=== PATIENT | male | born 1950 | race Two or more races ===

== ENCOUNTER 2019-11-22 08:35 | Outpatient (REF) | payer MEDICARE, OTHER, SELFPAY ==
[2019-11-22 10:15] LABS: Estmated Average Glucose 128; Hemoglobin A1C 6.1 % (4.0-6.0)
[2019-11-22 13:57] LABS: Cholesterol 186 mg/dL (0-200); Glucose 91 mg/dL (65-115); HDL Cholesterol 62 mg/dL (60-100); LDL Cholesterol Calculated 108 mg/dL (50-129); LDL HDL Ratio 1.74 RATIO (0.00-3.22); Triglycerides 78 mg/dL (0-150)
== END 2019-11-22 08:36 | disposition home or self-care (01) ==
LOC: LAB 08:35
PROVIDERS: Family Provider Family Medicine; PCP Family Medicine; Visit Provider Dermatology
DX: Z01.89 Encounter for other specified special examinations (principal)
CPT/HCPCS: 80061; 82947; 83036

== ENCOUNTER → 2020-03-13 10:08 | Outpatient (BNVA) | payer MEDICARE, OTHER, SELFPAY | PROVIDERS: Family Provider Family Medicine; PCP Family Medicine; Referring Provider Family Medicine; Visit Provider Orthopaedic Surgery | DX: M17.11 Unilateral primary osteoarthritis, right knee (principal) | CPT/HCPCS: 73560; 73565 ==

== ENCOUNTER 2020-03-23 09:40 | Outpatient (CLI) | payer MEDICARE, OTHER, SELFPAY ==
--- NOTE | 2020-03-23 09:58 | MR_ITS ---
WS: [id number] MRI LEFT SHOULDER NONCONTRAST TECHNIQUE: Sagittal T2, coronal T1, T2 and proton density imaging. Axial gradient PDE imaging. CLINICAL INFORMATION: Z98.890 Other specified postprocedural states... COMPARISON: MRI November 05, 2018 FINDINGS: Prior postoperative changes rotator cuff anchors. Postoperative changes are new since the prior exami nations. Repair of the anterior supraspinatus previously described full-thickness tear. Moderate dege nerative arthritis at the AC joint. Mild narrowing of the subacromial space. Chronic thinning of the distal supraspinatus and infraspinatus tendons which appear intact. Biceps te ndon is atrophic within the bicipital groove. This appears progressed from previous with suspected in tra-articular tear of the biceps tendon. Soft tissue thickening at the biceps labral anchor likely du e to retraction. Intrasubstance tear of the proximal subscapularis tendon is unchanged. Degenerative fraying of the gl enoid labrum. MR/MR shoulder LT wo con* [id number] IMPRESSION: 1. Postoperative changes are new since the prior examination with rotator cuff repair. 2. Chronic thinning of the distal supraspinatus which appears intact. 3. Chronic appearing thinning of the distal infraspinatus which appears intact . 4. Normal teres minor. 5. Intrasubstance tear involving the subscapularis similar to previous. 6. Atrophic biceps tendon within the bicipital groove. Intra-articular tear in volving the biceps tendon with thickening and retraction of the biceps labral a nchor. This appears new from previous. Some of this may be postoperative. 7. Moderate degenerative arthritis at the AC joint with mild edema.
== END 2020-03-23 09:41 | disposition home or self-care (01) ==
LOC: RADWPI 09:53
PROVIDERS: Family Provider Family Medicine; PCP Family Medicine; Visit Provider Orthopaedic Surgery
DX: Z98.890 Other specified postprocedural states (principal); S46.812A Strain of other muscles, fascia and tendons at shoulder and upper arm level, left arm, initial encounter; X58.XXXA Exposure to other specified factors, initial encounter; M19.012 Primary osteoarthritis, left shoulder
CPT/HCPCS: 73221

== ENCOUNTER 2020-07-31 07:21 | Outpatient (CLI) | payer MEDICARE, OTHER, SELFPAY ==
--- NOTE | 2020-07-14 08:33 | PC.NURSE ---
on 07/14 pt came in for stress test. pt stated he had a half a cup of coffee this am and ate breakfast. i gave pt instruction sheet with instruction for the day before and the morning of newly scheduled stress test. pt stated he never received instruction sheet.
--- NOTE | 2020-07-31 07:29 | NMCV_ITS ---
NM kanu perf SPECT r/s* [id number] AshleyRizwan bai Age: 69 Gender: M : 1950 Exam Date: 07/31/2020 08:48 Ordering Phys: Landon Gilliland MD Technologist: ABDOULAYE Caputo Exam Location: [facility] Indications: SHORTNESS OF BREATH STRESS TEST [facility] IMAGE PROTOCOL Rest/Stress 1 Exercise Day Radiopharmaceutical Dose (mCi) Administration Site Administered by Rest: Tc-99m 10.7 IV ABDOULAYE Ibarra Sestamibi Stress:Tc-99m 32.6 IV ABDOULAYE Ibarra Sestamibi Rest: 31-Jul-2020 60 Discovery 630 Stress: 31-Jul-2020 15 Discovery 630 Radiopharmaceutical was injected at 90 % maximum heart rate. Images obtained in supine and prone position. SPECT RESULTS Technical Quality: Good Raw Data Analysis: Normal Image Corrections: Patient motion artifact - motion correction applied to stress images. Subdiaphragmatic attenuation artifact. Summed Stress Score: 5 Summed Rest Score: 4 Summed Difference Score: 2 PERFUSION FINDINGS Small size perfusion abnormality of mild severity of mid inferoseptal, apical septal and apical inferior wall on rest images with mild reversibility in mid inferior wall on supine stress images. There is improved tracer uptake on prone stress images. This is suggestive of attenuation artifact. FUNCTIONAL RESULTS (calculated via Gated SPECT) Stress Image LV EF (%): 58 Stress EDV (mL):129 TID: 0.81 Stress ESV (mL):54 FUNCTIONAL FINDINGS: The left ventricle is normal in size. Transient Ischemia Dilatation of 0.81. There is normal left ventricular systolic function. The left ventricular ejection fraction is normal with a value of 58%. There is normal left ventricular wall thickening. Normal end-diastolic and end-systolic volumes. IMPRESSIONS 1. Myocardial perfusion imaging is normal. Attenuation artifact noted in inferior and inferoseptal yi. 2. The left ventricular ejection fraction is normal with a value of 58%. 3. Overall left ventricular systolic function is normal without regional wall motion abnormalities. 4. No coronary ischemia based on the study. 5. No prior similar studies to compare. Cristiane Blanchard MD (Electronically Signed) Final Date: 03 August 2020 18:50 S
--- NOTE | 2020-07-31 07:29 | ECG_ITS ---
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 Interpretive Statements NAME OF STUDY: EXERCISE SESTAMIBI STRESS TEST INDICATION: Shortness of Breath Baseline blood pressure of 123/90 mm Hg, heart rate 84 beats per minute and oxygen saturation 97%. EKG showed normal sinus rhythm, normal axis with possible old anteroseptal infarct. The patient exercised for 10 minutes 17 seconds on a standard Rohan protocol. Patient attained a maximum heart rate of 144 beats per minute(94% of the maximum predicted heart rate) with a blood pressure at the peak exercise of 194/105 mm Hg and oxygen saturation 89%. The EKG at the peak exercise revealed sinus tachycardia with no significant ST-T wave changes. Frequent isolated PVCs noted at peak exercise. Patient did not have any chest pain or any significant arrhythmis with the exercise. During the recovery phase, there were no new changes. Blood pressure at the end of the recovery phase was 165/106 mm Hg with a heart rate of 77 beats per minute and oxygen saturation 97%. CONCLUSION: 1. Normal EKG response to treadmill exercise. 2. No exercise-induced chest pain or cardiac arrhythmia 3. Excellent exercise tolerance, attained a maximum of 13.5 METs. Maximum VO2 of 47.3 mL/kg/min. 4. Baseline normal blood pressure with normal response to exercise. 5. Perfusion scan will be documented separately. Electronically Signed On 08-03-2020 18:41:54 CDT by Cristiane Blanchard M.D. [id number]
[2020-07-31 09:23] VITALS: BMI 27.6
[2020-07-31 10:02] VITALS: BP 165/106; PULSE 75
== END 2020-07-31 07:22 | disposition home or self-care (01) ==
LOC: CDL 07:21
PROVIDERS: PCP Family Medicine; Visit Provider Family Medicine
DX: R06.02 Shortness of breath (principal)
CPT/HCPCS: 78452; 93017; A9500

== ENCOUNTER 2020-10-28 13:29 | Outpatient (CLI) | payer MEDICARE, OTHER, SELFPAY ==
--- NOTE | 2020-10-28 13:34 | MR_ITS ---
WS: [id number] MRI LUMBAR SPINE NONCONTRAST TECHNIQUE: Sagittal T1, T2 and STIR imaging. Axial T1 and T2 imaging. CLINICAL INFORMATION: RIGHT SIDE SCIATICA COMPARISON: FINDINGS: Counting performed from the craniocervical junction. 6 lumbar type vertebral bodies labeled L1 through L6. Lumbar scoliosis. No acute compression. No high-grade central canal stenosis. Degenerative disc disea se progressed since 2012. L1-L2: Mild annular bulging. Mild facet arthropathy. Spinal canal and foramen are patent. L2-L3: Mild disc bulging with osteophytic ridging. Impingement on the right subarticular recess. Mild right and no significant left foraminal narrowing. Mild facet arthropathy. L3-L4: Mild disc bulging with mild central canal stenosis. Narrowing of the right subarticular recess . Moderate facet arthropathy. Moderate right foraminal narrowing. L4-L5: Mild disc bulging with endplate ridging. Mild central canal stenosis. Impingement on the left subarticular recess. Mild right foraminal narrowing. Left foramen is patent. Moderate facet arthropat hy. L5-L6: Disc osteophyte complex with endplate ridging. Narrowing of the right subarticular recess. Mod erate left and mild right foraminal narrowing. Moderate facet arthropathy. L6-S1: Slight anterolisthesis. Disc osteophyte complex endplate ridging. Moderate facet arthropathy. Mild right and no significant left foraminal narrowing. Slight effacement of ventral thecal sac. Peripelvic left renal cysts MR/MR lumbar spine wo con* [id number] IMPRESSION: 1. Lumbar scoliosis. No acute compression. 2. Degenerative disc disease is progressed since 2012 with disc space narrowing throughout the lumbar spine. 3. Counting is performed from the craniocervical junction with 6 lumbar type v ertebral bodies labeled L1 through 6. 4. Mild central canal stenosis L3-L4 and L4-L5 due to small disc osteophyte pr otrusions. Impingement on the right subarticular recess L3-L4 and left subartic ular recess L4-5. 5. Disc osteophyte complex with impingement on the right L5-L6 subarticular re cess. 6. Mild to moderate foraminal narrowing worse at right L3-4, right L4-5, and l eft L5-L6.
== END 2020-10-28 13:30 | disposition home or self-care (01) ==
LOC: RADSHAW 13:33
PROVIDERS: PCP Family Medicine; Visit Provider Family Medicine
DX: M54.31 Sciatica, right side (principal); M25.78 Osteophyte, vertebrae; M48.061 Spinal stenosis, lumbar region without neurogenic claudication; M51.36 Other intervertebral disc degeneration, lumbar region; M41.86 Other forms of scoliosis, lumbar region
CPT/HCPCS: 72148

== ENCOUNTER → 2020-10-29 14:43 | Outpatient (BNVA) | payer MEDICARE, OTHER, SELFPAY | PROVIDERS: PCP Family Medicine; Referring Provider Family Medicine; Visit Provider Orthopaedic Surgery | DX: M77.8 Other enthesopathies, not elsewhere classified (principal); M46.06 Spinal enthesopathy, lumbar region; M54.5 Low back pain; M25.551 Pain in right hip; M47.896 Other spondylosis, lumbar region | CPT/HCPCS: 72114; 73502 ==

== ENCOUNTER → 2020-11-05 08:41 | Outpatient (BNVA) | payer MEDICARE, OTHER, SELFPAY | PROVIDERS: PCP Family Medicine; Referring Provider Orthopaedic Surgery; Visit Provider Anesthesiology Pain Medicine | DX: M54.9 Dorsalgia, unspecified (principal); M47.816 Spondylosis without myelopathy or radiculopathy, lumbar region; M51.36 Other intervertebral disc degeneration, lumbar region; M19.90 Unspecified osteoarthritis, unspecified site; M25.551 Pain in right hip | CPT/HCPCS: 99205 ==

== ENCOUNTER → 2020-11-09 08:33 | Outpatient (BNVA) | payer MEDICARE, OTHER, SELFPAY | PROVIDERS: PCP Family Medicine; Visit Provider Anesthesiology Pain Medicine | DX: M25.551 Pain in right hip (principal); M54.9 Dorsalgia, unspecified | CPT/HCPCS: 20610; 77002; J1030; J3490 ==

== ENCOUNTER → 2020-11-17 08:49 | Outpatient (BNVA) | payer MEDICARE, OTHER, SELFPAY | PROVIDERS: PCP Family Medicine; Visit Provider Anesthesiology Pain Medicine | DX: M25.551 Pain in right hip (principal); M79.604 Pain in right leg; M47.816 Spondylosis without myelopathy or radiculopathy, lumbar region; M51.36 Other intervertebral disc degeneration, lumbar region; M54.9 Dorsalgia, unspecified; M19.90 Unspecified osteoarthritis, unspecified site | CPT/HCPCS: 99215 ==

== ENCOUNTER → 2020-11-20 08:16 | Outpatient (BNVA) | payer MEDICARE, OTHER, SELFPAY | PROVIDERS: PCP Family Medicine; Visit Provider Anesthesiology Pain Medicine | DX: M54.16 Radiculopathy, lumbar region (principal); M54.9 Dorsalgia, unspecified | CPT/HCPCS: 64483; 64484; J1100; J3490 ==

== ENCOUNTER → 2020-12-07 14:38 | Outpatient (BNVA) | payer MEDICARE, OTHER, SELFPAY | PROVIDERS: PCP Family Medicine; Visit Provider Anesthesiology Pain Medicine | DX: M54.9 Dorsalgia, unspecified (principal); M19.90 Unspecified osteoarthritis, unspecified site; M47.816 Spondylosis without myelopathy or radiculopathy, lumbar region; M51.36 Other intervertebral disc degeneration, lumbar region | CPT/HCPCS: 99214 ==

== ENCOUNTER → 2020-12-21 12:56 | Outpatient (BNVA) | payer MEDICARE, OTHER, SELFPAY | PROVIDERS: PCP Family Medicine; Visit Provider Anesthesiology Pain Medicine | DX: M47.816 Spondylosis without myelopathy or radiculopathy, lumbar region (principal); M54.9 Dorsalgia, unspecified | CPT/HCPCS: 64493; 64494; 64495; J3490 ==

== ENCOUNTER → 2020-12-28 10:11 | Outpatient (BNVA) | payer MEDICARE, OTHER, SELFPAY | PROVIDERS: PCP Family Medicine; Visit Provider Anesthesiology Pain Medicine | DX: M54.9 Dorsalgia, unspecified (principal); M19.90 Unspecified osteoarthritis, unspecified site; M47.816 Spondylosis without myelopathy or radiculopathy, lumbar region; M51.36 Other intervertebral disc degeneration, lumbar region | CPT/HCPCS: 99214 ==

== ENCOUNTER → 2021-04-21 14:05 | Outpatient (BNVA) | payer MEDICARE, OTHER, SELFPAY | PROVIDERS: PCP Family Medicine; Visit Provider Anesthesiology Pain Medicine | DX: M47.816 Spondylosis without myelopathy or radiculopathy, lumbar region (principal); M54.9 Dorsalgia, unspecified; Z87.891 Personal history of nicotine dependence | CPT/HCPCS: 64635; 64636; J1030 ==

== ENCOUNTER → 2021-05-03 09:51 | Outpatient (BNVA) | payer MEDICARE, OTHER, SELFPAY | PROVIDERS: PCP Family Medicine; Visit Provider Anesthesiology Pain Medicine | DX: M51.36 Other intervertebral disc degeneration, lumbar region (principal); M47.816 Spondylosis without myelopathy or radiculopathy, lumbar region; M25.551 Pain in right hip; M19.90 Unspecified osteoarthritis, unspecified site; Z87.891 Personal history of nicotine dependence | CPT/HCPCS: 99214 ==

== ENCOUNTER → 2021-05-07 13:13 | Outpatient (BNVA) | payer MEDICARE, OTHER, SELFPAY | PROVIDERS: PCP Family Medicine; Visit Provider Anesthesiology Pain Medicine | DX: M25.551 Pain in right hip (principal); M54.9 Dorsalgia, unspecified; Z87.891 Personal history of nicotine dependence | CPT/HCPCS: 20610; 77002; J1030; J3490 ==

== ENCOUNTER → 2021-05-17 13:30 | Outpatient (BNVA) | payer MEDICARE, OTHER, SELFPAY | PROVIDERS: PCP Family Medicine; Visit Provider Anesthesiology Pain Medicine | DX: M47.816 Spondylosis without myelopathy or radiculopathy, lumbar region (principal); Z87.891 Personal history of nicotine dependence | CPT/HCPCS: 64635; 64636; J1030 ==

== ENCOUNTER 2021-05-26 08:52 | Outpatient (CLI) | payer MEDICARE, OTHER, SELFPAY ==
--- NOTE | 2021-05-26 09:30 | XR_ITS ---
WS: [id number] Chest 2 views, 05/26/2021 Clinical Data: sob Comparison: Portable chest, 07/16/2017. Findings: No nodules, masses or effusions are seen. The heart is normal. The pulmonary vascularity is not increased. No pneumonia or pneumothorax is seen. The aortic arch and descending aorta show calci fication and tortuosity. The diaphragms are flattened. XR/XR chest 2V* [id number] Impression: Atherosclerosis and hyperinflation.
== END 2021-05-26 08:53 | disposition home or self-care (01) ==
LOC: RAD 08:56
PROVIDERS: PCP Family Medicine; Visit Provider Internal Medicine Critical Care Medicine
DX: R06.02 Shortness of breath (principal); I70.90 Unspecified atherosclerosis
CPT/HCPCS: 71046

== ENCOUNTER → 2021-07-15 08:46 | Outpatient (BNVA) | payer MEDICARE, OTHER, SELFPAY | PROVIDERS: PCP Family Medicine; Visit Provider Internal Medicine Critical Care Medicine | DX: Z20.822 Contact with and (suspected) exposure to COVID-19 (principal) | CPT/HCPCS: 87635 ==

== ENCOUNTER 2021-07-21 09:03 | Outpatient (CLI) | payer MEDICARE, OTHER, SELFPAY ==
--- NOTE | 2021-07-21 13:18 | PFTS_ITS ---
Date of Study:07/21/21 Date of Dictation: MECHANICS: Forced vital capacity (FVC) is normal. Forced expiratory volume in one second (FEV1) is reduced. FEV1/FVC is reduced. FLOW VOLUME LOOP: Reduced flow at all lung volumes with significant scooping. LUNG VOLUMES: Total lung capacity (TLC) is increased. Residual volume (RV) is increased. DIFFUSING CAPACITY FOR CARBON MONOXIDE: Normal. INTERPRETATION: The pulmonary function tests are consistent with moderate airflow obstruction. There is a significant postbronchodilator response. Lung volumes are consistent with hyperinflation and air trapping. Gas exchange (DLCO) is normal. MTDD
== END 2021-07-21 09:04 | disposition home or self-care (01) ==
LOC: RT 09:05
PROVIDERS: PCP Family Medicine; Visit Provider Internal Medicine Critical Care Medicine
DX: R06.02 Shortness of breath (principal)
CPT/HCPCS: 94060; 94726; 94729; J7611

== ENCOUNTER 2022-01-28 14:06 | Emergency (ER) | payer MEDICARE, OTHER, SELFPAY ==
[2022-01-28 14:28] VITALS: BP 118/64; PULSE 67; RESP 16; TEMP 36.6; O2SAT 94; BMI 27.6
--- NOTE | 2022-01-28 15:52 | USR_ITS ---
PROCEDURE INFORMATION: Exam: US Duplex Right Lower Extremity Veins, Limited Exam date and time: 01/28/2022 4:29 PM Age: 71 years old Clinical indication: Pain; Swelling (edema) of limb; Lower extremity, right; Leg, lower; Prior surgery; Surgery date: 1-6 months; Surgery type: RT hip; Patient HX: Recent fall; Additional info: Swelling and concern for dvt TECHNIQUE: Imaging protocol: Real-time Duplex ultrasound of the Right Lower Extremity with 2-D cortez scale, color Doppler flow and spectral waveform analysis with image documentation. Limited exam was focused on the right lower extremity veins. COMPARISON: CT abdomen pelvis wo con [id number] 10/23/2018 10:37 PM FINDINGS: Right deep veins: Unremarkable. The common femoral, femoral, proximal profunda femoral and popliteal veins are patent without thrombus. Normal Doppler waveforms. Normal compressibility and/or augmentation response. Right superficial veins: Unremarkable. Saphenofemoral junction is patent without thrombus. Soft tissues: Unremarkable. US/[place] [id number] IMPRESSION: No evidence of deep vein thrombosis.
--- NOTE | 2022-01-28 16:03 | ED_ITS ---
HPI - Extremity Problem General: Chief complaint: Extremity Problem,Nontraumatic Stated complaint: Fall, poss bloodclot Time Seen by Provider: 01/28/22 15:42 History of Present Illness: Patient comes in with right leg swelling. States that he fell about a week ago landing on his right hip which was replaced surgically about 6 months ago. States that since that time he has developed significant swelling in his right lower extremity. States he already knows that he has arthritis in the knee on the right side and is scheduled for consultation for replacement this next week. States that he was directed to the emergency department with concerns for blood clot. Associated symptoms: Deny chest pain, fever(s) or rash Review of Systems Const: Denies: fever(s) or body aches Eyes: Denies: change in vision or blurry vision ENMT: Denies: throat pain or odynophagia Card: Denies: chest pain or palpitations Resp: Denies: dyspnea or productive cough GI: Denies: abdominal pain, nausea or vomiting : Denies: flank pain or dysuria Musc: Reports: other (Right lower extremity swelling and pain); Denies: neck pain or back pain Skin/Breast: Denies: rash or pruritus Neuro: Denies: headache(s) or numbness in extremities Psych: Denies: anxiety or change in appetite Endo: Denies: polyuria or excessive sweating PFSH ED PFSH: Medical History Atopic dermatitis Barretts esophagus Chronic low back pain Elevated liver enzymes Hiatal hernia with GERD Hypercholesterolemia Hyperglycemia Testosterone deficiency Surgical History History of appendectomy History of bowel resection History of hernia repair Status post arthroscopy of left shoulder Family History Other Cancer Denies family history of Anesthesia complication Bleeding disorder Social History Smoking and tobacco status: former smoker Quit status (tobacco): has quit using tobacco Year quit tobacco: 1991 Former quit date comment: Hx of 1 PPD x 21 Years Second hand smoke exposure: No Smoking risk assessment/counseling performed?: No Alcohol intake: current Alcohol intake frequency: few times a month Alcohol type: beer Counseling given: No Counseling given: No Lives independently: Yes Household members: spouse Marital status: Current occupational status: retired 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 History of recent travel: No Current gender identity: Male Physical Exam Const: COMMON NORMALS: no acute distress, patient oriented x3, healthy appearing and alert HENMT: COMMON NORMALS: normocephalic and atraumatic HEAD & SCALP: normocephalic and atraumatic Eye: COMMON NORMALS: Equal, round and reactive pupils present and EOMs intact bilaterally PUPIL: Yes Equal, round and reactive pupils present Neck/C-Spine: COMMON NORMALS: full ROM and supple Resp: COMMON NORMALS: normal respiratory effort, No retractions and No use of accessory muscles Cardio: COMMON NORMALS: regular rate and regular rhythm RATE: regular rate RHYTHM: regular rhythm GI: COMMON NORMALS: Normal to inspection, nondistended, normoactive bowel sounds present, Soft to palpation and non-tender PALPATION: Yes Soft to p alpation Back/Pelvis: COMMON NORMALS: thoracic and lumbar spine normal to inspection and no thoracic nor lumbar tenderness Extremity: NARRATIVE EXTREMITY EXAM: Right lower extremity swelling with tenderness of his posterior calf Neuro: COMMON NORMALS: patient oriented x3 SENSORIUM/ORIENTATION: Yes alert Psych: COMMON NORMALS: mental status grossly normal and cooperative Skin: COMMON NORMALS: no rashes or lesions noted and no wounds GENERAL SKIN EXAM: no rashes or lesions noted Course Vital Signs: Vital signs: Vital Signs Temperature 97.8 F 01/28/22 14:28 Pulse Rate 67 01/28/22 14:28 Respiratory Rate 16 01/28/22 14:28 Blood Pressure 118/64 01/28/22 14:28 Pulse Oximetry 94 01/28/22 14:28 MDM - Extremity (Nontraumatic) Medical Decision Making Patient comes in with right leg swelling. States that he fell about a week ago landing on his right hip which was replaced surgically about 6 months ago. States that since that time he has developed significant swelling in his right lower extremity. States he already knows that he has arthritis in the knee on the right side and is scheduled for consultation for replacement this next week. States that he was directed to the emergency department with concerns for blood clot. On physical exam his right leg is swollen when compared to the left leg. Will check ultrasound, and reassess. On reassessment I talked to the patient about the test results. Will discharge home at this time with precautions to return for worsening or changing symptoms. Lab Data Radiology Impressions Venous Duplex 01/28/22 15:52 IMPRESSION: No evidence of deep vein thrombosis. Discharge Plan Discharge Patient Disposition: Home Clinical Impression: Pain and swelling of right lower leg Condition: Stable Prescriptions: No Action simvastatin [Zocor] 20 mg tablet 20 mg PO DAILY 0RF fluticasone propionate [Allergy Relief (fluticasone)] 50 mcg/actuation spray,suspension 1 spray INTRANASAL PRN PRN (Reason: Allergy Symptoms) 0RF Rx Instructions: administer into each nostril esomeprazole magnesium 20 mg capsule,delayed release(DR/EC) 20 mg PO DAILY 0RF polyethylene glycol 3350 [Miralax] 17 gram powder in packet 17 g PO BID 0RF docusate sodium 100 mg capsule 100 mg PO BID 0RF albuterol sulfate 90 mcg/actuation HFA aerosol inhaler 2 puff inhalation Q6H PRN (Reason: shortness of breath or wheezing) 30 Days Qty: 8.5 4RF Discharge Orders: Discharge ED (Routine); Ordered 01/28/22 Ordered By: Landon Hernandes Referrals: Landon Gilliland MD [Primary Care Provider] - Coding Level of Care Code ED Ophthalmology Surgical Technician for Chg Fwd Exam Comprehensive
[2022-01-28] MEDS: ketorolac 60 mg/2 mL INJ IM (16:06)
[2022-01-28 17:37] VITALS: BP 128/94; PULSE 64; RESP 16; O2SAT 97
== END 2022-01-28 17:38 | disposition home or self-care (01) ==
PROVIDERS: Emergency Provider Emergency Medicine; PCP Family Medicine
DX: M79.89 Other specified soft tissue disorders (principal); M79.661 Pain in right lower leg; Z96.641 Presence of right artificial hip joint
CPT/HCPCS: 93971; 96372; 99283; J1885

== ENCOUNTER → 2022-04-20 10:46 | Outpatient (BNVA) | payer MEDICARE, OTHER, SELFPAY | PROVIDERS: PCP Family Medicine; Visit Provider Internal Medicine Critical Care Medicine | DX: J45.909 Unspecified asthma, uncomplicated (principal); R06.02 Shortness of breath; Z87.891 Personal history of nicotine dependence | CPT/HCPCS: 82785; 86003; 99213; 99214 ==

== ENCOUNTER 2022-05-09 18:02 | Inpatient (IN) | payer MEDICARE, OTHER, SELFPAY ==
[2022-05-09] VITALS (9 sets, daily range): BP systolic 98–150; BP diastolic 66–93; PULSE 18–82; RESP 16–20; TEMP 36.6–37.1; O2SAT 95–97; BMI 27.6
[2022-05-09 19:32] LABS: Basophils % 0.3 %; Eosinophils % 0.3 %; Hematocrit 47.1 % (42.0-52.0); Hemoglobin 14.7 g/dL (11.7-16.6); Lymphocytes # 1.9 10^3/uL (0.8-4.8); Lymphocytes % 21.7 %; Mean Corpuscular HGB Conc 31.2 g/dL (30.0-36.0); Mean Corpuscular Hemoglobin 29.6 pg (28.0-34.0); Mean Platelet Volume 10.2 fL (7.4-10.4); Monocytes # 0.8 10^3/uL (0.2-0.9); Monocytes % 8.5 %; Neutrophils # 6.05 10^3/uL (1.8-7.7); Nucleated Red Blood Cells % 0 %; Platelet Count 215 10^3/cmm (130-400); Red Blood Count 4.96 10^6/uL (4.1-5.3); Red Cell Distribution Width 14.2 % (12.1-15.1); White Blood Count 8.8 10^3/uL (4.0-10.0)
--- NOTE | 2022-05-09 19:45 | CTR_ITS ---
PROCEDURE INFORMATION: Exam: CT Abdomen And Pelvis With Contrast Exam date and time: 05/09/2022 8:46 PM Age: 71 years old Clinical indication: Abdominal tenderness and bloating; Prior surgery; Surgery date: 6+ months; Surgery type: Hiatal hernia, barrets esophagus, appx, bowel hernia repair; Additional info: Abd distension, HX of sbo, colectomy, hiatal hernia TECHNIQUE: Imaging protocol: Computed tomography of the abdomen and pelvis with contrast. Radiation optimization: All CT scans at this facility use at least one of these dose optimization techniques: automated exposure control; mA and/or kV adjustment per patient size (includes targeted exams where dose is matched to clinical indication); or iterative reconstruction. Contrast material: OMNIPAQUE 350; Contrast volume: 95 ml; Contrast route: INTRAVENOUS (IV); COMPARISON: CT abdomen pelvis wo con [id number] 10/23/2018 10:37 PM RADIATION DOSE METRICS: Total DLP (mGy-cm): 1590.73 FINDINGS: Liver: Normal. No mass. Gallbladder and bile ducts: Cholecystectomy. The bile ducts are normal. Pancreas: Normal. No ductal dilation. Spleen: Normal. No splenomegaly. Adrenal glands: Normal. No mass. Kidneys and ureters: Multiple small hypodensities in the central kidneys, left greater than right are most likely small central cysts, Hounsfield units less than 20. No follow-up imaging recommended. No calculus or hydronephrosis. Stomach and bowel: Partial resection of the proximal colon with ileocolonic anastomosis at the hepatic flexure. Moderate stool throughout the colon to the rectum. Multiple loops of dilated small bowel with nondifferential air-fluid levels measuring up to 3.9 cm. An exact transition point is not identified but is most likely in the right abdomen. The terminal ileum is relatively decompressed. Anterior laparotomy scar. Appendix: No evidence of appendicitis. Intraperitoneal space: Pelvic ascites. No free air. Vasculature: Arterial calcifications. No aneurysm. Lymph nodes: Unremarkable. No enlarged lymph nodes. Urinary bladder: Unremarkable as visualized. Reproductive: Small calcified testicles. Coarse calcifications in a normal sized prostate. Bones/joints: Right hip arthroplasty hardware with streak artifact. Degenerative and scoliotic spine. No acute fracture. Soft tissues: See Stomach and bowel finding. CT/CT abdomen pelvis w con* [id number] IMPRESSION: 1. Distal small bowel obstruction which may be partial. 2. Large volume of stool in the colon could indicate constipation. 3. Pelvic ascites. COMMENTS: Consistent with the [employer] [place] [employer]'s Incidental Findings Committee white paper (J Am Shawna Radiol 2018): Any incidental renal lesion less than 1 cm or classified as too small to characterize, or any incidental cystic renal lesion characterized as simple-appearing, is likely benign. No follow-up imaging is recommended for these lesions per consensus recommendations based on imaging criteria.
[2022-05-09 19:50] LABS: INR 1.03 (0.8-1.2)
[2022-05-09 20:01] LABS: Alanine Aminotransferase 236 U/L (0-41); Albumin Level 4.4 g/dL (3.5-5.2); Alkaline Phosphatase 115 IU/L (40-130); Blood Urea Nitrogen 16 mg/dL (8-23); Calcium 9.7 mg/dL (8.5-10.5); Carbon Dioxide 30 mmol/L (22-29); Chloride 102 mmol/L (98-107); Globulin 2.8 g/dL (1.3-4.6); Glomerular Filtration Rate 95.6 mL/min (90-130); Glucose 106 mg/dL (65-115); Lipase 23 U/L (13-60); Osmolality Calculated 292 mOsm/kg (285-295); Sodium 140 mmol/L (136-145); Total Bilirubin 1.2 mg/dL (0.15-1.2); Total Protein 7.2 g/dL (6.6-8.7)
--- NOTE | 2022-05-09 20:02 | ECG_ITS ---
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 Measurements Intervals [place] Rate: 74 P: 74 IA: 168 QRS: 52 QRSD: 90 T: 78 QT: 378 QTc: 421 Interpretive Statements SINUS RHYTHM NONSPECIFIC ST & T-WAVE ABNORMALITY Compared to ECG 11/19/2018 11:49:25 T-wave abnormality now present Electronically Signed On 05-09-2022 21:00:42 CDT by Franky Sterling M.D. [id number]
--- NOTE | 2022-05-09 20:06 | W.ED.GENADLT ---
HPI - General Adult General: Chief complaint: Nausea/Vomiting/Diarrhea Stated complaint: Throwing up black stuff-sent by Time Seen by Provider: 05/09/22 19:23 History of Present Illness: Patient is a 71-year-old male with a history of colectomy, multiple abdominal hernia repair, hiatal hernia, small bowel obstruction presenting to the emergency room with complaints of intermittent diffuse abdominal pain, nausea/vomiting. Patient tells me that since yesterday he has had over 10 episodes of emesis. Patient's last episode of emesis which his noted earlier today was dark. Patient reports that yesterday he had some abdominal pain but today has not intermittent dull pain throughout. Patient denies any melena/hematochezia, diarrhea, or complaints. No history of renal colic. Patient has been able to tolerate p.o. Patient tells me that he is either concerned about small obstruction recurrent upper GI bleed. Patient is not on any anticoagulation. Patient has no history of cirrhosis, prior peptic ulcers, recent heavy NSAIDs use. Onset:1 day ago Duration:1 day Location:home Severity:moderate Associated symptoms: Reports nausea and vomiting; Deny chest pain, dyspnea, rash or palpitations Review of Systems Const: Denies: fever(s) or chills Eyes: Denies: change in vision ENMT: Denies: mouth pain Card: Denies: chest pain or palpitations Resp: Denies: dyspnea or non-productive cough GI: Reports: abdominal pain, nausea, vomiting and other (+1 episode of dark emesis); Denies: diarrhea : Denies: dysuria Musc: Denies: extremity pain Skin/Breast: Denies: rash or new lesions Neuro: Denies: weakness in extremities Psych: Reports: other (Normal mood) Luis A/Lymph: Denies: easy bruising PFSH ED PFSH: Medical History Atopic dermatitis Barretts esophagus Chronic low back pain Elevated liver enzymes Hiatal hernia with GERD Hypercholesterolemia Hyperglycemia Testosterone deficiency Surgical History History of appendectomy History of bowel resection History of hernia repair Status post arthroscopy of left shoulder Family History Other Cancer Denies family history of Anesthesia complication Bleeding disorder Social History Smoking and tobacco status: former smoker Quit status (tobacco): has quit using tobacco Year quit tobacco: 1991 Former quit date comment: Hx of 1 PPD x 21 Years Second hand smoke exposure: No Smoking risk assessment/counseling performed?: No Alcohol intake: current Alcohol intake frequency: few times a month Alcohol type: beer Counseling given: No Counseling given: No Lives independently: Yes Household members: spouse Marital status: Current occupational status: 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 History of recent travel: No Current gender identity: Male Physical Exam Const: COMMON NORMALS: alert HENMT: COMMON NORMALS: atraumatic HEAD & SCALP: atraumatic MOUTH: moist mucous membranes not abnormal Eye: COMMON NORMALS: EOMs intact bilaterally and conjunctivae normal CONJUNCTIVA: Yes conjunctivae normal Neck/C-Spine: COMMON NORMALS: full ROM and supple Resp: COMMON NORMALS: normal respiratory effort and clear to auscultation bilaterally AUSCULTATION: clear to auscultation bilaterally Cardio: COMMON NORMALS: regular rate RATE: regular rate GI: COMMON NORMALS: Soft to palpation and non-tender PALPATION: Yes Soft to palpation OTHER: No focal TTP. NO guarding rebound, guarding, rigidity. No CVA tenderness to percussion. Neg Wetzel/Neg McBurney's point tenderness, no suprabupic tenderness to palpation. Extremity: COMMON NORMALS: full ROM Neuro: SENSORIUM/ORIENTATION: Yes alert MOTOR EXAM: No Abnormal motor strength present and Other motor observations present (no focal motor deficits) Psych: COMMON NORMALS: speech normal SPEECH: Yes normal speech MOOD & AFFECT: Yes euthymic mood Course Vital Signs: Vital signs: Vital Signs Temperature 98.6 F 05/09/22 19:31 Pulse Rate 81 05/09/22 21:55 Respiratory Rate 18 05/09/22 22:00 Blood Pressure 103/77 05/09/22 22:00 Pulse Oximetry 97 05/09/22 21:55 [facility] - General Adult Medical Decision Making Patient is a 71-year-old male with a history of colectomy, multiple abdominal hernia repair, hiatal hernia, small bowel obstruction presenting to the emergency room with complaints of intermittent diffuse abdominal pain, nausea/vomiting. On physical exam, patient is hemodynamically stable. He has no focal abdominal tenderness to palpation. Hemoglobin of 14.7 today similar to baseline. CT abdomen pelvis did not show any acute pathologies. Patient has not had any episodes of emesis in the emergency room. Patient tolerated p.o. without any difficulty. It is hard to say whether patient had coffee-ground emesis earlier today. White count of 8.8. CT showed partial small bowel obstruction. Case was discussed with Dr. Millan who will follow patient. NG tube and KUB ordered. No signs of emesis. Disposition: admission Lab Data : 05/09/22 19:29 05/09/22 19:29 Radiology Impressions Abdomen/Pelvis CT 05/09/22 19:45 IMPRESSION: 1. Distal small bowel obstruction which may be partial. 2. Large volume of stool in the colon could indicate constipation. 3. Pelvic ascites. COMMENTS: Consistent with the [employer]'s Incidental Findings Committee white paper (J Am Shawna Radiol 2018): Any incidental renal lesion less than 1 cm or classified as too small to characterize, or any incidental cystic renal lesion characterized as simple-appearing, is likely benign. No follow-up imaging is recommended for these lesions per consensus recommendations based on imaging criteria. Laboratory Results WBC 8.8 10^3/uL (4.0-10.0) 05/09/22 19: RBC 4.96 10^6/uL (4.1-5.3) 05/09/22 19: Hgb 14.7 g/dL (11.7-16.6) 05/09/22 19: Hct 47.1 % (42.0-52.0) 05/09/22: MCV 95.0 fl (80-94) H 05/09/22 19: MCH 29.6 pg (28.0-34.0) 05/09/22 19: MCHC 31.2 g/dL (30.0-36.0) 05/09/22: RDW 14.2 % (12.1-15.1) 05/09/22 19: Plt Count 215 10^3/cmm (130-400) 05/09/22 19: MPV 10.2 fL (7.4-10.4) 05/09/22: Neut % (Auto) 69.0 % 05/09/22 19: Lymph % (Auto) 21.7 % 05/09/22 19: [place] % (Auto) 8.5 % 05/09/22: Eos % (Auto) 0.3 % 05/09/22: Baso % (Auto) 0.3 % 05/09/22: Neut # (Auto) 6.05 10^3/uL (1.8-7.7) 05/09/22: Lymph # (Auto) 1.9 10^3/uL (0.8-4.8) 05/09/22: [place] # (Auto) 0.8 10^3/uL (0.2-0.9) 05/09/22: Eos # (Auto) 0.0 10^3/uL (0.0-0.8) 05/09/22 Baso # (Auto) 0.0 10^3/uL (0.0-0.1) 05/09/22 Nucleated RBC % (auto) 0 % 05/09/22 Nucleated RBCs # 0.0 /100WBC 05/09/22: PT 13.80 SECONDS (12.1-14.9) 05/09/22: INR 1.03 (0.8-1.2) 05/09/22: Sodium 140 mmol/L (136-145) 05/09/22: Potassium 4.5 mmol/L (3.5-5.1) 05/09/22: Chloride 102 mmol/L (98-107) 05/09/22: Carbon Dioxide 30 mmol/L (22-29) H 05/09/22: Anion Gap 12.5 (5-19) 05/09/22: BUN 16 mg/dL (8-23) 05/09/22: Creatinine 0.8 mg/dL (0.7-1.2) 05/09/22: GFR Calculation 95.6 mL/min (90-130) 05/09/22: Glucose 106 mg/dL (65-115) 05/09/22: Calculated Osmolality 292 mOsm/kg (285-295) 07/25/22 19:29 Calcium 9.7 mg/dL (8.5-10.5) 05/09/22 19:29 Total Bilirubin 1.2 mg/dL (0.15-1.2) 05/09/22 19:29 AST 181 U/L (0-40) H 05/09/22 19:29 ALT 236 U/L (0-41) H 05/09/22 19:29 Alkaline Phosphatase 115 IU/L (40-130) 05/09/22 19:29 Troponin T Baseline 26 ng/L (0-15) H 05/09/22 19:29 Troponin T 120 Minute 21.31 ng/L (0-15) H 05/09/22 21:16 Delta Troponin T -4.69 ABS# (0-10) L 05/09/22 21:16 Total Protein 7.2 g/dL (6.6-8.7) 05/09/22 19: Albumin 4.4 g/dL (3.5-5.2) 05/09/22 19: Globulin 2.8 g/dL (1.3-4.6) 05/09/22 19: Lipase 23 U/L (13-60) 05/09/22 19:29 Urine Color Yellow (Yellow) 05/09/22 21:50 Urine Appearance Clear (CLEAR) 05/09/22 21:50 Urine pH 7 (5-7) 05/09/22 21:50 Ur Specific [place] 1.005 (1.005-1.030) 05/09/22 21:50 Urine Protein Neg (Negative) 05/09/22 21:50 Urine Glucose (UA) Norm (Normal) 05/09/22 21:50 Urine Ketones Negative (Negative) 05/09/22 21:50 Urine Blood Neg (Negative) 05/09/22 21:50 Urine Nitrate Negative (Negative) 05/09/22 21:50 Urine Bilirubin Neg (Negative) 05/09/22 21:50 Urine Urobilinogen 4 mg/dL (Negative) H 05/09/22 21:50 Ur Leukocyte Esterase Negative (Negative) 05/09/22 21:50 Imaging Data Other Imaging: Radiologist's impression: [address] [address] [address] Scan Report Signed Patient: Rizwan Lobato Unit #: [id number] : 1950 Age/Sex: 71 / M ADM Date: 05/09/22 Loc: ER Room/Bed: Attending Dr: Ordering Provider/Ordering MD: Janell Wilson MD Date of Service: 05/09/22 Procedure(s): CT abdomen pelvis w con* [id number] Accession Number(s): [id number] Report Number: [id number] PROCEDURE INFORMATION: Exam: CT Abdomen And Pelvis With Contrast Exam date and time: 05/09/2022 8:46 PM Age: 71 years old Clinical indication: Abdominal tenderness and bloating; Prior surgery; Surgery date: 6+ months; Surgery type: Hiatal hernia, barrets esophagus, appx, bowel hernia repair; Additional info: Abd distension, HX of sbo, colectomy, hiatal hernia TECHNIQUE: Imaging protocol: Computed tomography of the abdomen and pelvis with contrast. Radiation optimization: All CT scans at this facility use at least one of these dose optimization techniques: automated exposure control; mA and/or kV adjustment per patient size (includes targeted exams where dose is matched to clinical indication); or iterative reconstruction. Contrast material: OMNIPAQUE 350; Contrast volume: 95 ml; Contrast route: INTRAVENOUS (IV);? COMPARISON: CT abdomen pelvis wo con [id number] 10/23/2018 10:37 PM RADIATION DOSE METRICS: Total DLP (mGy-cm): 1590.73 FINDINGS: Liver: Normal. No mass. Gallbladder and bile ducts: Cholecystectomy. The bile ducts are normal. Pancreas: Normal. No ductal dilation. Spleen: Normal. No splenomegaly. Adrenal glands: Normal. No mass. Kidneys and ureters: Multiple small hypodensities in the central kidneys, left greater than right are most likely small central cysts, Hounsfield units less than 20. No follow-up imaging recommended. No calculus or hydronephrosis. Stomach and bowel: Partial resection of the proximal colon with ileocolonic anastomosis at the hepatic flexure. Moderate stool throughout the colon to the rectum. Multiple loops of dilated small bowel with nondifferential air-fluid levels measuring up to 3.9 cm. An exact transition point is not identified but is most likely in the right abdomen. The terminal ileum is relatively decompressed. Anterior laparotomy scar. Appendix: No evidence of appendicitis. Intraperitoneal space: Pelvic ascites. No free air. Vasculature: Arterial calcifications. No aneurysm. Lymph nodes: Unremarkable. No enlarged lymph nodes. Urinary bladder: Unremarkable as visualized. Reproductive: Small calcified testicles. Coarse calcifications in a normal sized prostate. Bones/joints: Right hip arthroplasty hardware with streak artifact. Degenerative and scoliotic spine. No acute fracture. Soft tissues: See Stomach and bowel finding. CT/CT abdomen pelvis w con* [id number] IMPRESSION: 1. Distal small bowel obstruction which may be partial. 2. Large volume of stool in the colon could indicate constipation. 3. Pelvic ascites. ? COMMENTS: Consistent with the [employer]'s Incidental Findings Committee white paper (J Am Shawna Radiol 2018): Any incidental renal lesion less than 1 cm or classified as too small to characterize, or any incidental cystic renal lesion characterized as simple-appearing, is likely benign. No follow-up imaging is recommended for these lesions per consensus recommendations based on imaging criteria. ? Dictated By: Mickey Tony Signed By: Mickey Tony Signed Date/Time: 05/09/222152 DD/ 45 Discharge Plan Discharge Patient Disposition: Admitted As Inpatient Clinical Impression: Vomiting, Abdominal pain, Small bowel obstruction Condition: Stable Coding Level of Care Code ED Roller Leveler for Chg Fwd Exam Comprehensive
[2022-05-09] MEDS: sodium chloride 0.9% 1,000 ML 999 ML IV (20:15)
[2022-05-09] MEDS: lidocaine 2% viscous 15 ML, aluminum-mag hydrox-simethicon 30 ML, sucralfate oral liq 1 GM PO (20:20)
[2022-05-09 20:23] LABS: Anion Gap 12.5 (5-19); Aspartate Amino Transferase 181 U/L (0-40); Potassium 4.5 mmol/L (3.5-5.1)
[2022-05-09 20:38] LABS: Troponin(5th) Baseline 26 ng/L (0-15)
[2022-05-09] MEDS: iohexol 350 mg/mL 100 mL Btl IV (20:54)
--- NOTE | 2022-05-09 21:47 | XRR_ITS ---
PROCEDURE INFORMATION: Exam: XR Abdomen Exam date and time: 05/09/2022 11:17 PM Age: 71 years old Clinical indication: Condition or disease; Other: Small bowel obstruction TECHNIQUE: Imaging protocol: Radiologic exam of the abdomen. Views: Frontal supine view of the abdomen. 1 View. COMPARISON: CT abdomen pelvis w con* [id number] 05/09/2022 8:46 PM FINDINGS: Tubes, catheters and devices: Gastric tube tip in the mid stomach. Gastrointestinal tract: Moderate stool and scattered gas throughout the colon to the rectum. Dilated loops of gas-filled small bowel measuring up to 3.4 cm. Intraperitoneal space: No visible pneumoperitoneum. Organs: Contrast in the urinary bladder. Bones/joints: Right hip arthroplasty. XR/XR KUB portable [id number] IMPRESSION: Dilated small bowel, consistent with small-bowel obstruction.
[2022-05-09 21:59] LABS: Troponin 5 2HR 21.31 ng/L (0-15); Troponin 5 2HR Delta -4.69 ABS# (0-10)
[2022-05-09 22:06] LABS: Add Urine Microscopic? NO; Charge for UA Resulting for Rev
[2022-05-09 22:15] LABS: Bilirubin Urine Neg (Negative); Blood Urine Neg (Negative); Glucose Urine UA Norm (Normal); Ketones Urine Negative (Negative); Leukocyte Esterase Urine Negative (Negative); Nitrate Urine Negative (Negative); Protein Urine Neg (Negative); Specific Gravity, Urine 1.005 (1.005-1.030); Urine Appearance Clear (CLEAR); Urine Color Yellow (Yellow); Urobilinogen Urine 4 mg/dL (Negative); pH Urine 7 (5-7)
[2022-05-09] MEDS: lidocaine 2% viscous 15 mL UDC 30 ML MUCOUS MEM (22:55)
[2022-05-10] VITALS (8 sets, daily range): BP systolic 121–158; BP diastolic 82–92; PULSE 55–73; RESP 13–18; TEMP 36.8–37.3; O2SAT 94–97
[2022-05-10] MEDS: dextrose 5%-sod chloride 0.9% 1,000 ML 75 ML IV ×2 (02:02→16:15)
[2022-05-10] MEDS: pantoprazole 40 mg SDV 80 MG IVP (02:13)
[2022-05-10] MEDS: lanolin oint 7 gm 1 APPLIC TOPICAL (02:25)
[2022-05-10 02:51] LABS: Basophils % 0.2 %; Eosinophils # 0.1 10^3/uL (0.0-0.8); Eosinophils % 1.1 %; Hemoglobin 13.5 g/dL (11.7-16.6); Lymphocytes # 1.9 10^3/uL (0.8-4.8); Lymphocytes % 33.9 %; Mean Corpuscular Hemoglobin 29.5 pg (28.0-34.0); Mean Corpuscular Volume 98.5 fl (80-94); Mean Platelet Volume 10.1 fL (7.4-10.4); Monocytes # 0.5 10^3/uL (0.2-0.9); Monocytes % 9.7 %; Neutrophils # 3.05 10^3/uL (1.8-7.7); Neutrophils % 54.9 %; Nucleated Red Blood Cells % 0 %; Platelet Count 168 10^3/cmm (130-400); Red Blood Count 4.57 10^6/uL (4.1-5.3); Red Cell Distribution Width 14.3 % (12.1-15.1); White Blood Count 5.6 10^3/uL (4.0-10.0)
--- NOTE | 2022-05-10 03:24 | P.HP_ITS ---
Providers/Chief Complaint Admitting Physician: Halima Keith MD Primary Care Provider: Landon Gilliland MD Chief Complaint: Throwing up black stuff-sent by History of Present Illness Rizwan Lobato is a 71 year old male with a past medical history of recurrent small bowel obstruction presenting today with chief complains of multiple episodes of vomiting that started yesterday. Patient estimates he has had 8-10 episodes of vomiting. Today afternoon his vomitus content changed from clear to black tarry which brought up the concern for GI bleeding and he presented into the emergency room after discussion with his primary care provider. He denies any bright red blood in vomitus. Last bowel movement was yesterday. He is currently passing flatus. Has not noticed any bleeding per rectum. Reports epigastric pain. Has had poor po intake but able to keep jello and toast down. no diarrhea. No fever. He has a history of multiple episodes of SBO/colonic obstruction in the past which have been managed conservatively. Also has a history of transverse colectomy with end-to-end anastomosis several years ago which was reportedly a result of obstruction from severely impacted feces. 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 He undergoes regular upper and lower endoscopy and has never been known to have any malignancy or IBD. Also reports a past history of Skaggs's esophagus diagnosed at [facility], reportedly improving on endoscopy 2 years ago. 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 LFTs noted to be deranged dating back to at least 2019. No known h/o cirrhosis or chronic hepatitis. Reports occasional beer intake, no binge drinking. Review of Systems General: Reports: 10 or more systems reviewed and unremarkable except in HPI and below Const: Denies: fever(s), chills or body aches Eyes: Denies: change in vision, blurry vision or photophobia ENMT: Reports: hoarseness; Denies: throat pain, enlarged tonsils, odynophagia or nasal congestion Card: Denies: chest pain, palpitations, irregular heart rhythm, edema, swelling of feet/ankles, lightheadedness, pre-syncope, dyspnea on exertion or orthopnea Resp: Denies: dyspnea, productive cough, non-productive cough, wheezing, stridor, pain on inspiration, change in phlegm color, hemoptysis or chest congestion GI: Denies: abdominal pain, nausea, vomiting, hematemesis, coffee ground emesis, dysphagia, heartburn, diarrhea, constipation, GI cramping, change in stool character, hematochezia or melena : Denies: flank pain, dysuria, urinary frequency, urinary urgency, urinary hesitancy or hematuria Musc: Denies: neck pain, back pain, extremity pain, joint swelling, joint warmth or deformity Neuro: Denies: headache(s), numbness in extremities, weakness in extremities, sensory changes, difficulty walking, frequent falls, dizziness, vertigo, behavioral changes, Slurred speech present or seizure-like activity Psych: Denies: anxiety, depression, suicidal ideation or homicidal ideation Endo: Denies: polyuria, polydipsia, tired all the time, cold intolerance or hot flashes Luis A/Lymph: Denies: easy bruising or easy bleeding Medications/Allergies Home Medications Medication Instructions Recorded Confirmed Last Taken Type fluticasone propionate 50 2 spray INTRANASAL DAILY 03/13/20 05/10/22 Unknown History mcg/actuation nasal spray,suspension (Allergy Relief (fluticasone)) albuterol sulfate 90 mcg/actuation 2 puff INHALATION Q6H PRN 30 Days 08/06/21 05/10/22 Unknown Rx aerosol inhaler #8.5 g docusate sodium 100 mg capsule 100 mg PO BID cap 08/06/21 05/10/22 01/28/22 History esomeprazole magnesium 20 mg 20 mg PO BEDTIME cap 08/06/21 05/10/22 01/28/22 History capsule,delayed release polyethylene glycol 3350 17 gram 17 g PO BID ea 08/06/21 05/10/22 01/28/22 History oral powder packet (Miralax) budesonide-formoterol HFA 80 2 puff INHALATION BID 30 Days 04/20/22 05/10/22 Unknown Rx mcg-4.5 mcg/actuation aerosol #10.2 g inhaler (Symbicort) Allergies Allergy/AdvReac Type Severity Reaction Status Date / Time hydromorphone [From Dilaudid] AdvReac Severe ADR/ALGY-Hy Verified 04/20/22 11:00 potension PFSH Acute PFSH: Medical History Atopic dermatitis Barretts esophagus Chronic low back pain Elevated liver enzymes Hiatal hernia with GERD Hypercholesterolemia Hyperglycemia Testosterone deficiency Surgical History History of appendectomy History of bowel resection History of hernia repair Status post arthroscopy of left shoulder Family History Other Cancer Denies family history of Anesthesia complication Bleeding disorder Social History Smoking and tobacco status: former smoker Quit status (tobacco): has quit using tobacco Year quit tobacco: 1991 Former quit date comment: Hx of 1 PPD x 21 Years Second hand smoke exposure: No Smoking risk assessment/counseling performed?: No Alcohol intake: current Alcohol intake frequency: few times a month Alcohol type: beer Counseling given: No Counseling given: No Lives independently: Yes Household members: spouse Marital status: Current occupational status: retired 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 History of recent travel: No Current gender identity: Male Vitals/I&O/Wt Last Vital Signs Temp 98.2 F 05/10/22 00:32 Pulse 72 05/10/22 00:32 Resp 18 05/10/22 00:32 BP 143/92 05/10/22 00:32 Pulse Ox 94 05/10/22 00:32 05/09/22 05/09/22 05/10/22 14:59 22:59 06:59 Intake Total 1000 / 1000 Balance 1000 / 1000 Weight last 48 hrs Weight 97.432 kg Weight 97.522 kg Physical Exam Narrative: General: No acute distress, AO x3 HEENT: PERRLA, pupils bilaterally equal and reactive, pallors not present, NGT i n place Chest: Normal vesicular breath sounds, no added sounds, equal good air entry bilaterally CVS: S1-S2 regular, no murmurs, no tachycardia, no gallops, no rubs Abdomen: Soft, non tender Neuro: No focal deficits, no facial deformity, AO x3, power 5/5 in all limbs Extremities: no edema, clubbing, cyanosis Data : 05/10/22 02:03 05/09/22 19:29 Other Labs: Radiology Impressions Abdomen/Pelvis CT 05/09/22 19:45 IMPRESSION: 1. Distal small bowel obstruction which may be partial. 2. Large volume of stool in the colon could indicate constipation. 3. Pelvic ascites. COMMENTS: Consistent with the [employer]'s Incidental Findings Committee white paper (J Am Shawna Radiol 2018): Any incidental renal lesion less than 1 cm or classified as too small to characterize, or any incidental cystic renal lesion characterized as simple-appearing, is likely benign. No follow-up imaging is recommended for these lesions per consensus recommendations based on imaging criteria. KUB X-Ray 05/09/22 21:47 IMPRESSION: Dilated small bowel, consistent with small-bowel obstruction. Laboratory Results WBC 5.6 10^3/uL (4.0-10.0) 05/10/22 02:03 RBC 4.57 10^6/uL (4.1-5.3) 05/10/22 02:03 Hgb 13.5 g/dL (11.7-16.6) 05/10/22 02:03 Hct 45.0 % (42.0-52.0) 05/10/22 02:03 MCV 98.5 fl (80-94) H 05/10/22 02:03 MCH 29.5 pg (28.0-34.0) 05/10/22 02:03 MCHC 30.0 g/dL (30.0-36.0) 05/10/22 02:03 RDW 14.3 % (12.1-15.1) 05/10/22 02:03 Plt Count 168 10^3/cmm (130-400) 05/10/22 02:03 MPV 10.1 fL (7.4-10.4) 05/10/22 02:03 Neut % (Auto) 54.9 % 05/10/22 02:03 Lymph % (Auto) 33.9 % 05/10/22 02:03 [place] % (Auto) 9.7 % 05/10/22 02:03 Eos % (Auto) 1.1 % 05/10/22 02:03 Baso % (Auto) 0.2 % 05/10/22 02:03 Neut # (Auto) 3.05 10^3/uL (1.8-7.7) 05/10/22 02:03 Lymph # (Auto) 1.9 10^3/uL (0.8-4.8) 05/10/22 02:03 [place] # (Auto) 0.5 10^3/uL (0.2-0.9) 05/10/22 02:03 Eos # (Auto) 0.1 10^3/uL (0.0-0.8) 05/10/22 02:03 Baso # (Auto) 0.0 10^3/uL (0.0-0.1) 05/10/22 02:03 Nucleated RBC % (auto) 0 % 05/10/22 02:03 Nucleated RBCs # 0.0 /100WBC 05/10/22 02:03 PT 13.80 SECONDS (12.1-14.9) 05/09/22 19: INR 1.03 (0.8-1.2) 05/09/22 19:29 Sodium 140 mmol/L (136-145) 05/09/22 19: Potassium 4.5 mmol/L (3.5-5.1) 05/09/22 19: Chloride 102 mmol/L (98-107) 05/09/22 19: Carbon Dioxide 30 mmol/L (22-29) H 05/09/22 19:29 Anion Gap 12.5 (5-19) 05/09/22 19: BUN 16 mg/dL (8-23) 05/09/22 19: Creatinine 0.8 mg/dL (0.7-1.2) 05/09/22 19:29 GFR Calculation 95.6 mL/min (90-130) 05/09/22 19: Glucose 106 mg/dL (65-115) 05/09/22 19:29 Calculated Osmolality 292 mOsm/kg (285-295) 05/09/22 19:29 Calcium 9.7 mg/dL (8.5-10.5) 05/09/22 19:29 Total Bilirubin 1.2 mg/dL (0.15-1.2) 05/09/22 19:29 AST 181 U/L (0-40) H 05/09/22 19:29 ALT 236 U/L (0-41) H 05/09/22 19:29 Alkaline Phosphatase 115 IU/L (40-130) 05/09/22 19:29 Troponin T Baseline 26 ng/L (0-15) H 05/09/22 19:29 Troponin T 120 Minute 21.31 ng/L (0-15) H 05/09/22 21:16 Delta Troponin T -4.69 ABS# (0-10) L 05/09/22 21:16 Total Protein 7.2 g/dL (6.6-8.7) 05/09/22 19:29 Albumin 4.4 g/dL (3.5-5.2) 05/09/22 19:29 Globulin 2.8 g/dL (1.3-4.6) 05/09/22 19:29 Lipase 23 U/L (13-60) 05/09/22 19:29 Urine Color Yellow (Yellow) 05/09/22 21:50 Urine Appearance Clear (CLEAR) 05/09/22 21:50 Urine pH 7 (5-7) 05/09/22 21:50 Ur Specific [place] 1.005 (1.005-1.030) 05/09/22 21:50 Urine Protein Neg (Negative) 05/09/22 21:50 Urine Glucose (UA) Norm (Normal) 05/09/22 21:50 Urine Ketones Negative (Negative) 05/09/22 21:50 Urine Blood Neg (Negative) 05/09/22 21:50 Urine Nitrate Negative (Negative) 05/09/22 21:50 Urine Bilirubin Neg (Negative) 05/09/22 21:50 Urine Urobilinogen 4 mg/dL (Negative) H 05/09/22 21:50 Ur Leukocyte Esterase Negative (Negative) 05/09/22 21:50 A&P Assessment and plan (1) Small bowel obstruction: CT findings as noted above NGT inserted in ER, connected to low intermittent suction, minimal output thus far NPO until surgery evaluation Prn Zofran for nausea/vomiting IVF DNS @ 75cc/hr Status: Acute (2) UGI bleed: Coffee ground appearing vomitus concerning for UGI bleed Currently hemodynamically stable, hb 14.7, will trend with am labs Protonix 80mg IVP x 1 followed by 40 mg IV every 12 hours. GI bleed may be related to esophageal trauma from excessive retching and vomiting versus gastritis/ulcers from recent high-dose steroid use. Noted past history of Skaggs's esophagus, reportedly changes were improving on last endoscopy 2 years ago. N.p.o. as above Surgery consult already placed from the ER. Status: Acute Plan # h/o asthma: continue inhaled budesonide-formeterol inh. Attestations Medical Necessity Statement*: Anticipate greater than 2 midnight admission for management of SBO and upper GI bleed Coding Level of Care Code Acute Color Technician for [facility] Fwd Diagnoses Small bowel obstruction K56.609 UGI bleed K92.2
[2022-05-10 03:49] LABS: Albumin Level 3.5 g/dL (3.5-5.2); Alkaline Phosphatase 96 IU/L (40-130); Blood Urea Nitrogen 14 mg/dL (8-23); Carbon Dioxide 25 mmol/L (22-29); Chloride 106 mmol/L (98-107); Globulin 2.3 g/dL (1.3-4.6); Glomerular Filtration Rate 111.5 mL/min (90-130); Glucose 95 mg/dL (65-115); Osmolality Calculated 290 mOsm/kg (285-295); Sodium 140 mmol/L (136-145); Total Bilirubin 1.1 mg/dL (0.15-1.2); Total Protein 5.8 g/dL (6.6-8.7)
[2022-05-10 03:50] LABS: Anion Gap 13.5 (5-19); Potassium 4.5 mmol/L (3.5-5.1)
[2022-05-10 03:51] LABS: Alanine Aminotransferase 190 U/L (0-41); Aspartate Amino Transferase 135 U/L (0-40)
[2022-05-10] MEDS: lactulose oral liq 20 gm/30 mL UDC 10 GM PO ×2 (12:45→23:57)
[2022-05-10] MEDS: magnesium citrate Btl 296 mL PO ×2 (12:45→17:07)
--- NOTE | 2022-05-10 12:48 | P.CONIM_ITS ---
Providers/Reason For Consult Consulting Physician/Specialty*: General Surgery Dr. Millan Reason for Consult*: Small bowel obstruction Attending Physician: Lucian Lange MD Primary Care Provider: Landon Gilliland MD History of Present Illness History of Present Illness Rizwan Lobato is a 71 year old male who is well-known to me who presented yesterday to the emergency room with complaints of abdominal pain, nausea and vomiting for 24 hours. Patient has previously been hospitalized for bowel obstruction which have always been managed conservatively. He denies any fevers or chills. He had a small bowel movement this morning and his NG output was minimal. Patient has been on aggressive bowel regimen with stool softeners and laxatives twice a day and usually has daily bowel movements. In the last few months he has had 2 orthopedic procedures for which she has been taking Tylenol and tramadol for pain control. Recently had coffee-ground emesis but his NG output has been clear. He has also been on steroids recently due to joint stiffness. Review of Systems General: Reports: 10 or more systems reviewed and unremarkable except in HPI and below Medications/Allergies Home Medications Medication Instructions Recorded Confirmed Last Taken Type fluticasone propionate 50 2 spray INTRANASAL DAILY 03/13/20 05/10/22 Unknown History mcg/actuation nasal spray,suspension (Allergy Relief (fluticasone)) albuterol sulfate 90 mcg/actuation 2 puff INHALATION Q6H PRN 30 Days 08/06/21 05/10/22 Unknown Rx aerosol inhaler #8.5 g docusate sodium 100 mg capsule 100 mg PO BID cap 08/06/21 05/10/22 01/28/22 History esomeprazole magnesium 20 mg 20 mg PO BEDTIME cap 08/06/21 05/10/22 01/28/22 H istory capsule,delayed release polyethylene glycol 3350 17 gram 17 g PO BID ea 08/06/21 05/10/22 01/28/22 History oral powder packet (Miralax) budesonide-formoterol HFA 80 2 puff INHALATION BID 30 Days 04/20/22 05/10/22 Unknown Rx mcg-4.5 mcg/actuation aerosol #10.2 g inhaler (Symbicort) Allergies Allergy/AdvReac Type Severity Reaction Status Date / Time hydromorphone [From Dilaudid] AdvReac Severe ADR/ALGY-Hy Verified 04/20/22 11:00 potension Current Medications Generic Name Dose Route Start Last Admin Trade Name Freq PRN Reason Stop Dose Admin Dextrose/Sodium Chloride 1,000 mls @ 75 mls/hr 05/10/22 01:45 05/10/22 02:02 Dextrose 5%-Sod Chloride 0.9% IV 75 mls/hr .[id number] DANK Administration Lactulose 10 gm 05/10/22 12:15 05/10/22 12:45 Lactulose Oral Liq 20 Gm/30 Ml Udc PO 10 gm Q12H DANK Administration Lanolin 1 applic 05/10/22 01:59 05/10/22 02:25 Lanolin Oint 7 Gm TOPICAL 1 appful PRN PRN Administration DRYNESS Fluticasone/Salmeterol 1 puff 05/10/22 08:00 05/10/22 09:25 Fluticasone-Salmeterol 250-50 Diskus INHALATION Not Given BID.RESPIRATORY DANK PFSH Acute PFSH: Medical History Atopic dermatitis Barretts esophagus Chronic low back pain Elevated liver enzymes Hiatal hernia with GERD Hypercholesterolemia Hyperglycemia Testosterone deficiency Surgical History History of appendectomy History of bowel resection History of hernia repair Status post arthroscopy of left shoulder Family History Other Cancer Denies family history of Anesthesia complication Bleeding disorder Social History Smoking and tobacco status: former smoker Quit status (tobacco): has quit using tobacco Year quit tobacco: 1991 Former quit date comment: Hx of 1 PPD x 21 Years Second hand smoke exposure: No Smoking risk assessment/counseling performed?: No Alcohol intake: current Alcohol intake frequency: few times a month Alcohol type: beer Counseling given: No Counseling given: No Lives independently: Yes Household members: spouse Marital status: Current occupational status: retired 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[employer], [employer]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 History of recent travel: No Current gender identity: Male Vitals/I&O/Wt Last Vital Signs Temp 98.3 F 05/10/22 11:07 Pulse 55 L 05/10/22 11:07 Resp 14 05/10/22 11:07 BP 158/84 05/10/22 11:07 Pulse Ox 95 05/10/22 11:07 05/09/22 05/10/22 05/10/22 22:59 06:59 14:59 Intake Total 1000 / 1000 380 / 380 Output Total 460 / 460 975 / 975 Balance 540 / 540 -595 / -595 Weight last 48 hrs Weight 214 lb 12.8 oz Weight 215 lb Physical Exam Narrative: HEENT: Normocephalic, NG to LIS Eye: Sclera /conjunctiva normal Abdomen: Soft to palpation, minimally distended, nontender, well-healed laparotomy scar Neurological: Oriented to place person and time Skin: Intact, no lesions appreciated on gross exam Data : 05/10/22 02:03 05/10/22 02:03 A&P Assessment and plan (1) UGI bleed: 71 old male who presents with small bowel obstruction but also has coffee-ground emesis. His NG aspirate has been clear. We will therefore treat him empirically with PPI therapy and EGD is not indicated at this point especially with the higher risk of aspiration and therefore the need to perform the procedure under general anesthesia. Status: Acute (2) Small bowel obstruction: 8-year-old male status post prior laparotomy who has been admitted in the past with small bowel obstruction which has been managed conservatively. CT abdomen and pelvis shows partial small bowel obstruction with significant constipation Clamp NG tube. If he tolerates it for the next 3 to 4 hours then it can be removed later today Start clear liquid diet Magnesium citrate x2 today with milk of molasses enema Start lactulose 10 cc twice daily Abdominal series tomorrow morning Status: Acute Consult Attestations Medical Necessity Statement: As per attending physician Coding Level of Care Code Acute Telephone Order Supervisor for [facility] Fwd Diagnoses UGI bleed K92.2 Small bowel obstruction K56.609
[2022-05-10] MEDS: pantoprazole 40 mg SDV IVP (13:31)
--- NOTE | 2022-05-10 14:03 | PM.PN ---
Subjective Subjective: Admitted overnight. On examination plan at bedside. NG tube in place. No more further hematemesis. Hemoglobin has remained stable. Patient is awake and alert. Denies any further nausea, vomiting. Had bowel movement early in the morning today. Passing flatus. Vitals/I&O/Wt Last Vital Signs Temp 98.3 F 05/10/22 11:07 Pulse 55 L 05/10/22 11:07 Resp 14 05/10/22 11:07 BP 158/84 05/10/22 11:07 Pulse Ox 95 05/10/22 11:07 05/09/22 05/10/22 05/10/22 22:59 06:59 14:59 Intake Total 1000 / 1000 1061.25 / 1061.25 Output Total 460 / 460 975 / 975 Balance 540 / 540 86.25 / 86.25 Weight last 48 hrs Weight 97.432 kg Weight 97.522 kg Physical Exam Narrative: General: No acute distress, AO x3 HEENT: PERRLA, pupils bilaterally equal and reactive, pallors not present, NGT in place Chest: Normal vesicular breath sounds, no added sounds, equal good air entry bilaterally CVS: S1-S2 regular, no murmurs, no tachycardia, no gallops, no rubs Abdomen: Soft, non tender Neuro: No focal deficits, no facial deformity, AO x3, power 5/5 in all limbs Extremities: no edema, clubbing, cyanosis Data : 05/10/22 02:03 05/10/22 02:03 A&P Assessment and plan (1) Small bowel obstruction: Care discussed in detail with surgery. Appreciate Dr. Millan's recommendation. CT concerning for extensive constipation. Aggressive bowel regimen. Start on clear liquid diet. Remain NGT for now. Clamped. Discontinue by evening if patient is able to tolerate bowel regimen clear liquid diet. Continue with IV fluid. Zofran as needed Status: Acute (2) UGI bleed: With history of hiatal hernia and recent history of Tylenol and steroids. Continue with PPIs. Care discussed with surgery. Appreciate recommendations. Plan for EGD as an outpatient if patient has recurrent hematemesis or drop in hemoglobin. Monitor hemoglobin daily for now. Clear liquid diet as above. Status: Acute Plan # h/o asthma: continue inhaled budesonide-formeterol inh. Transaminitis: Alkaline phosphatase, bilirubin within normal limits. ALT more than AST. Could be secondary to extensive vomiting. Check hepatitis panel, HIV. Full code. Liquid diet. Protonix for PUD prophylaxis. SCDs for DVT prophylaxis. Attestations Medical Necessity Statement*: Requires further hospitalization for management of SBO, extensive constipation, upper GI bleed secondary to gastritis while patient receives aggressive bowel regimen and diet is gradually advanced. Time Spent in Patient Care: Greater than 35 minutes Coding Level of Care Code Acute Order Manager for [facility] Fwd Diagnoses Small bowel obstruction K56.609 UGI bleed K92.2
--- NOTE | 2022-05-10 15:48 | PC.NURSE ---
Addendum entered by Sonali Godinez RN 05/10/22 19:00: Patient resting in bed, agreeable to enema later if bowels do not clear up but is currently having liquid stool brown and clearing up. Original Note: Patient resting in bed, at bedside, VSS, AAOx4, NG tube removed after clamping trial per doctor note. Patient feels bloated but not nauseated and you know I just really want this out. Will you pull it now. I'm good. Patient is requesting that this nurse hold off on enema for a few hours. This nurse educated on the enema and patient noted he understood and is just requesting to hold for awhile. Room is clean and clutter free with call light in reach. WIll continue to monitor.
[2022-05-10 16:01] LABS: HIV 1 & 2 Antibody Non-Reactive (Non-Reactiv); HIV 1 & 2 Antigen Non-Reactive (Non-Reactiv)
[2022-05-10 16:08] LABS: Hepatitis A Antibody IgM Non-Reactive (Nonreactive); Hepatitis B Core AB, Total Non-Reactive (Nonreactive); Hepatitis B Surface AB 3.5 (11.5-1000); Hepatitis B Surface Antigen Non-Reactive (Nonreactive); Hepatitis C Virus Antibody Non-Reactive (Nonreactive)
[2022-05-11] MEDS: pantoprazole 40 mg SDV IVP (01:09)
[2022-05-11 05:08] VITALS: BP 153/95; PULSE 77; RESP 16; TEMP 36.9; O2SAT 95
--- NOTE | 2022-05-11 06:00 | XR_ITS ---
WS: [id number] Exam: XR abdomen min 2V [id number] Date/Time of Exam: 05/11/2022 5:26 AM Reason For Exam: sbo There is moderate gaseous dilatation of both large and small bowel loops suggesting adynamic ileus. N o pneumoperitoneum noted. No sign of organ enlargement. Numerous surgical clips and sutures in the ri ght abdomen. Moderate distention of urinary bladder. Partially visualized right total hip prosthesis. Degenerative changes and levoscoliosis of the lumbar spine. Signs of prior cholecystectomy. XR/XR abdomen min 2V [id number] IMPRESSION: 1. Findings suggest adynamic ileus. No acute abdominal finding noted at this t flora. Additional minor findings as above.
[2022-05-11 08:00] VITALS: BP 134/84; PULSE 64; RESP 16; TEMP 36.7; O2SAT 95
[2022-05-11 08:10] VITALS: PULSE 70; RESP 18; O2SAT 99
[2022-05-11 08:33] LABS: Basophils % 0.3 %; Eosinophils # 0.1 10^3/uL (0.0-0.8); Eosinophils % 2.1 %; Hematocrit 42.3 % (42.0-52.0); Hemoglobin 12.8 g/dL (11.7-16.6); Lymphocytes # 1.6 10^3/uL (0.8-4.8); Lymphocytes % 27.2 %; Mean Corpuscular HGB Conc 30.3 g/dL (30.0-36.0); Mean Corpuscular Hemoglobin 29.1 pg (28.0-34.0); Mean Corpuscular Volume 96.1 fl (80-94); Mean Platelet Volume 10.5 fL (7.4-10.4); Monocytes # 0.6 10^3/uL (0.2-0.9); Monocytes % 10.9 %; Neutrophils # 3.42 10^3/uL (1.8-7.7); Neutrophils % 59.3 %; Nucleated Red Blood Cells % 0 %; Platelet Count 163 10^3/cmm (130-400); Red Cell Distribution Width 13.9 % (12.1-15.1); White Blood Count 5.8 10^3/uL (4.0-10.0)
[2022-05-11 08:51] LABS: Alanine Aminotransferase 168 U/L (0-41); Albumin Level 3.4 g/dL (3.5-5.2); Alkaline Phosphatase 93 IU/L (40-130); Anion Gap 9.7 (5-19); Aspartate Amino Transferase 120 U/L (0-40); Blood Urea Nitrogen 8 mg/dL (8-23); Calcium 8.4 mg/dL (8.5-10.5); Carbon Dioxide 30 mmol/L (22-29); Chloride 106 mmol/L (98-107); Globulin 2.1 g/dL (1.3-4.6); Glomerular Filtration Rate 111.5 mL/min (90-130); Glucose 99 mg/dL (65-115); Osmolality Calculated 292 mOsm/kg (285-295); Potassium 3.7 mmol/L (3.5-5.1); Sodium 142 mmol/L (136-145); Total Bilirubin 0.9 mg/dL (0.15-1.2); Total Protein 5.5 g/dL (6.6-8.7)
[2022-05-11] MEDS: dextrose 5%-sod chloride 0.9% 1,000 ML 75 ML IV (10:17)
[2022-05-11 11:52] VITALS: BP 129/86; PULSE 64; RESP 16; TEMP 36.7; O2SAT 98
--- NOTE | 2022-05-11 12:50 | P.PN_ITS ---
Subjective Subjective: Patient feels a lot better today, no nausea or vomiting, tolerating full liquid diet, had multiple bowel movements. Still feels a bit distended Medications: Reviewed: Yes Vitals/I&O/Wt Last Vital Signs Temp 98.0 F 05/11/22 11:52 Pulse 64 05/11/22 11:52 Resp 16 05/11/22 11:52 BP 129/86 05/11/22 11:52 Pulse Ox 98 05/11/22 11:52 O2 Del Method 05/11/22 11:52 05/10/22 05/11/22 05/11/22 22:59 06:59 14:59 Intake Total 840 / 3021.25 1120 / 3021.25 293.75 / 293.75 Balance 840 / 6.25 1120 / 2045.25 293.75 / 293.75 Weight last 48 hrs Weight 214 lb 12.8 oz Weight 215 lb Physical Exam Narrative: Abdomen: Soft, mildly distended Data : 05/11/22 07:42 05/11/22 07:42 A&P Assessment and plan (1) UGI bleed: 71 year old male who presents with small bowel obstruction but also has coffee- ground emesis. His NG aspirate has been clear. Continue PPI therapy Status: Acute (2) Small bowel obstruction: 71-year-old male status post prior laparotomy who has been admitted in the past with small bowel obstruction which has been managed conservatively. CT abdomen and pelvis shows partial small bowel obstruction with significant constipation, resolved with laxatives and enema DC home today on a full liquid diet Follow-up as needed Status: Acute Attestations Medical Necessity Statement*: As per primary Coding Level of Care Code Acute Records Management Specialist for [facility] Fwd Diagnoses UGI bleed K92.2 Small bowel obstruction K56.609
--- NOTE | 2022-05-11 13:10 | P.DS_ITS ---
Discharge Providers Date of Admission: 05/09/22 22:19 Date of Discharge: May 11, 2022 Attending Provider at Admission: Halima Keith MD Attending Provider at Discharge: Lucian Lange MD Consults: Surgery: Dr. Millan Primary Care Provider: Landon Gilliland MD Diagnoses at Discharge Discharge Diagnosis (1) UGI bleed: Status: Acute (2) Small bowel obstruction: Status: Acute Reason for Visit Reason for Visit: Throwing up black stuff-sent by dr Pryor History: Rizwan Lobato is a 71 year old male with a past medical history of recurrent small bowel obstruction presenting today with chief complains of multiple episodes of vomiting that started yesterday.? Patient estimates he has had 8-10 episodes of vomiting.? Today afternoon his vomitus content changed from clear to black tarry which brought up the concern for GI bleeding and he presented into the emergency room after discussion with his primary care provider. He denies any bright red blood in vomitus.? Last bowel movement was yesterday.? He is currently passing flatus.? Has not noticed any bleeding per rectum. Reports epigastric pain. Has had poor po intake but able to keep jello and toast down. no diarrhea. No fever.? He has a history of multiple episodes of SBO/colonic obstruction in the past which have been managed conservatively.? Also has a history of transverse colectomy with end-to-end anastomosis several years ago which was reportedly a result of obstruction from severely impacted feces. 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 He undergoes regular upper and lower endoscopy and has never been known to have any malignancy or IBD.? Also reports a past history of Skaggs's esophagus diagnosed at [facility], reportedly improving on endoscopy 2 years ago. 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 LFTs noted to be deranged dating back to at least 2019. No known h/o cirrhosis or chronic hepatitis. Reports occasional beer intake, no binge drinking. Hospital Course Hospital Course Patient admitted to hospital for evaluation and management. On admission due to concerns for GI bleed NG tube was placed, patient was treated conservatively by keeping him n.p.o. and starting him home PPI. Surgery was consulted. Patient did not have any active bleeding through the NG tube and continue to have clear discharge. Eventually he was started on clear liquid diet and then he was able to tolerate without any active GI bleed NGT was removed. His hemoglobin remained stable during hospitalization. On admission he was found to be constipated on CT imaging for which he required aggressive bowel regimen. Patient responded well to the treatment. He has been discharged hemodynamically stable condition with advised to continue taking aggressive bowel regimen at home, continuing with full liquid diet for now and then advance gradually within next 2 to 3 days to a softer diet. He is to continue taking Protonix/PPI 2 times a day for next 2 weeks and then take it daily. Physical Exam Narrative: General: No acute distress, AO x3 HEENT: PERRLA, pupils bilaterally equal and reactive, pallors not present, NGT in place Chest: Normal vesicular breath sounds, no added sounds, equal good air entry bilaterally CVS: S1-S2 regular, no murmurs, no tachycardia, no gallops, no rubs Abdomen: Soft, non tender Neuro: No focal deficits, no facial deformity, AO x3, power 5/5 in all limbs Extremities: no edema, clubbing, cyanosis Discharge Data Studies Completed and Pending Completed Studies During Hospitalization Category Date Time Status CT abdomen pelvis w con* [id number] Urgent Cat Scan 05/09/22 19:45 Completed XR KUB portable [id number] Urgent Exams 05/09/22 21:47 Completed XR abdomen min 2V [id number] Routine Exams 05/11/22 06:00 Completed Radiology Impressions Abdomen/Pelvis CT 05/09/22 19:45 IMPRESSION: 1. Distal small bowel obstruction which may be partial. 2. Large volume of stool in the colon could indicate constipation. 3. Pelvic ascites. COMMENTS: Consistent with the [employer]'s Incidental Findings Committee white paper (J Am Shawna Radiol 2018): Any incidental renal lesion less than 1 cm or classified as too small to characterize, or any incidental cystic renal lesion characterized as simple-appearing, is likely benign. No follow-up imaging is recommended for these lesions per consensus recommendations based on imaging criteria. KUB X-Ray 05/09/22 21:47 IMPRESSION: Dilated small bowel, consistent with small-bowel obstruction. Abdomen X-Ray 05/11/22 06:00 IMPRESSION: 1. Findings suggest adynamic ileus. No acute abdominal finding noted at this time. Additional minor findings as above. Laboratory Results WBC 5.8 10^3/uL (4.0-10.0) 05/11/22 07:42 RBC 4.40 10^6/uL (4.1-5.3) 05/11/22 07:42 Hgb 12.8 g/dL (11.7-16.6) 05/11/22 07:42 Hct 42.3 % (42.0-52.0) 05/11/22 07:42 MCV 96.1 fl (80-94) H 05/11/22 07:42 MCH 29.1 pg (28.0-34.0) 05/11/22 07:42 MCHC 30.3 g/dL (30.0-36.0) 05/11/22 07:42 RDW 13.9 % (12.1-15.1) 05/11/22 07:42 Plt Count 163 10^3/cmm (130-400) 05/11/22 07:42 MPV 10.5 fL (7.4-10.4) H 05/11/22 07:42 Neut % (Auto) 59.3 % 05/11/22 07:42 Lymph % (Auto) 27.2 % 05/11/22 07:42 [place] % (Auto) 10.9 % 05/11/22 07:42 Eos % (Auto) 2.1 % 05/11/22 07:42 Baso % (Auto) 0.3 % 05/11/22 07:42 Neut # (Auto) 3.42 10^3/uL (1.8-7.7) 05/11/22 07:42 Lymph # (Auto) 1.6 10^3/uL (0.8-4.8) 05/11/22 07:42 [place] # (Auto) 0.6 10^3/uL (0.2-0.9) 05/11/22 07:42 Eos # (Auto) 0.1 10^3/uL (0.0-0.8) 05/11/22 07:42 Baso # (Auto) 0.0 10^3/uL (0.0-0.1) 05/11/22 07:42 Nucleated RBC % (auto) 0 % 05/11/22 07:42 Nucleated RBCs # 0.0 /100WBC 05/11/22 07:42 PT 13.80 SECONDS (12.1-14.9) 05/09/22 19:29 INR 1.03 (0.8-1.2) 05/09/22 19:29 Sodium 142 mmol/L (136-145) 05/11/22 07:42 Potassium 3.7 mmol/L (3.5-5.1) 05/11/22 07:42 Chloride 106 mmol/L (98-107) 05/11/22 07:42 Carbon Dioxide 30 mmol/L (22-29) H 05/11/22 07:42 Anion Gap 9.7 (5-19) 05/11/22 07:42 BUN 8 mg/dL (8-23) 05/11/22 07:42 Creatinine 0.7 mg/dL (0.7-1.2) 05/11/22 07:42 GFR Calculation 111.5 mL/min (90-130) 05/11/22 07:42 Glucose 99 mg/dL (65-115) 05/11/22 07:42 Calculated Osmolality 292 mOsm/kg (285-295) 05/11/22 07:42 Calcium 8.4 mg/dL (8.5-10.5) L 05/11/22 07:42 Total Bilirubin 0.9 mg/dL (0.15-1.2) 05/11/22 07:42 AST 120 U/L (0-40) H 05/11/22 07:42 ALT 168 U/L (0-41) H 05/11/22 07:42 Alkaline Phosphatase 93 IU/L (40-130) 05/11/22 07:42 Troponin T Baseline 26 ng/L (0-15) H 05/09/22 19:29 Troponin T 120 Minute 21.31 ng/L (0-15) H 05/09/22 21:16 Delta Troponin T -4.69 ABS# (0-10) L 05/09/22 21:16 Total Protein 5.5 g/dL (6.6-8.7) L 05/11/22 07:42 Albumin 3.4 g/dL (3.5-5.2) L 05/11/22 07:42 Globulin 2.1 g/dL (1.3-4.6) 07/27/22 07:42 Lipase 23 U/L (13-60) 05/09/22 19:29 Urine Color Yellow (Yellow) 05/09/22 21:50 Urine Appearance Clear (CLEAR) 05/09/22 21:50 Urine pH 7 (5-7) 05/09/22 21:50 Ur Specific [place] 1.005 (1.005-1.030) 05/09/22 21:50 Urine Protein Neg (Negative) 05/09/22 21:50 Urine Glucose (UA) Norm (Normal) 05/09/22 21:50 Urine Ketones Negative (Negative) 05/09/22 21:50 Urine Blood Neg (Negative) 05/09/22 21:50 Urine Nitrate Negative (Negative) 05/09/22 21:50 Urine Bilirubin Neg (Negative) 05/09/22 21:50 Urine Urobilinogen 4 mg/dL (Negative) H 05/09/22 21:50 Ur Leukocyte Esterase Negative (Negative) 05/09/22 21:50 Hepatitis A IgM Ab Non-reactive (Nonreactive) 05/10/22 15:11 Hep Bs Antigen Non-reactive (Nonreactive) 05/10/22 15:11 Hep Bs Antibody 3.5 (11.5-1000) L 05/10/22 15:11 Hep B Core Total Ab Non-reactive (Nonreactive) 05/10/22 15:11 Hepatitis C Antibody Non-reactive (Nonreactive) 05/10/22 15:11 HIV 1&2 Ab & HIV 1 Ag Non-reactive (Non-Reactiv) 05/10/22 15:11 HIV 1&2 Antibody Non-reactive (Non-Reactiv) 05/10/22 15:11 Vitals Last Vital Signs Temp 98.0 F 05/11/22 11:52 Pulse 64 05/11/22 11:52 Resp 16 05/11/22 11:52 BP 129/86 05/11/22 11:52 Pulse Ox 98 05/11/22 11:52 O2 Del Method 05/11/22 11:52 Discharge Plan Discharge Patient Disposition: Home Condition: Stable Prescriptions: New pantoprazole [Protonix] 40 mg tablet,delayed release (DR/EC) 40 mg PO BID 14 Days Qty: 28 0RF Continued fluticasone propionate [Allergy Relief (fluticasone)] 50 mcg/actuation spray,suspension 2 spray INTRANASAL DAILY Rx Instructions: administer into each nostril polyethylene glycol 3350 [Miralax] 17 gram powder in packet 17 g PO BID docusate sodium 100 mg capsule 100 mg PO BID albuterol sulfate 90 mcg/actuation HFA aerosol inhaler 2 puff inhalation Q6H PRN (Reason: shortness of breath or wheezing) 30 Days Qty: 8.5 4RF budesonide-formoterol [Symbicort] 80-4.5 mcg/actuation HFA aerosol inhaler 2 puff inhalation BID 30 Days Qty: 10.2 4RF Discontinued esomeprazole magnesium 20 mg capsule,delayed release(DR/EC) 20 mg PO BEDTIME Discharge Orders: Discharge Order (Routine); Ordered 05/11/22 Ordered By: Lucian Lange Referrals: Landon Gilliland MD [Primary Care Provider] - 2 weeks Discharge Diet: Advance as tolerated, GI Soft and Full LIquid Discharge Activity: Resume usual activity and Increase activity as tolerated Patient Instructions: Abdominal Pain (ED), Opioid Safety Activity Restrictions/Additional Instructions: Please take multiple small meals during the day. For now continue with full liquid diet for next 2 to 3 days and advance gradually to a soft diet. Please continue with aggressive bowel regimen as discussed in detail. Take Protonix 40 mg twice daily for next 2 weeks followed by 1 time daily afterwards. Discharge Attestations Time Spent in Discharge Care*: greater than 30 min Specific Discharge Activities: educating patient, educating and/or supporting family/caregiver, discussing with pcp/other providers, documenting/other paperwork and evaluating patient/reviewing data Status at Discharge: Cognitive status at discharge: cognitively intact , Behavioral status at discharge: cooperative , Functional status at discharge: independent ambulation , Overall status at discharge: patient is back to baseline Quality Metrics Clinical Quality Measures [ No reported AMI, CVA or VTE this stay] Coding Level of Care Code Acute Chg FW DC note Diagnoses UGI bleed K92.2 Small bowel obstruction K56.609
[2022-05-11 13:56] VITALS: BP 129/86; PULSE 64; RESP 16; TEMP 36.7; O2SAT 98
--- NOTE | 2022-05-11 14:19 | PC.NURSE ---
patient and his verbalized understanding of discharge instructions, home medications, and follow up appointments.
== END 2022-05-11 13:50 | disposition home or self-care (01) | DRG 378 ==
LOC: ER 21:48 → MEDSURG 22:31
PROVIDERS: Emergency Medicine; Admitting Provider Student in an Organized Health Care Education/Training Program; Emergency Provider Emergency Medicine; PCP Family Medicine; Visit Provider Student in an Organized Health Care Education/Training Program
DX: K92.2 Gastrointestinal hemorrhage, unspecified (principal); K56.0 Paralytic ileus; K56.600 Partial intestinal obstruction, unspecified as to cause; Z90.49 Acquired absence of other specified parts of digestive tract; K22.70 Barrett's esophagus without dysplasia; G89.29 Other chronic pain; M54.50 Low back pain, unspecified; K44.9 Diaphragmatic hernia without obstruction or gangrene; K21.9 Gastro-esophageal reflux disease without esophagitis; E78.00 Pure hypercholesterolemia, unspecified; Z87.891 Personal history of nicotine dependence; K59.00 Constipation, unspecified
CPT/HCPCS: 36415; 74018; 74019; 74177; 80053; 81003; 83690; 84484; 85025; 85610; 86705; 86706; 86709; 86803; 87340; 87806; 93005; 99285; C9113; J7030; Q9967

== ENCOUNTER → 2022-06-02 10:34 | Outpatient (BNVA) | payer MEDICARE, OTHER, SELFPAY | PROVIDERS: PCP Family Medicine; Visit Provider Internal Medicine Rheumatology | DX: M05.79 Rheumatoid arthritis with rheumatoid factor of multiple sites without organ or systems involvement (principal); Z79.899 Other long term (current) drug therapy; R74.01 Elevation of levels of liver transaminase levels; Z87.19 Personal history of other diseases of the digestive system; Z96.641 Presence of right artificial hip joint; Z96.651 Presence of right artificial knee joint; Z90.49 Acquired absence of other specified parts of digestive tract; Z11.1 Encounter for screening for respiratory tuberculosis | CPT/HCPCS: 36415; 80076; 82306; 83516; 85651; 86140; 86160; 86162; 86200; 86235; 86255; 86376; 86480; 99204 ==

== ENCOUNTER → 2022-11-08 11:39 | Outpatient (BNVA) | payer MEDICARE, OTHER, SELFPAY | PROVIDERS: PCP Family Medicine; Visit Provider Internal Medicine Rheumatology | DX: M05.79 Rheumatoid arthritis with rheumatoid factor of multiple sites without organ or systems involvement (principal); Z79.899 Other long term (current) drug therapy; Z96.659 Presence of unspecified artificial knee joint; Z96.641 Presence of right artificial hip joint | CPT/HCPCS: 99214 ==

== ENCOUNTER → 2022-11-14 09:41 | Outpatient (BNVA) | payer MEDICARE, OTHER, SELFPAY | PROVIDERS: PCP Family Medicine; Visit Provider Internal Medicine Pulmonary Disease | DX: J45.30 Mild persistent asthma, uncomplicated (principal); Z87.891 Personal history of nicotine dependence | CPT/HCPCS: 99214 ==

== ENCOUNTER 2022-11-16 18:35 | Inpatient (IN) | payer MEDICARE, OTHER, SELFPAY ==
[2022-11-16 18:40] VITALS: BP 119/71; PULSE 55; RESP 18; TEMP 36.9; O2SAT 95; BMI 27.6
--- NOTE | 2022-11-16 18:48 | CTR_ITS ---
PROCEDURE INFORMATION: Exam: CT Abdomen And Pelvis With Contrast Exam date and time: 11/16/2022 8:11 PM Age: 72 years old Clinical indication: Abdominal pain; Generalized; Prior surgery; Surgery type: Hernia repair. Bowel resection. Appy. Óscar. Patient HX: Diffuse abd pain with nausea. History of sbo. TECHNIQUE: Imaging protocol: Computed tomography of the abdomen and pelvis with contrast. Radiation optimization: All CT scans at this facility use at least one of these dose optimization techniques: automated exposure control; mA and/or kV adjustment per patient size (includes targeted exams where dose is matched to clinical indication); or iterative reconstruction. Contrast material: OMNI 350; Contrast volume: 100 ml; Contrast route: INTRAVENOUS (IV); Other protocol: This patient has received [address] and 0 known cardiac nuclear medicine studies in the 12 months prior to the current study. COMPARISON: CT abdomen pelvis w con* [id number] 05/09/2022 8:46 PM RADIATION DOSE METRICS: Total DLP (mGy-cm): 844.73 FINDINGS: Liver: Normal. No mass. Gallbladder and bile ducts: Cholecystectomy. No ductal dilation. Pancreas: Normal. No ductal dilation. Spleen: Normal. No splenomegaly. Adrenal glands: Normal. No mass. Kidneys and ureters: Left perirenal cysts. No hydronephrosis. Stomach and bowel: Sequela of prior bowel resection. Dilated fluid-filled loops of small bowel up to 4.8 cm within the mid and lower abdomen consistent with bowel obstruction. Transition point appears to be at the site of small bowel/colonic anastomosis. No signs of bowel ischemia/perforation. Appendix: Appendectomy. Intraperitoneal space: No free air. No significant fluid collection. Vasculature: No abdominal aortic aneurysm. Lymph nodes: No enlarged lymph nodes. Urinary bladder: Unremarkable as visualized. Reproductive: Unremarkable as visualized. Bones/joints: Right hip arthroplasty noted. No acute fracture. Soft tissues: Unremarkable. CT/CT abdomen pelvis w con* [id number] IMPRESSION: Small-bowel obstruction with the transition point appearing to be located at the site of small bowel/colonic anastomosis. No signs of bowel ischemia/perforation. COMMENTS: Consistent with the [place] [employer]'s Incidental Findings Committee white paper (J Am Shawna Radiol 2018): Any incidental renal lesion less than 1 cm or classified as too small to characterize, or any incidental cystic renal lesion characterized as simple-appearing, is likely benign. No follow-up imaging is recommended for these lesions per consensus recommendations based on imaging criteria. Findings were discussed with MINERVA MOSS at 11/16/2022 8:52 PM VIDEO JOURNALIST.
--- NOTE | 2022-11-16 18:57 | W.ED.ABDPA2 ---
HPI - Abdominal Pain General: Chief Complaint: Abdominal Pain Stated Complaint: abd pain, history of bowel obstruction Time Seen by Provider: 11/16/22 18:46 Source: patient and family Mode of arrival: ambulatory Limitations: no limitations History of Present Illness: This patient comes to our emergency department by private vehicle accompanied by his spouse. He is concerned about progressive abdominal pain that is worsened over the last 2 days or thereabouts. He states that has had a history of bowel resection due to a bowel obstruction in the past and it feels similar to that pain. He has had no fevers or chills but has vomited today. He has had 2 good bowel movements yesterday but none since earlier today. He has not had any blood in his stools. He takes MiraLAX on a daily basis for bowel regimen care. He does not take any opiates or other pain medicines. He has had a bowel resection in 2011 for bowel obstruction but no prior surgeries to that episode. He has had multiple hernia repairs since his bowel resection. No other illness at home. No bad food exposure no recent antibiotics, no travel etc. MD elicited complaint: abdominal pain Location: Diffuse Migration to: no migration Relieving factors: nothing Associated Symptoms: Denies chills, dysuria and fever(s) Review of Systems Const: Denies: fever(s) or chills ENMT: Denies: throat pain, odynophagia, nasal discharge or nasal congestion Card: Denies: chest pain, palpitations, irregular heart rhythm or edema Resp: Denies: dyspnea, productive cough or non-productive cough GI: Reports: abdominal pain : Denies: flank pain, difficulty urinating, dysuria or urinary frequency Musc: Denies: neck pain, back pain, extremity pain or extremity swelling Skin/Breast: Denies: rash Neuro: Denies: headache(s), numbness in extremities or weakness in extremities PFSH ED PFSH: Medical History Aftercare following right hip joint replacement surgery Atopic dermatitis Barretts esophagus Chronic low back pain Elevated liver enzymes Hiatal hernia with GERD High risk medication use Hypercholesterolemia Hyperglycemia Seropositive rheumatoid arthritis of multiple sites Testosterone deficiency Surgical History History of appendectomy History of bowel resection History of hernia repair Status post arthroscopy of left shoulder Status post total hip replacement, right Total knee replacement status Family History Other Cancer Denies family history of Anesthesia complication Bleeding disorder Social History Smoking and tobacco status: former smoker Quit status (tobacco): has quit using tobacco Year quit tobacco: 1991 Former quit date comment: Hx of 1 PPD x 21 Years Second hand smoke exposure: No Smoking risk assessment/counseling performed?: No Alcohol intake: current Alcohol intake frequency: few times a month Alcohol type: beer Counseling given: No Counseling given: No Lives independently: Yes Household members: spouse Marital status: Current occupational status: retired 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 He answers questions appropriately in a goal-directed fashion. Const: COMMON NORMALS: no acute distress, average body habitus, patient oriented x3, healthy appearing and alert GENERAL APPEARANCE: cooperative and well kempt HENMT: COMMON NORMALS: normocephalic, Normal nasal mucous membranes and turbinates present, moist oral mucous membranes and oropharynx normal HEAD & SCALP: normocephalic NOSE: Normal nasal mucous membranes and turbinates present Eye: COMMON NORMALS: Equal, round and reactive pupils present, EOMs intact bilaterally and conjunctivae normal CONJUNCTIVA: Yes conjunctivae normal PUPIL: Yes Equal, round and reactive pupils present Neck/C-Spine: COMMON NORMALS: full ROM, no lymphadenopathy, no JVD and Thyroid normal THYROID: Thyroid normal Chest: COMMONS NORMALS: normal inspection of the chest and normal palpation of entire chest wall Resp: COMMON NORMALS: normal respiratory effort, No retractions, No use of accessory muscles and clear to auscultation bilaterally EFFORT & INSPECTION: Yes able to speak in complete sentences AUSCULTATION: clear to auscultation bilaterally Cardio: COMMON NORMALS: no JVD, regular rate, regular rhythm, No murmurs present (Cardio) and Peripheral pulses 2+ throughout RATE: regular rate RHYTHM: regular rhythm PERIPHERAL PULSES: Peripheral pulses 2+ throughout GI: COMMON NORMALS: Soft to palpation, No hepatosplenomegaly present and no masses AUSCULTATION: Yes Absent bowel sounds PALPATION: Yes Soft to palpation and Yes No hepatosplenomegaly present : COMMON NORMALS: Yes no CVA tenderness BLADDER/KIDNEY EXAM: Yes no CVA tenderness Back/Pelvis: COMMON NORMALS: no CVA tenderness, thoracic and lumbar spine normal to inspection, no thoracic nor lumbar tenderness and thoraco-lumbar ROM normal Extremity: COMMON NORMALS: normal to inspection, full ROM, capillary refill normal, no calf tenderness and no pedal edema Neuro: COMMON NORMALS: patient oriented x3, moves all extremities and no focal motor deficits SENSORIUM/ORIENTATION: Yes alert CRANIAL NERVES: Yes CN normal except as noted Psych: COMMON NORMALS: mental status grossly normal APPEARANCE: Yes well kempt Skin: COMMON NORMALS: no rashes or lesions noted, no wounds and turgor normal GENERAL SKIN EXAM: no rashes or lesions noted and turgor normal Course Reevaluation(s): Reevaluation #1: Patient remains comfortable. No emesis. Discussed current findings and recommendations with both he and spouse. Time: 21:13 Consultations: Consultation #1: Discussed with Dr. King on-call surgeon. He will consult. Time: 21:13 Consultation #2: D/w Dr Navarro who agreed to admission Time: 21:26 Vital Signs: Vital signs: Vital Signs Temperature 98.4 F 11/16/22 18:40 Pulse Rate 68 11/16/22 19:31 Respiratory Rate 14 11/16/22 19:31 Blood Pressure 140/94 11/16/22 19:31 Pulse Oximetry 96 11/16/22 19:31 Oxygen Delivery Me thod 11/16/22 18:40 MDM - Abdominal Pain Medical Decision Making This patient with a known history of prior small bowel obstruction requiring resection previously as well as subsequent SBO's that did not require surgical intervention presents with a 2-day history of progressive symptoms similar to that which she is had with prior SBO's. No history of fevers, 1 episode of vomiting. His evaluation here he revealed a soft nonsurgical abdomen. Work-up was undertaken to ensure to rule out small bowel obstruction versus other potential etiologies of abdominal pain. Work-up to include imaging revealed small bowel obstruction. Also revealed a serendipitous finding of elevated total bilirubin which is not thought to be of significance given his CT scan did not show his any evidence of biliary tract disease, his alkaline phosphatase was normal and no history of biliary tract disease. He also had a slight bump in his high-sensitivity troponin with some nonspecific ST-T wave changes without any ongoing symptoms. Unlikely to have ACS at this juncture however trending his troponins and EKGs will be important. He is currently chest pain-free. Consultations were obtained from general surgery as well as hospitalist. Currently being admitted in stable condition. Medical Records I reviewed the patient's medical records. Lab Data I reviewed the patient's lab results. 11/16/22 19:17 11/16/22 19:17 Labs/Radiology: Radiology Impressions Abdomen/Pelvis CT 11/16/22 18:48 IMPRESSION: Small-bowel obstruction with the transition point appearing to be located at the site of small bowel/colonic anastomosis. No signs of bowel ischemia/perforation. COMMENTS: Consistent with the [place] [employer]'s Incidental Findings Committee white paper (J Am Shawna Radiol 2018): Any incidental renal lesion less than 1 cm or classified as too small to characterize, or any incidental cystic renal lesion characterized as simple-appearing, is likely benign. No follow-up imaging is recommended for these lesions per consensus recommendations based on imaging criteria. Findings were discussed with MINERVA CHILDERS at 11/16/2022 8:52 PM HAND WOOD SANDER. Laboratory Results WBC 7.1 10^3/uL (4.0-10.0) 11/16/22 19:17 RBC 5.42 10^6/uL (4.1-5.3) H 11/16/22 19:17 Hgb 16.1 g/dL (11.7-16.6) 11/16/22 19:17 Hct 51.5 % (42.0-52.0) 11/16/22 19:17 MCV 95.0 fl (80-94) H 11/16/22 19:17 MCH 29.7 pg (28.0-34.0) 11/16/22 19:17 MCHC 31.3 g/dL (30.0-36.0) 11/16/22 19:17 RDW 13.4 % (12.1-15.1) 11/16/22 19:17 Plt Count 152 10^3/cmm (130-400) 11/16/22 19:17 MPV 10.4 fL (7.4-10.4) 11/16/22 19:17 Neut % (Auto) 65.2 % 11/16/22 19:17 Lymph % (Auto) 28.0 % 11/16/22 19:17 [place] % (Auto) 6.3 % 11/16/22 19:17 Eos % (Auto) 0.3 % 11/16/22 19:17 Baso % (Auto) 0.1 % 11/16/22 19:17 Neut # (Auto) 4.63 10^3/uL (1.8-7.7) 11/16/22 19:17 Lymph # (Auto) 2.0 10^3/uL (0.8-4.8) 11/16/22 19:17 [place] # (Auto) 0.5 10^3/uL (0.2-0.9) 11/16/22 19:17 Eos # (Auto) 0.0 10^3/uL (0.0-0.8) 11/16/22 19:17 Baso # (Auto) 0.0 10^3/uL (0.0-0.1) 11/16/22 19:17 Nucleated RBC % (auto) 0 % 11/16/22 19:17 Nucleated RBCs # 0.0 /100WBC 11/16/22 19:17 Sodium 139 mmol/L (136-145) 11/16/22 19:17 Potassium 4.5 mmol/L (3.5-5.1) 11/16/22 19:17 Chloride 100 mmol/L (98-107) 11/16/22 19:17 Carbon Dioxide 28 mmol/L (22-29) 11/16/22 19:17 Anion Gap 15.5 (5-19) 11/16/22 19:17 BUN 16 mg/dL (8-23) 11/16/22 19:17 Creatinine 1.1 mg/dL (0.7-1.2) 11/16/22 19:17 GFR Calculation Not Reportable 11/16/22 19:17 Glucose 127 mg/dL (65-115) H 11/16/22 19:17 Calculated Osmolality 291 mOsm/kg (285-295) 11/16/22 19:17 Calcium 9.7 mg/dL (8.5-10.5) 11/16/22 19:17 Total Bilirubin 2.3 mg/dL (0.15-1.2) H 11/16/22 19:17 AST 48 U/L (0-40) H 11/16/22 19:17 ALT 30 U/L (0-41) 11/16/22 19:17 Alkaline Phosphatase 87 U/L (40-130) 11/16/22 19:17 Troponin T Baseline 19 ng/L (0-15) H 11/16/22 19:17 Total Protein 7.0 g/dL (6.6-8.7) 11/16/22 19:17 Albumin 4.4 g/dL (3.5-5.2) 11/16/22 19:17 Globulin 2.6 g/dL (1.3-4.6) 11/16/22 19:17 Lipase 42 U/L (13-60) 11/16/22 19:17 EKG Data EKG 1: I personally reviewed and interpreted this EKG as follows: Interpretation: Contemporaneous review of EKG reveals a sinus rhythm of 89 bpm. Normal NV interval, QRS duration, corrected QT T interval. Normal axis. Nonspecific ST-T wave changes noted in lateral precordial leads V4 V5. Discharge Plan Discharge Patient Disposition: Admitted As Inpatient Clinical Impression: Small bowel obstruction, Elevated troponin Condition: Stable Coding Level of Care Code ED Parts Chaser for Chg Fwd Exam Comprehensive
--- NOTE | 2022-11-16 19:01 | ECG_ITS ---
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 Measurements Intervals [place] Rate: 89 P: 81 [place]: 180 QRS: 70 QRSD: 93 T: 93 QT: 368 QTc: 449 Interpretive Statements SINUS RHYTHM WITH FREQUENT VENTRICULAR PREMATURE COMPLEXES ST DEVIATION AND MODERATE T-WAVE ABNORMALITY, CONSIDER LATERAL ISCHEMIA [-0.1+ mV T-WAVE IN I/aVL/V5/V6] Compared to ECG 05/09/2022 20:12:49 Ventricular premature complex(es) now present Possible ischemia now present T-wave abnormality still present Electronically Signed On 11-17-2022 8:08:56 AUGER SUPERVISOR by Alfred Fay M.D. [id number]
[2022-11-16] MEDS: sodium chloride 0.9% 500 ML IV (19:19)
[2022-11-16 19:27] LABS: Basophils % 0.1 %; Eosinophils % 0.3 %; Hematocrit 51.5 % (42.0-52.0); Hemoglobin 16.1 g/dL (11.7-16.6); Mean Corpuscular HGB Conc 31.3 g/dL (30.0-36.0); Mean Corpuscular Hemoglobin 29.7 pg (28.0-34.0); Mean Platelet Volume 10.4 fL (7.4-10.4); Monocytes # 0.5 10^3/uL (0.2-0.9); Monocytes % 6.3 %; Neutrophils # 4.63 10^3/uL (1.8-7.7); Neutrophils % 65.2 %; Nucleated Red Blood Cells % 0 %; Platelet Count 152 10^3/cmm (130-400); Red Blood Count 5.42 10^6/uL (4.1-5.3); Red Cell Distribution Width 13.4 % (12.1-15.1); White Blood Count 7.1 10^3/uL (4.0-10.0)
[2022-11-16 19:31] VITALS: BP 140/94; PULSE 68; RESP 14; O2SAT 96
[2022-11-16 19:46] LABS: Alanine Aminotransferase 30 U/L (0-41); Albumin Level 4.4 g/dL (3.5-5.2); Alkaline Phosphatase 87 U/L (40-130); Anion Gap 15.5 (5-19); Aspartate Amino Transferase 48 U/L (0-40); Blood Urea Nitrogen 16 mg/dL (8-23); Calcium 9.7 mg/dL (8.5-10.5); Carbon Dioxide 28 mmol/L (22-29); Chloride 100 mmol/L (98-107); Globulin 2.6 g/dL (1.3-4.6); Glucose 127 mg/dL (65-115); Lipase 42 U/L (13-60); Osmolality Calculated 291 mOsm/kg (285-295); Potassium 4.5 mmol/L (3.5-5.1); Sodium 139 mmol/L (136-145); Total Bilirubin 2.3 mg/dL (0.15-1.2)
[2022-11-16] MEDS: iohexol 350 mg/mL 500 mL Btl (per mL) IV (20:17)
[2022-11-16 20:43] LABS: Troponin(5th) Baseline 19 ng/L (0-15)
[2022-11-16] MEDS: lactated ringers 1,000 ML 125 ML IV (21:46)
[2022-11-16 21:49] VITALS: BP 147/96; PULSE 66; RESP 15; O2SAT 96
--- NOTE | 2022-11-16 21:59 | P.HP_ITS ---
Providers/Chief Complaint Admitting Physician: Rm Navarro MD Primary Care Provider: Landon Gilliland MD Chief Complaint: abd pain, history of bowel obstruction History of Present Illness Rizwan Lobato is a 72 year old male with multiple history of abdominal surgeries, recurrent bowel obstruction presented with chief complaint abdominal pain and 2 episodes of emesis. Patient stating that his symptoms started yesterday with abdominal pain associate with dry heaves and one episode of vomiting. After vomiting his abdominal pain subsided he felt better however today he was feeling very fatigued and lethargic he was not able to eat anything today that prompted his visit to the ER. Patient is stating that his last bowel movement was yesterday. No signs of infection, patient is hemodynamic stable, patient is reluctant to get NG tube, CT abdomen pelvis consistent with small bowel obstruction He has been started on D5 LR maintenance rate Abdomen is soft, general surgery has been consulted Review of Systems Const: Denies: fever(s) Eyes: Denies: change in vision ENMT: Denies: throat pain Card: Denies: chest pain Resp: Denies: dyspnea GI: Reports: abdominal pain, nausea and vomiting : Denies: flank pain or urinary dribbling Musc: Denies: neck pain Skin/Breast: Denies: rash Neuro: Denies: headache(s) Psych: Reports: anxiety Endo: Denies: polyuria Luis A/Lymph: Denies: easy bruising All/Imm: Denies: urticaria Medications/Allergies Home Medications Medication Instructions Recorded Confirmed Last Taken Type fluticasone propionate 50 2 spray intranasal DAILY 03/13/20 11/14/22 Unknown History mcg/actuation nasal spray,suspension (Allergy Relief (fluticasone)) albuterol sulfate 90 mcg/actuation 2 puff inhalation Q6H PRN 08/06/21 11/14/22 Unknown Rx aerosol inhaler shortness of breath or wheezing 30 days #8.5 grams docusate sodium 100 mg capsule 100 mg PO BID 08/06/21 11/14/22 01/28/22 History polyethylene glycol 3350 17 gram 17 g PO BID 08/06/21 11/14/22 01/28/22 History oral powder packet (Miralax) budesonide-formoterol HFA 80 2 puff inhalation BID 30 days 04/20/22 11/14/22 Unknown Rx mcg-4.5 mcg/actuation aerosol #10.2 grams inhaler (Symbicort) esomeprazole magnesium 20 mg 20 mg PO DAILY 06/02/22 11/14/22 Unknown History capsule,delayed release zinc 50 mg tablet 50 mg PO DAILY 06/02/22 11/14/22 Unknown History adalimumab 40 mg/0.8 mL 40 mg (0.8 mL) SUBCUT Q14D #2 ea 11/08/22 11/14/22 Unknown Rx subcutaneous pen kit (Humira Pen) prednisone 10 mg tablet 10 mg PO DAILY PRN for flares #30 11/08/22 11/14/22 Unknown Rx tabs Allergies Allergy/AdvReac Type Severity Reaction Status Date / Time hydromorphone [From Dilaudid] AdvReac Severe ADR/ALGY-Hy Verified 11/16/22 18:44 potension PFSH Acute PFSH: Medical History Aftercare following right hip joint replacement surgery Atopic dermatitis Barretts esophagus Chronic low back pain Elevated liver enzymes Hiatal hernia with GERD High risk medication use Hypercholesterolemia Hyperglycemia Seropositive rheumatoid arthritis of multiple sites Testosterone deficiency Surgical History History of appendectomy History of bowel resection History of hernia repair Status post arthroscopy of left shoulder Status post total hip replacement, right Total knee replacement status Family History Other Cancer Denies family history of Anesthesia complication Bleeding disorder Social History Smoking and tobacco status: former smoker Quit status (tobacco): has quit using tobacco Year quit tobacco: 1991 Former quit date comment: Hx of 1 PPD x 21 Years Second hand smoke exposure: No Smoking risk assessment/counseling performed?: No Alcohol intake: current Alcohol intake frequency: few times a month Alcohol type: beer Counseling given: No Counseling given: No Lives independently: Yes Household members: spouse Marital status: Current occupational status: retired 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 History of recent travel: No Current gender identity: Male Vitals/I&O/Wt Last Vital Signs Temp 98.4 F 11/16/22 18:40 Pulse 66 11/16/22 21:49 Resp 15 11/16/22 21:49 BP 147/96 11/16/22 21:49 Pulse Ox 96 11/16/22 21:49 O2 Del Method 11/16/22 21:49 11/16/22 11/16/22 11/16/22 06:59 14:59 22:59 Intake Total 500 / 500 Balance 500 / 500 Weight last 48 hrs Weight 97.522 kg Physical Exam Narrative: Sluggish bowel sounds Patient is dehydrated Abdomen soft, slightly tender on deep palpation epigastric region otherwise abdomen is benign Awake and alert Appears stated age Pleasant and cooperative Comfortable laying supine in his bed Doing well on room air Dry mucous membranes Data 11/16/22 19:17 11/16/22 19:17 A&P Assessment and plan (1) Small bowel obstruction: (2) Seropositive rheumatoid arthritis of multiple sites: (3) Vomiting: Plan Dehydration related to vomiting and not been able to eat Small bowel structure Conservative management Patient is not experiencing any active pain or vomiting She is reluctant to allow us to place NG tube I did tell him that in case of any worsening of pain or vomiting we should go ah ead and place NG tube, he is agreeable Start D5 LR Morphine for pain management Currently abdominal pain 3/10 Sluggish bowel sounds abdomen is benign We will follow-up with general surgery recommendations in the morning N.p.o. Full code DVT prophylaxis on board Attestations Medical Necessity Statement*: Anticipating stay to cross more than 2 midnights for SBO management Time Spent in Patient Care: 40 Coding Level of Care Code Acute Code for Chg Fwd Diagnoses Small bowel obstruction K56.609 Seropositive rheumatoid arthritis of multiple sites M05.79 Vomiting R11.10
[2022-11-16 22:01] LABS: Troponin 5 2HR 17.25 ng/L (0-15)
[2022-11-16 22:05] LABS: Troponin 5 2HR Delta -1.75 ABS# (0-10)
[2022-11-16] MEDS: enoxaparin 40 mg/0.4 mL Syringe SUBCUT (23:05)
[2022-11-16 23:28] VITALS: RESP 17
[2022-11-16] MEDS: morphine 4 mg/mL SDV 1 mL 2 MG IVP (23:28)
[2022-11-16] MEDS: dextrose 5%-lactated ringers 1,000 ML 30 ML IV (23:28)
[2022-11-16 23:30] VITALS: BP 155/108; PULSE 68; RESP 18; TEMP 36.6; O2SAT 97
[2022-11-17] VITALS (7 sets, daily range): BP systolic 120–144; BP diastolic 69–89; PULSE 52–89; RESP 16–19; TEMP 36.5–36.9; O2SAT 90–100
[2022-11-17 00:19] LABS: Vitamin B12 348 pg/mL (232-1245)
--- NOTE | 2022-11-17 01:47 | ECG_ITS ---
[facility] Test Date: 2022-11-17 Pat Name: Rizwan Lobato Department: Room: 270 Gender: Male Church Worker: : 1950 Requested By: Raimundo Childers Order Number: [id number] Adolfo MD: Cristiane Blanchard M.D. Measurements Intervals [place] Rate: 85 P: 80 [place]: 175 QRS: 56 QRSD: 97 T: 266 QT: 359 QTc: 428 Interpretive Statements SINUS RHYTHM WITH FREQUENT VENTRICULAR PREMATURE COMPLEXES ST DEVIATION AND MODERATE T-WAVE ABNORMALITY, CONSIDER LATERAL ISCHEMIA [-0.1+ mV T-WAVE IN I/aVL/V5/V6] ST DEVIATION AND MODERATE T-WAVE ABNORMALITY, CONSIDER INFERIOR ISCHEMIA [-0.1+ mV T-WAVE IN II/aVF] Compared to ECG 11/16/2022 19:01:03 No significant changes Electronically Signed On 11-17-2022 8:39:54 PATIENT PORTAL REPRESENTATIVE by Cristiane Blanchard M.D. [id number]
[2022-11-17 02:59] LABS: Basophils % 0.2 %; Eosinophils % 0.1 %; Hematocrit 45.2 % (42.0-52.0); Hemoglobin 14.1 g/dL (11.7-16.6); Lymphocytes # 2.4 10^3/uL (0.8-4.8); Lymphocytes % 30.1 %; Mean Corpuscular HGB Conc 31.2 g/dL (30.0-36.0); Mean Corpuscular Hemoglobin 29.9 pg (28.0-34.0); Mean Corpuscular Volume 95.8 fl (80-94); Mean Platelet Volume 11.2 fL (7.4-10.4); Monocytes # 0.8 10^3/uL (0.2-0.9); Monocytes % 9.7 %; Neutrophils # 4.79 10^3/uL (1.8-7.7); Neutrophils % 59.8 %; Nucleated Red Blood Cells % 0 %; Platelet Count 119 10^3/cmm (130-400); Red Blood Count 4.72 10^6/uL (4.1-5.3); Red Cell Distribution Width 13.4 % (12.1-15.1)
[2022-11-17 03:20] LABS: Troponin 5 6HR 17.07 ng/L (0-15)
[2022-11-17 03:24] LABS: Anion Gap 17.5 (5-19); Blood Urea Nitrogen 15 mg/dL (8-23); Calcium 8.7 mg/dL (8.5-10.5); Carbon Dioxide 22 mmol/L (22-29); Chloride 104 mmol/L (98-107); Glucose 120 mg/dL (65-115); Magnesium 1.8 mg/dL (1.7-2.3); Osmolality Calculated 290 mOsm/kg (285-295); Phosphorus 3.4 mg/dL (2.5-4.5); Potassium 4.5 mmol/L (3.5-5.1); Sodium 139 mmol/L (136-145)
[2022-11-17 03:35] LABS: Troponin 5 6HR Delta -1.93 ng/L (0-12)
--- NOTE | 2022-11-17 04:53 | PC.NURSE ---
patient resting quietly, morphine administered once this shift, patient states after i got the morphine earlier, i have not had any abdominal pain, i feel good at bedside.
--- NOTE | 2022-11-17 07:00 | XR_ITS ---
WS: [id number] KUB, AP view, 11/17/2022 Clinical Data: sbo Comparison: KUB, 05/11/2022, CT abdomen pelvis, 11/16/2022 Findings: No abnormal intraabdominal masses or calcifications are seen. There is a large amount of air in the s mall bowel and the colon. There is contrast material in the bladder from a CT abdomen pelvis done yes terday. 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 There is a right hip arthro plasty. Monitor leads are on the abdominal wall. XR/XR KUB portable [id number] Impression: Generalized ileus unchanged.
--- NOTE | 2022-11-17 09:50 | PM.CONSULT ---
Providers/Reason For Consult Consulting Physician/Specialty*: Hospitalist Reason for Consult*: Possible bowel obstruction Attending Physician: Paul Mohamud MD Primary Care Provider: Landon Gilliland MD History of Present Illness History of Present Illness Rizwan Lobato is a 72 year old male who has a history of small bowel obstruction. The patient had multiple admissions with conservative therapy. The patient has had an operation in the past for a small bowel obstruction. The patient underwent a CT scan of his abdomen and pelvis upon presentation to the emergency room. His CT scan appeared to show a narrowing of a small bowel around his anastomosis. The patient presented with abdominal pain, nausea and vomiting. The patient has had no diarrhea or constipation. The patient refused an NG tube. Over the last 12 to 18 hours the patient has gotten progressively better. The patient denies abdominal pain at this time. The patient stated that he has had some flatus as well as 2 bowel movements. The patient states that his bowel movements have not been large. Review of Systems General: Reports: 10 or more systems reviewed and unremarkable except in HPI and below Medications/Allergies Home Medications Medication Instructions Recorded Confirmed Last Taken Type fluticasone propionate 50 2 spray intranasal DAILY 03/13/20 11/17/22 Unknown History mcg/actuation nasal spray,suspension (Allergy Relief (fluticasone)) albuterol sulfate 90 mcg/actuation 2 puff inhalation Q6H PRN 08/06/21 11/17/22 Unknown Rx aerosol inhaler shortness of breath or wheezing 30 days #8.5 grams docusate sodium 100 mg capsule 100 mg PO BID 08/06/21 11/17/22 01/28/22 History polyethylene glycol 3350 17 gram 17 g PO BID 08/06/21 11/17/22 01/28/22 History oral powder packet (Miralax) budesonide-formoterol HFA 80 2 puff inhalation BID 30 days 04/20/22 11/17/22 Unknown Rx mcg-4.5 mcg/actuation aerosol #10.2 grams inhaler (Symbicort) esomeprazole magnesium 20 mg 20 mg PO DAILY 06/02/22 11/17/22 Unknown History capsule,delayed release adalimumab 40 mg/0.8 mL 40 mg (0.8 mL) SUBCUT Q14D #2 ea 11/08/22 11/17/22 Unknown Rx subcutaneous pen kit (Humira Pen) prednisone 10 mg tablet 10 mg PO DAILY PRN for flares #30 11/08/22 11/17/22 Unknown Rx tabs Allergies Allergy/AdvReac Type Severity Reaction Status Date / Time hydromorphone [From Dilaudid] AdvReac Severe ADR/ALGY-Hy Verified 11/16/22 18:44 potension Current Medications Generic Name Dose Route Start Last Admin Trade Name Freq PRN Reason Stop Dose Admin Enoxaparin Sodium 40 mg 11/16/22 22:21 11/16/22 23:05 Enoxaparin 40 Mg/0.4 Ml Syringe SUBCUT 40 mg Q24H DANK Administration Dextrose/Lactated Ringer's 1,000 mls @ 30 mls/hr 11/16/22 22:21 11/16/22 23:28 Dextrose 5%-Lactated Ringers IV 30 mls/hr .Q24H DANK Administration Morphine Sulfate 2 mg 11/16/22 23:02 11/16/22 23:28 Morphine 4 Mg/Ml Sdv 1 Ml IVP 2 mg Q4H PRN Administration SEVERE PAIN PFSH Acute PFSH: Medical History Aftercare following right hip joint replacement surgery Atopic dermatitis Barretts esophagus Chronic low back pain Elevated liver enzymes Hiatal hernia with GERD High risk medication use Hypercholesterolemia Hyperglycemia Seropositive rheumatoid arthritis of multiple sites Testosterone deficiency Surgical History History of appendectomy History of bowel resection History of hernia repair Status post arthroscopy of left shoulder Status post total hip replacement, right Total knee replacement status Family History Other Cancer Denies family history of Anesthesia complication Bleeding disorder Social History Smoking and tobacco status: former smoker Quit status (tobacco): has quit using tobacco Year quit tobacco: 1991 Former quit date comment: Hx of 1 PPD x 21 Years Second hand smoke exposure: No Smoking risk assessment/counseling performed?: No Alcohol intake: current Alcohol intake frequency: few times a month Alcohol type: beer Counseling given: No Counseling given: No Lives independently: Yes Household members: spouse Marital status: Current occupational status: retired 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 History of recent travel: No Current gender identity: Male Vitals/I&O/Wt Last Vital Signs Temp 98.5 F 11/17/22 07:23 Pulse 89 11/17/22 08:00 Resp 16 11/17/22 08:00 BP 125/89 11/17/22 07:23 Pulse Ox 96 11/17/22 08:00 O2 Del Method 11/17/22 08:00 11/16/22 11/17/22 11/17/22 22:59 06:59 14:59 Intake Total 500 / 500 1000 / 1000 Output Total 450 / 450 Balance 500 / 500 -450 / 50 1000 / 1000 Weight last 48 hrs Weight 215 lb Physical Exam Narrative: General: No acute distress HEENT is no cephalic atraumatic, pupils equal round reactive to light, oral and nasal passages clear Neck: Free mental motion and nontender. The patient's trachea is midline. I do not appreciate any adenopathy. The patient's thyroid is normal Lungs: Clear to auscultation and percussion Heart: Regular rate and rhythm without murmurs. There is no S3 or S4. There is no rubs clicks or JVD noted. Abdomen: Soft, nondistended, nontender to palpation. There is no hepatosplenomegaly. The patient has a well-healed midline scar. The patient has normal active bowel sounds. I do not appreciate any rushes or tinkles. There are no hernias that I can appreciate. Pelvis: Stable to both AP and medial compression Extremities: Is no obvious deformities or point tenderness suggestive of fracture. The patient has good capillary refill in both his hands and feet. There is no clubbing cyanosis or edema. Neurologic: The patient is awake, alert, oriented x3. The patient's Andreas Coma Scale is 15. The patient moves all 4 extremities without difficulty. The patient sensation is intact to light touch throughout. Data 11/17/22 02:30 11/17/22 02:30 Attestation for Other Data: I personally reviewed and interpreted the following: Other data: CT scan of the abdomen and pelvis A&P Assessment and plan (1) Small bowel obstruction: Plan Partial small bowel obstruction: This patient appears to be resolving his small bowel obstruction. Would like to have dietary come by and speak with the patient about a low residual diet. We will advance the patient to a clear liquid diet. We will advance the patient as tolerated. I do not believe this patient requires surgical intervention at this time. We will continue to follow this patient with you. Coding Level of Care Code 26333 Medical Decision Making High Complexity Diagnoses Small bowel obstruction K56.609
[2022-11-17] MEDS: pantoprazole 40 mg SDV IVP ×2 (10:42→17:26)
--- NOTE | 2022-11-17 18:19 | PM.PN ---
Subjective Subjective: Patient has currently denied nausea vomiting passing gas, had 2 bowel movements, tolerated clear liquid diet. Medications: Medication Review Details: Generic Name Dose Route Start Last Admin Trade Name Freq PRN Reason Stop Dose Admin Enoxaparin Sodium 40 mg 11/16/22 22:21 11/16/22 23:05 Enoxaparin 40 Mg /0.4 Ml Syringe SUBCUT 40 mg Q24H DANK Administration Dextrose/Lactated Ringer's 1,000 mls @ 30 ml s/hr 11/16/22 22:21 11/16/22 23:28 Dextrose 5%-Lact ated Ringers IV 30 mls/hr .Q24H DANK Administration Morphine Sulfate 2 mg 11/16/22 23:02 11/16/22 23:28 Morphine 4 Mg/Ml Sdv 1 Ml IVP 2 mg Q4H PRN Administration SEVERE PAIN Pantoprazole Sodiu m 40 mg 11/17/22 09:00 11/17/22 17:26 Pantoprazole 40 Mg Sdv IVP 40 mg BID DANK Administration Vitals/I&O/Wt Last Vital Signs Temp 98 F 11/17/22 16:14 Pulse 63 11/17/22 16:14 Resp 18 11/17/22 16:14 BP 126/82 11/17/22 16:14 Pulse Ox 100 11/17/22 16:14 O2 Del Method 11/17/22 16:14 11/17/22 11/17/22 11/17/22 06:59 14:59 22:59 Intake Total 1000 / 1000 480 / 1480 Output Total 450 / 450 Balance -450 / 50 1000 / 1000 480 / 1480 Weight last 48 hrs Weight 97.522 kg Physical Exam Const: COMMON NORMALS: patient oriented x3 HENMT: COMMON NORMALS: normocephalic and atraumatic HEAD & SCALP: normocephalic and atraumatic Resp: COMMON NORMALS: normal respiratory effort, No retractions, No use of accessory muscles and clear to auscultation bilaterally EFFORT & INSPECTION: Yes symmetric chest movement AUSCULTATION: clear to auscultation bilaterally Cardio: COMMON NORMALS: regular rate, regular rhythm, S1 normal heart sound present, S2 normal heart sound present, No gallops present (Cardio), No murmurs present (Cardio), No rub (Cardio) and Peripheral pulses 2+ throughout RATE: regular rate RHYTHM: regular rhythm HEART SOUNDS: S1 normal heart sound present and S2 normal heart sound present PERIPHERAL PULSES: Peripheral pulses 2+ throughout GI: COMMON NORMALS: Normal to inspection, nondistended, normoactive bowel sounds present, Soft to palpation, non-tender, No hepatosplenomegaly present and no masses AUSCULTATION: Yes normoactive bowel sounds PALPATION: Yes Soft to palpation and Yes No hepatosplenomegaly present RECTAL EXAM: Yes deferred Extremity: COMMON NORMALS: no clubbing, cyanosis or edema and no pedal edema Neuro: COMMON NORMALS: patient oriented x3 Data 11/17/22 02:30 11/17/22 02:30 A&P Assessment and plan (1) Small bowel obstruction: (2) Seropositive rheumatoid arthritis of multiple sites: (3) Vomiting: Plan Dehydration related to vomiting and not been able to eat Small bowel structure Conservative management Patient is not experiencing any active pain or vomiting I did tell him that in case of any worsening of pain or vomiting we should go ahead and place NG tube, he is agreeable Start D5 LR Morphine for pain management Currently abdominal pain 3/10 Sluggish bowel sounds abdomen is benign We will follow-up with general surgery recommendations in the morning Full code DVT prophylaxis on board Attestations Medical Necessity Statement*: In hospital for management of small bowel obstruction. Coding Level of Care Code Acute Code for Chg Fwd Exam Detailed Diagnoses Small bowel obstruction K56.609 Seropositive rheumatoid arthritis of multiple sites M05.79 Vomiting R11.10
[2022-11-17] MEDS: enoxaparin 40 mg/0.4 mL Syringe SUBCUT (21:54)
[2022-11-18 00:11] VITALS: BP 111/66; PULSE 69; RESP 17; TEMP 36.4; O2SAT 94
[2022-11-18 04:00] VITALS: BP 135/87; PULSE 58; RESP 18; TEMP 36.7; O2SAT 95
[2022-11-18] MEDS: ipratropium-albuterol 3 mL Neb INHALATION (05:51)
[2022-11-18 05:54] VITALS: PULSE 69; RESP 16; O2SAT 98
[2022-11-18 06:04] LABS: Basophils % 0.3 %; Eosinophils # 0.1 10^3/uL (0.0-0.8); Eosinophils % 2.2 %; Hematocrit 46.4 % (42.0-52.0); Hemoglobin 14.2 g/dL (11.7-16.6); Lymphocytes # 3.4 10^3/uL (0.8-4.8); Lymphocytes % 57.2 %; Mean Corpuscular HGB Conc 30.6 g/dL (30.0-36.0); Mean Corpuscular Volume 97.9 fl (80-94); Mean Platelet Volume 10.9 fL (7.4-10.4); Monocytes # 0.4 10^3/uL (0.2-0.9); Monocytes % 6.8 %; Neutrophils # 2.01 10^3/uL (1.8-7.7); Neutrophils % 33.5 %; Nucleated Red Blood Cells % 0 %; Platelet Count 130 10^3/cmm (130-400); Red Blood Count 4.74 10^6/uL (4.1-5.3); Red Cell Distribution Width 13.5 % (12.1-15.1)
[2022-11-18 06:21] LABS: Alanine Aminotransferase 36 U/L (0-41); Albumin Level 4.1 g/dL (3.5-5.2); Alkaline Phosphatase 84 U/L (40-130); Anion Gap 11.1 (5-19); Aspartate Amino Transferase 39 U/L (0-40); Blood Urea Nitrogen 13 mg/dL (8-23); Calcium 8.8 mg/dL (8.5-10.5); Carbon Dioxide 28 mmol/L (22-29); Chloride 105 mmol/L (98-107); Glucose 92 mg/dL (65-115); Osmolality Calculated 290 mOsm/kg (285-295); Potassium 4.1 mmol/L (3.5-5.1); Sodium 140 mmol/L (136-145); Total Bilirubin 1.9 mg/dL (0.15-1.2); Total Protein 6.1 g/dL (6.6-8.7)
[2022-11-18 08:00] VITALS: BP 143/87; PULSE 58; PULSE 64; RESP 16; RESP 17; TEMP 36.4; O2SAT 97; O2SAT 98
[2022-11-18] MEDS: pantoprazole 40 mg SDV IVP (08:15)
--- NOTE | 2022-11-18 10:39 | PM.PN ---
Subjective Subjective: Hemodynamically stable overnight Tolerated regular diet this morning The patient's having bowel movements. The patient denies abdominal pain Vitals/I&O/Wt Last Vital Signs Temp 97.6 F 11/18/22 08:00 Pulse 58 L 11/18/22 08:00 Resp 16 11/18/22 08:00 BP 143/87 11/18/22 08:00 Pulse Ox 98 11/18/22 08:00 O2 Del Method 11/18/22 08:00 11/17/22 11/18/22 11/18/22 22:59 06:59 14:59 Intake Total 480 / 1480 480 / 1960 120 / 120 Balance 480 / 1480 480 / 1960 120 / 120 Weight last 48 hrs Weight 215 lb Physical Exam Narrative: Only: No acute HEENT: Normocephalic atraumatic Neck: Free range of motion and nontender Lungs: Clear to auscultation Heart: Regular rate and rhythm without murmurs. There is no S3 or S4 Abdomen: Soft, nondistended, nontender. The patient has normal active bowel sounds. Extremities: There is no clubbing cyanosis or edema Neurologic: The patient is awake, alert, oriented x3. The patient moves all 4 extremities without difficulty. The patient sensations intact to light touch throughout Data 11/18/22 05:39 11/18/22 05:39 A&P Assessment and plan (1) Small bowel obstruction: This patient appears to have I explained to the patient there is no data suggesting that a low residual diet actually prevents recurrent bowel obstructions. I look this up last night. I also explained to the patient that I do not think there is anything he can do to prevent recurrent obstruction. He needs to eat a good diet. He needs to continue his exercise regiment. This patient can be discharged home from my standpoint. Please reconsult for questions or concerns. Attestations Medical Necessity Statement*: may be discharged from my standpoint Coding Level of Care Code 00019 Diagnoses Small bowel obstruction K56.609
--- NOTE | 2022-11-18 11:45 | PM.DCS ---
Discharge Providers Date of Admission: 11/16/22 21:22 Date of Discharge: November 18, 2022 Attending Provider at Admission: Rm Navarro MD Attending Provider at Discharge: Paul Mohamud MD Primary Care Provider: Landon Gilliland MD Diagnoses at Discharge Discharge Diagnosis (1) Small bowel obstruction: Status: Acute Reason for Visit Reason for Visit: abd pain, history of bowel obstruction Hospital Course Hospital Course 72 year old male with multiple history of abdominal surgeries, recurrent bowel obstruction presented with chief complaint abdominal pain and 2 episodes of emesis, he was admitted for the management of small bowel obstruction was managed conservatively, IV hydration and controlled, n.p.o. initially, antiemetics, x-ray KUB, patient responded well to medical management, at the time of discharge he was, passing flatus was having bowel movements, was tolerating regular, diet, denied any abdominal pain nausea vomiting. He was discharged in stable condition to home Physical Exam Const: COMMON NORMALS: patient oriented x3 HENMT: COMMON NORMALS: normocephalic and atraumatic HEAD & SCALP: normocephalic and atraumatic Resp: COMMON NORMALS: normal respiratory effort, No retractions, No use of accessory muscles and clear to auscultation bilaterally EFFORT & INSPECTION: Yes symmetric chest movement AUSCULTATION: clear to auscultation bilaterally Cardio: COMMON NORMALS: regular rate, regular rhythm, S1 normal heart sound present, S2 normal heart sound present, No gallops present (Cardio), No murmurs present (Cardio), No rub (Cardio) and Peripheral pulses 2+ throughout RATE: regular rate RHYTHM: regular rhythm HEART SOUNDS: S1 normal heart sound present and S2 normal heart sound present PERIPHERAL PULSES: Peripheral pulses 2+ throughout GI: COMMON NORMALS: Normal to inspection, nondistended, normoactive bowel sounds present, Soft to palpation, non-tender, No hepatosplenomegaly present and no masses AUSCULTATION: Yes normoactive bowel sounds PALPATION: Yes Soft to palpation and Yes No hepatosplenomegaly present RECTAL EXAM: Yes deferred Extremity: COMMON NORMALS: no clubbing, cyanosis or edema and no pedal edema Neuro: COMMON NORMALS: patient oriented x3 Discharge Data Studies Completed and Pending Completed Studies During Hospitalization Category Date Time Status CT abdomen pelvis w con* [id number] Stat Cat Scan 11/16/22 18:48 Completed XR KUB portable [id number] Routine Exams 11/17/22 07:00 Completed Pending at discharge Category Date Time Status CBC Auto Diff [Complete Blood Count w/Auto] AM LABS Lab 11/19/22 04:00 Ordered CBC Auto Diff [Complete Blood Count w/Auto] AM LABS Lab 11/20/22 04:00 Ordered CMP [Comprehensive Metabolic Panel] AM LABS Lab 11/19/22 04:00 Ordered CMP [Comprehensive Metabolic Panel] AM LABS Lab 11/20/22 04:00 Ordered Radiology Impressions Abdomen/Pelvis CT 11/16/22 18:48 IMPRESSION: Small-bowel obstruction with the transition point appearing to be located at the site of small bowel/colonic anastomosis. No signs of bowel ischemia/perforation. COMMENTS: Consistent with the [employer]'s Incidental Findings Committee white paper (J Am Shawna Radiol 2018): Any incidental renal lesion less than 1 cm or classified as too small to characterize, or any incidental cystic renal lesion characterized as simple-appearing, is likely benign. No follow-up imaging is recommended for these lesions per consensus recommendations based on imaging criteria. Findings were discussed with MINERVA MOSS at 11/16/2022 8:52 PM [facility]. KUB X-Ray 11/17/22 07:00 Impression: Generalized ileus unchanged. Laboratory Results WBC 6.0 10^3/uL (4.0-10.0) 11/18/22 05:39 RBC 4.74 10^6/uL (4.1-5.3) 11/18/22 05:39 Hgb 14.2 g/dL (11.7-16.6) 11/18/22 05:39 Hct 46.4 % (42.0-52.0) 11/18/22 05:39 MCV 97.9 fl (80-94) H 11/18/22 05:39 MCH 30.0 pg (28.0-34.0) 11/18/22 05:39 MCHC 30.6 g/dL (30.0-36.0) 11/18/22 05:39 RDW 13.5 % (12.1-15.1) 11/18/22 05:39 Plt Count 130 10^3/cmm (130-400) 11/18/22 05:39 MPV 10.9 fL (7.4-10.4) H 11/18/22 05:39 Neut % (Auto) 33.5 % 11/18/22 05:39 Lymph % (Auto) 57.2 % 11/18/22 05:39 [place] % (Auto) 6.8 % 11/18/22 05:39 Eos % (Auto) 2.2 % 11/18/22 05:39 Baso % (Auto) 0.3 % 11/18/22 05:39 Neut # (Auto) 2.01 10^3/uL (1.8-7.7) 11/18/22 05:39 Lymph # (Auto) 3.4 10^3/uL (0.8-4.8) 11/18/22 05:39 [place] # (Auto) 0.4 10^3/uL (0.2-0.9) 11/18/22 05:39 Eos # (Auto) 0.1 10^3/uL (0.0-0.8) 11/18/22 05:39 Baso # (Auto) 0.0 10^3/uL (0.0-0.1) 11/18/22 05:39 Nucleated RBC % (auto) 0 % 11/18/22 05:39 Nucleated RBCs # 0.0 /100WBC 11/18/22 05:39 Sodium 140 mmol/L (136-145) 11/18/22 05:39 Potassium 4.1 mmol/L (3.5-5.1) 11/18/22 05:39 Chloride 105 mmol/L (98-107) 11/18/22 05:39 Carbon Dioxide 28 mmol/L (22-29) 11/18/22 05:39 Anion Gap 11.1 (5-19) 11/18/22 05:39 BUN 13 mg/dL (8-23) 11/18/22 05:39 Creatinine 0.9 mg/dL (0.7-1.2) 11/18/22 05:39 GFR Calculation Not Reportable 11/18/22 05:39 Glucose 92 mg/dL (65-115) 11/18/22 05:39 Calculated Osmolality 290 mOsm/kg (285-295) 11/18/22 05:39 Calcium 8.8 mg/dL (8.5-10.5) 11/18/22 05:39 Phosphorus 3.4 mg/dL (2.5-4.5) 11/17/22 02:30 Magnesium 1.8 mg/dL (1.7-2.3) 11/17/22 02:30 Total Bilirubin 1.9 mg/dL (0.15-1.2) H 11/18/22 05:39 AST 39 U/L (0-40) 11/18/22 05:39 ALT 36 U/L (0-41) 11/18/22 05:39 Alkaline Phosphatase 84 U/L (40-130) 11/18/22 05:39 Troponin T Baseline 19 ng/L (0-15) H 11/16/22 19:17 Troponin T 120 Minute 17.25 ng/L (0-15) H 11/16/22 21:30 Delta Troponin T -1.75 ABS# (0-10) L 11/16/22 21:30 Troponin T Hi Sens 6Hr 17.07 ng/L (0-15) H 11/17/22 02:30 Troponin T Hi Sens 6Hr Delta -1.93 ng/L (0-12) L 11/17/22 02:30 Total Protein 6.1 g/dL (6.6-8.7) L 11/18/22 05:39 Albumin 4.1 g/dL (3.5-5.2) 11/18/22 05:39 Globulin 2.0 g/dL (1.3-4.6) 11/18/22 05:39 Lipase 42 U/L (13-60) 11/16/22 19:17 Vitamin B12 348 pg/mL (232-1245) 11/16/22 19:17 Vitals Last Vital Signs Temp 97.6 F 11/18/22 08:00 Pulse 58 L 11/18/22 08:00 Resp 16 11/18/22 08:00 BP 143/87 11/18/22 08:00 Pulse Ox 98 11/18/22 08:00 O2 Del Method 11/18/22 08:00 Discharge Plan Discharge Patient Disposition: Home Condition: Stable Prescriptions: Continued fluticasone propionate [Allergy Relief (fluticasone)] 50 mcg/actuation spray,suspension 2 spray INTRANASAL DAILY Rx Instructions: administer into each nostril polyethylene glycol 3350 [Miralax] 17 gram powder in packet 17 g PO BID docusate sodium 100 mg capsule 100 mg PO BID albuterol sulfate 90 mcg/actuation HFA aerosol inhaler 2 puff inhalation Q6H PRN (Reason: shortness of breath or wheezing) 30 Days Qty: 8.5 4RF budesonide-formoterol [Symbicort] 80-4.5 mcg/actuation HFA aerosol inhaler 2 puff inhalation BID 30 Days Qty: 10.2 4RF esomeprazole magnesium 20 mg capsule,delayed release(DR/EC) 20 mg PO DAILY Humira Pen 40 mg/0.8 mL pen injector kit 40 mg SUBCUT Q14D Qty: 2 3RF prednisone 10 mg tablet 10 mg PO DAILY PRN (Reason: for flares) Qty: 30 0RF Rx Instructions: 1-2 tabs as needed for 5-7 days Discharge Orders: Discharge Order (Routine); Ordered 11/18/22 Ordered By: Paul Mohamud Referrals: Landon Gilliland MD [Primary Care Provider] - 11/29/22 2:45 pm Patient Instructions: Bowel Obstruction (GEN), Ileus (GEN), Opioid Safety Discharge Attestations Time Spent in Discharge Care*: less than 30 min Status at Discharge: Cognitive status at discharge: cognitively intact, Behavioral status at discharge: cooperative, Quality Metrics Clinical Quality Measures [ No reported AMI, CVA or VTE this stay] Coding Level of Care Code Acute Code for Chg Fwd Diagnoses Small bowel obstruction K56.609
[2022-11-18 11:55] VITALS: BP 127/81; PULSE 58; RESP 16; TEMP 36.5; O2SAT 97
== END 2022-11-18 12:46 | disposition home or self-care (01) | DRG 390 ==
LOC: ER 21:14 → MEDSURG 21:41
PROVIDERS: Admitting Provider Internal Medicine; Emergency Provider Emergency Medicine; PCP Family Medicine; Visit Provider Internal Medicine
DX: K56.600 Partial intestinal obstruction, unspecified as to cause (principal); E86.0 Dehydration; K21.9 Gastro-esophageal reflux disease without esophagitis; K22.70 Barrett's esophagus without dysplasia; M05.9 Rheumatoid arthritis with rheumatoid factor, unspecified; Z90.49 Acquired absence of other specified parts of digestive tract; Z87.19 Personal history of other diseases of the digestive system; Z87.891 Personal history of nicotine dependence; Z79.52 Long term (current) use of systemic steroids
CPT/HCPCS: 36415; 74018; 74177; 80048; 80053; 82607; 83690; 83735; 84100; 84484; 85025; 93005; 94640; 96360; 96372; 99214; 99231; 99255; 99285; C9113; J1650; J2270; J7040; J7120; J7121; Q9967

== ENCOUNTER → 2023-02-01 14:53 | Outpatient (BNVA) | payer MEDICARE, OTHER, SELFPAY | PROVIDERS: PCP Family Medicine; Visit Provider Internal Medicine Rheumatology | DX: M05.79 Rheumatoid arthritis with rheumatoid factor of multiple sites without organ or systems involvement (principal); Z79.899 Other long term (current) drug therapy; Z96.659 Presence of unspecified artificial knee joint; Z96.641 Presence of right artificial hip joint | CPT/HCPCS: 99214 ==

== ENCOUNTER → 2023-05-03 14:13 | Outpatient (BNVA) | payer MEDICARE, OTHER, SELFPAY | PROVIDERS: PCP Family Medicine; Visit Provider Nurse Practitioner Family | DX: D22.5 Melanocytic nevi of trunk (principal) | CPT/HCPCS: 17004; 99213 ==

== ENCOUNTER 2023-05-18 15:07 | Outpatient (CLI) | payer MEDICARE, OTHER, SELFPAY ==
--- NOTE | 2023-05-18 15:17 | MR_ITS ---
WS: [id number] MRI LUMBAR SPINE NONCONTRAST TECHNIQUE: Sagittal T1, T2 and STIR imaging. Axial T1 and T2 imaging. CLINICAL INFORMATION: LOW BACK PAIN COMPARISON: MRI October 28, 2020 FINDINGS: Counting performed from the craniocervical junction. 6 lumbar type vertebral bodies labeled L1 through L6. Mild lumbar curve. No acute compression. Grade 1 anterolisthesis L6 on S1. Grade 1 anterolisthesis me asures 3.5 mm. L1-L2: Mild disc bulging with slight effacement of the ventral thecal sac. Mild facet arthropathy. Sp inal canal and foramen are patent. L2-L3: Mild disc bulging with osteophytic ridging. Impingement RIGHT subarticular recess. Moderate fa cet arthropathy. Moderate RIGHT foraminal narrowing. L3-L4: Mild disc bulging with osteophytic ridging. Narrowing of the RIGHT greater than LEFT subarticu lar recess. Mild central canal stenosis. Moderate RIGHT foraminal narrowing. Moderate facet arthropat hy. L4-L5: Mild disc bulging and osteophytic ridging. Impingement traversing L5 nerve roots. Mild central canal stenosis. Moderate facet arthropathy. Mild RIGHT foraminal narrowing. L5-L6: Mild disc bulging with mild central canal stenosis. Impingement on the traversing RIGHT greate r than LEFT L6 nerve roots. Moderate facet arthropathy ligamentum flavum hypertrophy. Moderate LEFT a nd mild RIGHT foraminal narrowing. L6-S1: Grade 1 anterolisthesis. Disc osteophyte complex with endplate ridging. Mild bilateral bony fo raminal narrowing. Moderate facet arthropathy. Visualized pelvic bony structures: Normal. Paravertebral soft tissues: Normal. Partially visualized LEFT peripelvic renal cysts. MR/MR lumbar spine wo con* [id number] IMPRESSION: 1. Counting performed from the craniocervical junction. 6 lumbar type vertebra l bodies labeled L1 through L6. 2. Mild central canal stenosis L4-L5 and L5 L6 unchanged compared to previous. Impingement on the subarticular recess at these levels. 3. Mild central canal stenosis L3-L4 with narrowing of the subarticular recess bilaterally appears stable. 4. Mild to moderate bony foraminal narrowing worse at RIGHT L2-L3, RIGHT L3-L4 , and bilateral L5-L6 worse in the LEFT. 5. Overall no significant changes compared to October 28, 2020.
== END 2023-05-18 15:08 | disposition home or self-care (01) ==
PROVIDERS: PCP Family Medicine; Visit Provider Nurse Practitioner Family
DX: M48.061 Spinal stenosis, lumbar region without neurogenic claudication (principal)
CPT/HCPCS: 72148

== ENCOUNTER 2023-05-24 14:15 | Outpatient (CLI) | payer MEDICARE, OTHER, SELFPAY ==
--- NOTE | 2023-05-24 14:26 | US_ITS ---
WS: [id number] ULTRASOUND RENAL TECHNIQUE: Ultrasound examination of both kidneys. CLINICAL INFORMATION: CYST OF KIDNEY COMPARISON: CT 11/16/2022 and MRI 05/18/2023 FINDINGS: Prominent renal collecting systems with peripelvic renal cysts left greater than right. No significant hydronephrosis. RIGHT: Right kidney is normal in size and appearance. Echogenicity: Normal. Cortical thickness: 1.2 cm; Normal. Hydronephrosis: None. Perinephric fluid: None. Right kidney measures: 11.2 cm x 4.0 cm x 6.0 cm. LEFT: Left kidney is normal in size and appearance. Echogenicity: Normal. Cortical thickness: 1.0 cm; Normal. Hydronephrosis: None. Perinephric fluid: None. Left kidney measures: 12.0 cm x 4.2 cm x 5.3 cm. Normal visualized aorta. Urine distended bladder with mild diffuse bladder wall thickening. This can be seen with chronic cystitis or bladder outlet obstruction. IMPRESSION: 1. Prominent renal collecting systems with peripelvic renal cysts left greater than right. No signif icant hydronephrosis. 2. Urine distended bladder with mild diffuse bladder wall thickening. This can be seen with chronic cystitis or bladder outlet obstruction. Recommend correlation PSA.
== END 2023-05-24 14:16 | disposition home or self-care (01) ==
PROVIDERS: PCP Family Medicine; Visit Provider Nurse Practitioner Family
DX: N28.1 Cyst of kidney, acquired (principal); N32.9 Bladder disorder, unspecified
CPT/HCPCS: 76770

== ENCOUNTER → 2023-06-07 13:47 | Outpatient (BNVA) | payer MEDICARE, OTHER, SELFPAY | PROVIDERS: PCP Family Medicine; Visit Provider Internal Medicine Rheumatology | DX: Z79.899 Other long term (current) drug therapy (principal); M05.79 Rheumatoid arthritis with rheumatoid factor of multiple sites without organ or systems involvement; Z96.659 Presence of unspecified artificial knee joint; Z96.641 Presence of right artificial hip joint | CPT/HCPCS: 99214 ==

== ENCOUNTER → 2023-06-22 08:43 | Outpatient (BNVA) | payer MEDICARE, OTHER, SELFPAY | PROVIDERS: PCP Family Medicine; Visit Provider Anesthesiology Pain Medicine | DX: M19.90 Unspecified osteoarthritis, unspecified site; M47.816 Spondylosis without myelopathy or radiculopathy, lumbar region; M51.36 Other intervertebral disc degeneration, lumbar region; M25.551 Pain in right hip; M79.604 Pain in right leg | CPT/HCPCS: 99215 ==

== ENCOUNTER 2023-07-10 09:03 | Outpatient (CLI) | payer MEDICARE, SELFPAY ==
[2023-07-10 10:12] LABS: Basophils % 0.5 %; Eosinophils # 0.2 10^3/uL (0.0-0.8); Eosinophils % 3.3 %; Hematocrit 42.8 % (37-53); Lymphocytes # 4.1 10^3/uL (0.8-4.8); Lymphocytes % 56.2 %; Mean Corpuscular HGB Conc 31.5 g/dL (30-55); Mean Corpuscular Hemoglobin 31.1 pg (27-33); Mean Corpuscular Volume 98.6 fl (82-101); Mean Platelet Volume 10.8 fL (7.4-10.4); Monocytes # 0.5 10^3/uL (0.2-0.9); Monocytes % 6.3 %; Neutrophils # 2.46 10^3/uL (1.8-7.7); Neutrophils % 33.6 %; Nucleated Red Blood Cells % 0 %; Platelet Count 120 10^3/cmm (157-399); Red Blood Count 4.34 10^6/uL (3.85-5.65); Red Cell Distribution Width 13.1 % (12.1-15.1); White Blood Count 7.33 10^3/uL (3.29-11.43)
[2023-07-10 10:54] LABS: Slide Review Slide Review Perform
== END 2023-07-10 09:04 | disposition home or self-care (01) ==
PROVIDERS: PCP Family Medicine; Visit Provider Internal Medicine Rheumatology
DX: Z79.899 Other long term (current) drug therapy (principal)
CPT/HCPCS: 36415; 85025

== ENCOUNTER → 2023-07-11 12:38 | Outpatient (BNVA) | payer MEDICARE, OTHER, SELFPAY | PROVIDERS: PCP Family Medicine; Visit Provider Anesthesiology Pain Medicine | DX: M54.16 Radiculopathy, lumbar region (principal) | CPT/HCPCS: 64483; 64484; J1100; J3490 ==

== ENCOUNTER 2023-07-18 05:59 | Outpatient (CLI) | payer MEDICARE, OTHER, SELFPAY ==
--- NOTE | 2023-07-18 | USCV_ITS ---
Rizwan Lobato Age: 72 Gender: M : 1950 Exam Date: 07/18/2023 06:13 Ordering Phys: Gerald White MD Technologist: Carl Mireles [place] [facility] [place]ication: irregular heart beat BP: 120 / 70 HR: 57 Rhythm: Sinus Technical Quality: Adequate MEASUREMENTS (Male / Female) Normal Values 2D ECHO LV Diastolic Diameter PLAX 5.2 cm 4.2 - 5.9 / 3.9 - 5.3 cm LV Systolic Diameter PLAX 4.3 cm IVS Diastolic Thickness 1.4 cm 0.6 - 1.0 / 0.6 - 0.9 cm IVS Systolic Thickness 1.6 cm LVPW Diastolic Thickness 1.4 cm 0.6 - 1.0 / 0.6 - 0.9 cm LVPW Systolic Thickness 1.6 cm LV Ejection Fraction 2D Teich 30.4 % LV Ejection Fraction MOD 2C 49.2 % LV Ejection Fraction 2C AL 46.6 % LA Diameter 4.0 cm IVC Diameter 1.2 cm M-MODE Aortic Annulus Diameter 3.8 cm LA Ao Ratio MM 1.1 MV E Point Septal Separation 1.4 cm DOPPLER AV Peak Velocity 152.0 cm/s LVOT Peak Velocity 81.0 cm/s MV Area PHT 3.3 cm squared Mitral E to A Ratio 3.1 MV E' Velocity 34.0 cm/s Mitral E to MV E' Ratio 11.9 Mitral E to LV E' Lateral Ratio 14.6 Mitral E to LV E' Septal Ratio 10.2 TR Peak Velocity 235.0 cm/s TR Peak Gradient 22.1 mmHg TV Peak E Velocity 100.0 cm/s Right Atrial Pressure 3.0 mmHg Pulmonary Artery Systolic Pressu 25.1 mmHg FINDINGS Left Ventricle The examination is difficult due to very frequent ectopy. The underlying rhythm is probably sinus though it is difficult to tell. The ectopy decreases the sensitivity of the examination making it very difficult to assess the wall motion. The ventricle appears to be mildly enlarged. There is probably some hypokinesis which is global. A very rough estimate of the ejection fraction is 40%. No obvious wall motion disturbances. Due to the ectopy diastolic function cannot be determined. Right Ventricle Normal right ventricular size and systolic function. Right Atrium Mildly increased right atrial size. Left Atrium Mildly increased left atrial size. Mitral Valve Structurally normal mitral valve. Trace mitral valve regurgitation. Aortic Valve Structurally normal aortic valve without significant sclerosis or stenosis. There is no aortic regurgitation. Tricuspid Valve Structurally normal tricuspid valve without significant stenosis or regurgitation. Pulmonary artery systolic pressure is normal. Pulmonic Valve Pulmonic valve not well visualized. Pericardium Normal pericardium without effusion. Aorta Normal ascending aorta dimension. IVC The inferior vena cava appears normal. CONCLUSIONS The examination is difficult due to very frequent ectopy. The underlying rhythm is probably sinus though it is difficult to tell. The ectopy decreases the sensitivity of the examination making it very difficult to assess the wall motion. The ventricle appears to be mildly enlarged. There is probably some hypokinesis which is global. A very rough estimate of the ejection fraction is 40%. No obvious wall motion disturbances. Due to the ectopy diastolic function cannot be determined. Mildly increased right atrial size. Mildly increased left atrial size. Structurally normal mitral valve. Trace mitral valve regurgitation. There are no prior echocardiogram studies to compare. Additional images were obtained the following day without the ectopy. This confirms the mild enlargement of the left ventricle with global hypokinesis and an ejection fraction of about 40%. There is also mild to moderate biatrial enlargement. The remainder of the above report is unchanged. Dr. Haile Pressley MD (Electronically Signed) Final Date: 18 July 2023 08:10 Amended: 19 July 2023 16:03 C
== END 2023-07-18 06:00 | disposition home or self-care (01) ==
PROVIDERS: PCP Family Medicine; Visit Provider Family Medicine
DX: I49.3 Ventricular premature depolarization (principal); I51.7 Cardiomegaly; Z87.891 Personal history of nicotine dependence
CPT/HCPCS: 93306; 99203

== ENCOUNTER → 2023-07-19 09:25 | Outpatient (BNVA) | payer MEDICARE, OTHER, SELFPAY | PROVIDERS: PCP Family Medicine; Visit Provider Internal Medicine Cardiovascular Disease | DX: I49.3 Ventricular premature depolarization (principal); R06.02 Shortness of breath | CPT/HCPCS: 93225 ==

== ENCOUNTER → 2023-08-08 08:49 | Outpatient (BNVA) | payer MEDICARE, OTHER, SELFPAY | PROVIDERS: PCP Family Medicine; Visit Provider Anesthesiology Pain Medicine | DX: M19.90 Unspecified osteoarthritis, unspecified site; M47.816 Spondylosis without myelopathy or radiculopathy, lumbar region; M51.36 Other intervertebral disc degeneration, lumbar region; M25.551 Pain in right hip; M48.061 Spinal stenosis, lumbar region without neurogenic claudication | CPT/HCPCS: 99215 ==

== ENCOUNTER → 2023-08-28 14:51 | Outpatient (BNVA) | payer MEDICARE, OTHER, SELFPAY | PROVIDERS: PCP Family Medicine; Visit Provider Anesthesiology Pain Medicine | DX: M47.816 Spondylosis without myelopathy or radiculopathy, lumbar region (principal) | CPT/HCPCS: 64635; 64636 ==

== ENCOUNTER → 2023-09-06 08:11 | Outpatient (BNVA) | payer MEDICARE, OTHER, SELFPAY | PROVIDERS: PCP Family Medicine; Visit Provider Internal Medicine Pulmonary Disease | DX: J45.30 Mild persistent asthma, uncomplicated (principal); Z87.891 Personal history of nicotine dependence | CPT/HCPCS: 99214 ==

== ENCOUNTER → 2023-09-14 13:58 | Outpatient (BNVA) | payer MEDICARE, OTHER, SELFPAY | PROVIDERS: PCP Family Medicine; Visit Provider Anesthesiology Pain Medicine | DX: M47.816 Spondylosis without myelopathy or radiculopathy, lumbar region (principal) | CPT/HCPCS: 64635; 64636; J1030 ==

== ENCOUNTER → 2023-09-18 13:14 | Outpatient (BNVA) | payer MEDICARE, OTHER, SELFPAY | PROVIDERS: PCP Family Medicine; Visit Provider Internal Medicine Cardiovascular Disease | DX: I49.3 Ventricular premature depolarization (principal); I51.9 Heart disease, unspecified; Z87.891 Personal history of nicotine dependence | CPT/HCPCS: 99213 ==

== ENCOUNTER → 2023-09-21 10:14 | Outpatient (BNVA) | payer MEDICARE, OTHER, SELFPAY | PROVIDERS: PCP Family Medicine; Visit Provider Anesthesiology Pain Medicine | DX: M19.90 Unspecified osteoarthritis, unspecified site; M47.816 Spondylosis without myelopathy or radiculopathy, lumbar region; M51.36 Other intervertebral disc degeneration, lumbar region; M48.061 Spinal stenosis, lumbar region without neurogenic claudication; M25.551 Pain in right hip | CPT/HCPCS: 99213 ==

== ENCOUNTER 2023-10-02 10:25 | Outpatient (CLI) | payer MEDICARE, OTHER, SELFPAY ==
[2023-10-02 11:32] LABS: Basophils % 0.2 %; Eosinophils # 0.3 10^3/uL (0.0-0.8); Eosinophils % 3.1 %; Hematocrit 41.8 % (37-53); Lymphocytes # 3.8 10^3/uL (0.8-4.8); Lymphocytes % 41.3 %; Mean Corpuscular HGB Conc 31.8 g/dL (30-55); Mean Corpuscular Volume 97.4 fl (82-101); Mean Platelet Volume 10.7 fL (7.4-10.4); Monocytes # 0.6 10^3/uL (0.2-0.9); Monocytes % 6.3 %; Neutrophils # 4.46 10^3/uL (1.8-7.7); Nucleated Red Blood Cells % 0 %; Platelet Count 124 10^3/cmm (157-399); Red Blood Count 4.29 10^6/uL (3.85-5.65); Red Cell Distribution Width 13.1 % (12.1-15.1); White Blood Count 9.09 10^3/uL (3.29-11.43)
[2023-10-02 12:04] LABS: Alanine Aminotransferase 19 U/L (0-41); Albumin Level 4.3 g/dL (3.5-5.2); Alkaline Phosphatase 65 U/L (40-130); Aspartate Amino Transferase 28 U/L (0-40); Globulin 2.3 g/dL (1.3-4.6); Total Bilirubin 1.1 mg/dL (0.15-1.2); Total Protein 6.6 g/dL (6.6-8.7)
== END 2023-10-02 10:26 | disposition home or self-care (01) ==
LOC: LAB 10:26
PROVIDERS: PCP Family Medicine; Visit Provider Internal Medicine Rheumatology
DX: Z79.899 Other long term (current) drug therapy (principal)
CPT/HCPCS: 36415; 80076; 82565; 85025; 86140

== ENCOUNTER 2023-10-23 20:00 | Outpatient (CLI) | payer MEDICARE, OTHER, SELFPAY | END 2023-10-23 20:01 | disposition home or self-care (01) | LOC: SLEEP 10-24 01:52 | PROVIDERS: PCP Family Medicine; Visit Provider Nurse Practitioner Family | DX: G47.33 Obstructive sleep apnea (adult) (pediatric) (principal); G47.36 Sleep related hypoventilation in conditions classified elsewhere; G47.10 Hypersomnia, unspecified | CPT/HCPCS: 95810 ==

== ENCOUNTER → 2023-10-31 10:29 | Outpatient (BNVA) | payer MEDICARE, OTHER, SELFPAY | PROVIDERS: PCP Family Medicine; Visit Provider Nurse Practitioner Family | DX: L57.0 Actinic keratosis (principal); D48.5 Neoplasm of uncertain behavior of skin; L57.8 Other skin changes due to chronic exposure to nonionizing radiation; D18.01 Hemangioma of skin and subcutaneous tissue; L81.4 Other melanin hyperpigmentation | CPT/HCPCS: 11104; 17000; 99213 ==

== ENCOUNTER → 2023-11-22 11:28 | Outpatient (BNVA) | payer MEDICARE, OTHER, SELFPAY | PROVIDERS: PCP Family Medicine; Visit Provider Dermatology | DX: L57.0 Actinic keratosis (principal) | CPT/HCPCS: 96567 ==

== ENCOUNTER 2023-12-29 11:37 | Outpatient (CLI) | payer MEDICARE, OTHER, SELFPAY ==
--- NOTE | 2023-12-29 11:43 | CT_ITS ---
WS: [id number] CT ABDOMEN WITH CONTRAST HISTORY: ABDOMINAL PAIN Contiguous single phase 5 mm axial imaging performed to the abdomen. Oral contrast has been provided. Coronal and sagittal reformats are submitted. All CT scans at [facility] use at least one of these dose optimization techniques: automated exposure control; mA and/or kV adjustment per patient size (includes targeted exams where dose is matched to clinical indication); or iterative reconstruct ion. IV CONTRAST: Omnipaque 350; 100 mL IV. Oral contrast: Yes. DLP: 420.29 mGy.cm COMPARISON: 11/16/2022 Lower thorax: Hyperinflated lung bases. Heart is normal size. Small hiatal hernia. Liver/biliary system: Normal size with no intrahepatic dilatation. Gallbladder: Prior cholecystectomy. Pancreas: Normal size pancreas and pancreatic duct. No adjacent inflammation. Spleen: Spleen is enlarged at 14.6 cm in length. Adrenal glands: Normal. Right kidney: Slight dilatation of the RIGHT renal pelvis. No mass. Left kidney: Small parapelvic cysts. No proximal ureteral obstruction or dilatation. Aorta: Mild atherosclerosis with no aneurysm. Lymphadenopathy: None. Free fluid: None. GI tract: Nondistended stomach. No small bowel obstructive pattern. Surgical sutures are noted in the RIGHT abdomen. Visualized colon demonstrates mild diffuse constipation. Abdominal wall: Thinning of the anterior abdominal wall. There may be a tiny hernia just to the LEFT of the umbilicus. No protrusion of the GI tract. The pelvis was not included in this order. The urinary bladder as visualized appears slightly enlarge d. Visualized osseous structures: Advanced degenerative changes in the lumbar spine. IMPRESSION: 1. Diffuse constipation. No obstructive pattern. 2. Prior cholecystectomy. 3. Mild splenomegaly, stable since 11/16/2022. 4. The pelvis was not included in the order for this abdomen CT. A portion of the urinary bladder ap pears to be high riding suggesting there may be over distention. 5. Ventral abdominal wall thinning and possible small hernia containing fat only.
[2023-12-29] MEDS: iohexol 350 mg/mL 500 mL Btl (per mL) IV (12:50)
[2023-12-29] MEDS: iohexol 350 mg/mL 500 mL Btl (per mL) PO (12:51)
== END 2023-12-29 11:38 | disposition home or self-care (01) ==
LOC: RAD 11:38
PROVIDERS: PCP Nurse Practitioner Family; Visit Provider Nurse Practitioner Family
DX: K59.00 Constipation, unspecified (principal); Z90.49 Acquired absence of other specified parts of digestive tract; R16.1 Splenomegaly, not elsewhere classified
CPT/HCPCS: 74160; Q9967

== ENCOUNTER → 2024-01-03 09:10 | Outpatient (BNVA) | payer MEDICARE, OTHER, SELFPAY | PROVIDERS: PCP Nurse Practitioner Family; Visit Provider Dermatology | DX: L57.0 Actinic keratosis (principal) | CPT/HCPCS: 96567 ==

== ENCOUNTER 2024-01-18 14:39 | Outpatient (CLI) | payer MEDICARE, OTHER, SELFPAY ==
--- NOTE | 2024-01-18 14:45 | USCV_ITS ---
Rizwan Lobato Age: 73 Gender: M : 1950 Exam Date: 01/18/2024 14:59 Ordering Phys: Haile Pressley MD ([email or web address]) Technologist: [place] [facility] [place]: Cardiomyopathy BP: 138 / 83 HR: 48 Rhythm: Sinus Technical Quality: Adequate MEASUREMENTS (Male / Female) Normal Values 2D ECHO LVOT Diameter 2.2 cm LV Ejection Fraction MOD 2C 58.6 % LV Ejection Fraction 2C AL 58.8 % LA Diameter 4.7 cm RA Systolic Volume 4C AL 102.3 ml RA Systolic Volume 4C MOD 97.2 ml Aorta at Sinotubular Diameter 3.3 cm IVC Diameter 1.7 cm M-MODE LA Ao Ratio MM 1.2 AV Cusp Separation MM 2.1 cm DOPPLER AV Peak Velocity 169.0 cm/s LVOT Peak Velocity 93.0 cm/s AV Area Cont Eq vti 2.5 cm squared AV Area Cont Eq pk 2.1 cm squared MV Peak Velocity 78.0 cm/s MV Area PHT 3.4 cm squared Mitral E to A Ratio 1.8 TV Peak Velocity 205.0 cm/s TR Peak Velocity 267.0 cm/s TR Peak Gradient 28.5 mmHg TV Peak E Velocity 69.0 cm/s Right Atrial Pressure 3.0 mmHg Pulmonary Artery Systolic Pressu 31.5 mmHg PV Peak Velocity 88.0 cm/s FINDINGS Left Ventricle Diffuse hypokinesia of the left ventricular ejection fraction of around 40 to 45%,( visual) Right Ventricle The right ventricle is normal in size and function. Right Atrium Mildly increased right atrial size. Left Atrium Mildly increased left atrial size. Mitral Valve Mild mitral valve regurgitation. Aortic Valve Thickened aortic valve. Tricuspid Valve Thickened tricuspid valve. Mild tricuspid valve regurgitation. Pulmonic Valve Trace pulmonary valve regurgitation. Pericardium Normal pericardium without effusion. Aorta Normal aortic annulus size. IVC Normal inferior vena cava. CONCLUSIONS Diffuse hypokinesia of the left ventricular ejection fraction of around 40 to 45%,( visual). Mild biatrial enlargement.Mild mitral valve regurgitation. Thickened aortic valve. Thickened tricuspid valve. Mild tricuspid valve regurgitation. Trace pulmonary valve regurgitation. There is no pericardial effusion. There are no intracardiac masses. Compared to the study from 07/18/2023, there may not be q significant change Dr Franky Sterling MD FACC (Electronically Signed) Final Date: 18 January 2024 19:54 S
== END 2024-01-18 14:40 | disposition home or self-care (01) ==
LOC: RAD 14:40
PROVIDERS: PCP Nurse Practitioner Family; Visit Provider Internal Medicine Cardiovascular Disease
DX: I49.3 Ventricular premature depolarization (principal); I08.3 Combined rheumatic disorders of mitral, aortic and tricuspid valves
CPT/HCPCS: 93306

== ENCOUNTER → 2024-02-02 08:59 | Outpatient (BNVA) | payer MEDICARE, OTHER, SELFPAY | PROVIDERS: PCP Nurse Practitioner Family; Visit Provider Internal Medicine Cardiovascular Disease | DX: I49.3 Ventricular premature depolarization (principal); I51.9 Heart disease, unspecified | CPT/HCPCS: 99213 ==

== ENCOUNTER 2024-02-07 07:09 | Outpatient (CLI) | payer MEDICARE, OTHER, SELFPAY ==
[2024-02-07] VITALS (28 sets, daily range): BP systolic 100–151; BP diastolic 63–103; PULSE 55–86; RESP 12–30; TEMP 36.6–37.1; O2SAT 92–100; BMI 27.8
[2024-02-07] MEDS: aspirin 325 mg Tablet PO (07:45)
[2024-02-07] MEDS: diphenhydrAMINE 50 mg Capsule PO (07:45)
[2024-02-07 07:59] LABS: Basophils % 0.3 %; Eosinophils # 0.2 10^3/uL (0.0-0.8); Eosinophils % 2.3 %; Hematocrit 43.4 % (37-53); Lymphocytes % 60.3 %; Mean Corpuscular HGB Conc 31.6 g/dL (30-55); Mean Corpuscular Volume 98.2 fl (82-101); Mean Platelet Volume 10.4 fL (7.4-10.4); Monocytes # 0.4 10^3/uL (0.2-0.9); Monocytes % 5.6 %; Neutrophils # 2.09 10^3/uL (1.8-7.7); Neutrophils % 31.3 %; Nucleated Red Blood Cells % 0 %; Platelet Count 115 10^3/cmm (157-399); Red Blood Count 4.42 10^6/uL (3.85-5.65); Red Cell Distribution Width 12.8 % (12.1-15.1); White Blood Count 6.65 10^3/uL (3.29-11.43)
[2024-02-07 08:13] LABS: Anion Gap 12.9 (5-19); Blood Urea Nitrogen 24 mg/dL (8-23); Calcium 8.6 mg/dL (8.5-10.5); Carbon Dioxide 28 mmol/L (22-29); Chloride 106 mmol/L (98-107); Glucose 100 mg/dL (65-115); Osmolality Calculated 298 mOsm/kg (285-295); Potassium 4.9 mmol/L (3.5-5.1); Sodium 142 mmol/L (136-145)
[2024-02-07 08:22] LABS: Slide Review Slide Review Perform
--- NOTE | 2024-02-07 08:22 | P.HPUD_ITS ---
Surgery/Procedure H&P Update DATE OF PROCEDURE: February 07, 2024 DATE H&P PERFORMED: 02/02/24 H&P UPDATE INFORMATION: I have reviewed H&P completed within last 30 days, I have examined patient prior to procedure, No changes to prior documentation and H&P is in [facility] [place] EMR on date indicated PREOP DIAGNOSIS: cardiomyopathy PRIMARY INDICATION FOR PROCEDURE: cardiomyopathy PLANNED PROCEDURE: Operation Date: 02/07/24 08:15 Proposed Procedures p Cardiac Catheterization/ [facility] [address], I49.3, I51.9(Left) - Haile Pressley MD
--- NOTE | 2024-02-07 08:30 | XACV_ITS ---
Ht: 188 cm Wt: 98 kg BSA: 2.28 m2 Gender: Male : 1950 Any Known Allergies: Other Exam Priority: Routine Procedure(s): Procedure Description: Diagnostic procedure Procedure Description: Coronary Angiography Huan AYALA; Diagnostic Cath Status: Elective Diagnostic Findings * Patient has a mild global cardiomyopathy with an ejection fraction of about 40%. He has fatigue but no chest pain. Stress testing in the past about 4 years ago was negative. Patient requested angiography because of the concern for the cardiomyopathy. * Coronary angiography reveals right coronary artery dominance. The left main is normal and bifurcates into the LAD and circumflex. The LAD is a medium to large caliber vessel contains some calcification and minor luminal irregularities in the proximal and midportion. There are no significant stenoses. Circumflex contains a 50% stenosis proximally. More distally there is a bifurcation of the 2 larger marginal branches. The first of these contains a 60% stenosis in the ostial portion. The second contains a 70 to 80% stenosis in the proximal portion. The right coronary artery is a large dominant vessel and contains a 30 to 40% stenosis in the proximal portion and a 20% stenosis in the midportion.. PCI Status: Elective PCI LVEF Assessed: No PCI Indication: CAD (without Ischemic Sx) Interventional Findings * Because of the severity of the narrowing of the second obtuse marginal branch I decided to make an attempt to intervene. It required a fairly large guide. The guide support was poor. I was able to advance a wire without too much difficulty however a balloon would not reach the lesion due to the lack of guide support and the severity of the stenosis. I made an attempt to primarily stent this but this was unsuccessful as well. I then tried a GuideLiner device which would not pass much past the ostium of the circumflex due to the poor guide support. I was finally able to get a 1.5 mm balloon to the lesion. Angioplasty was performed. I made several attempts to put a 2.5 mm balloon down but it would never pass. I chose to stop the procedure since this is single-vessel coronary disease and the cardiomyopathy is global. We will make an attempt to treat medically. 1 could reapproach this from the groin. Decision for PCI with Surgical Consult: No PCI for Multi-vessel Disease: No Conclusions 1. One-vessel coronary artery disease. Balloon angioplasty of the second obtuse marginal branch with minimal success due to the small balloon and inability to pass larger balloons. Recommendations * Goal is to treat him medically. Without angina I do not think it is necessary to reapproach this lesion and given 1 vessel disease and a global cardiomyopathy I do not think it is necessary. Interventional RX Recommendation: medical therapy and/or counseling Diagnostic RX Recommendation: medical therapy and/or counseling Anticoagulation: Heparin Pressures Phase:Rest AO : 111 / 60 ( 80 ) @ 9:50:00 AM 119 / 71 ( 93 ) @ 10:04:00 AM 80 / 80 ( 70 ) @ 10:17:00 AM Clinical Evaluation EBL: 5mL-10mL Procedural Details Procedure Consent Obtained. Pre-Procedure Time Out. Identified patient by full name and date of as verbalized by the patient/guarantor. Does the consent match the physician's order: Yes. Accurate & Complete Informed Consent: Yes. Inpatient/Outpatient History & Physical on Chart: Yes. If H&P is completed, is and addenduem needed: No; If yes, is the addendum complete: N/A. Visualize and Verify Site with Patient/Guarantor: N/A. Relevant Radiology Images available: N/A. Pre-op teaching completed and patient verbalized understanding. The risks, benefits, and alternatives of sedation and/or procedure were discussed by physician. The patient agrees to continue. Physician arrived. Procedure started. Correct patient, site and procedure confirmed by cath team. PERRLA. Strong, equal hand cable lacer bilaterally. Lungs clear x 5 lobes. IV Fluids: 0.9% NaCl at KVO. 0 mL infused prior to [employer]. Pre Procedural Pulses: bilateral dorsalis pedis was Doppled. Pre Procedural Pulses: bilateral posterior tibial was Doppled. Pre Procedural Pulses: bilateral radial was 3+. IV Site on Arrival: 20 gauge in the right anticubital. Oxygen started at 2liters/min via nasal canula. right groin was prepped with chloroprep then draped in the usual sterile fashion. right radial was prepped with chloroprep then draped in the usual sterile fashion. Baseline sample Acquired. HR: 77 BPM. [facility] Clinical Fraility Score: 2: Well. 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 Chest Pain Symptom Assessment: Asymptomatic. Cardiovascular Instability: No,. Equipment: 6F - Radial. Cardiac Cath Pack. ACIST Manifold Kit Model BT 2000. Heparinized Saline (2 units/mL), 1000 mL bag. Physician scrubbed in. Immediate Pre-Procedure Time Out. Correct Patient: Yes; Correct Procedure: Yes; Correct Site: Yes; Correct Patient Position: Yes; Correct Supplies: Yes; Dried Flammable Prep: Yes; Blood Products Available: N/A;. Lidocaine 1% infiltrated to the right radial. Arterial access obtained. A 5 emirati TIG catheter in over wire. Multiple views taken of left coronary artery. Catheter redirected to the RCA. Multiple views taken of right coronary artery. Catheter removed over the exchange wire. A 5 emirati JL4.5 catheter in over wire. Multiple views taken of left coronary artery. Patient's family updated. Catheter removed over the exchange wire. 6 emirati XB 3.5 guide catheter was inserted over the wire. [employer] guidewire was advanced through the guide catheter to lesion in the prox Circ. MDT R LARRY 3.5x12 SHANDRA inserted. Unable to cross lesion. Intact stent removed. AB TREK 3.0x12 balloon inserted. Unable to cross lesion. Balloon out. Guideliner inserted over wire. AB TREK 3.0x12 balloon inserted. Unable to cross lesion. Balloon out. Inflation number : 1 A AB MINI TREK 1.50X20 RX BALLOON was prepped and advanced across the 2nd Ob Alaina , then inflated to 14 SIGIFREDO for 0:31 seconds. Balloon out. AB TREK 3.0x12 balloon inserted. Unable to cross lesion. Balloon out. AB TREK 2.5x15 RX balloon inserted. Unable to cross lesion. Balloon out. Guideliner out. Wire out. Guide catheter out. Physician scrubbed out. A TR Band was successful obtaining hemostatsis at the Right Radial artery insertion site. TR band placed. Hemostasis obtained. Post Procedure: Pulses reassessed and unchanged. PERRLA. Strong, equal hand cable lacer bilaterally. No VTE prophylaxis required. Contrast type used: Omnipaque 300 mgI/mL, 500 mL bottle. Medication's Wasted: Lidocaine 1% = 17 mL. Medication's Wasted: Nitro = 49.8 mg. Medication's Wasted: Other = versed 1 mg. Medication's Wasted: Other = fentanyl 25 mcg. Medication's Wasted: Heparin = 1000 units. Post-op diagnosis: CAD, cardiomyopathy. Complications: none. Estimated blood loss: 5mL-10mL. Responsiveness - Normal response to verbal stimuli; alert and oriented, PERRLA. Airway - Unaffected, no intervention required; spontaneous ventilation. Circulation: W/N/L, pulses unchanged. Nausea/Vomiting: N/A. Procedure completed. Patient transferred by wheelchair to CPRU. Vital chart was stopped. Access Site Site: Right Radial artery Sheath Size: 6 Fr Hemostasis Method: TR Band Hemostasis Success: Successful Procedure Medications Start: 8:33 AM Stop: 8:33 AM Medication: Versed Amount: 1 mg Route: I.V. Start: 8:35 AM Stop: 8:35 AM Medication: Fentanyl Amount: 25 mcg Route: I.V. Start: 8:48 AM Stop: 8:48 AM Medication: Nitrogylcerin Amount: 200 mcg Route: I.A. Start: 8:50 AM Stop: 8:50 AM Medication: Versed Amount: 1 mg Route: I.V. Start: 8:57 AM Stop: 8:57 AM Medication: Fentanyl Amount: 25 mcg Route: I.V. Start: 9:07 AM Stop: 9:07 AM Medication: Heparin Amount: 5000 units Route: I.V. Start: 9:08 AM Stop: 9:08 AM Medication: Versed Amount: 1 mg Route: I.V. Start: 9:28 AM Stop: 9:28 AM Medication: Fentanyl Amount: 25 mcg Route: I.V. I, the attending physician, have reviewed and verified all procedure medications. Yes, all medications given per verbal order History/Risk Factors Hypertension: No Dyslipidemia: No Peripheral Arterial Disease (PAD): No Myocardial Infarction (MD): No Obesity: No Renal Disease: No Tobacco Use: Former Prior Interventions PCI: No CABG: No Valve Surgery: No Report Signatures Finalized by Dr. Haile Pressley MD on 02/07/2024 10:00 AM
--- NOTE | 2024-02-07 09:40 | SUR.EXTENDED ---
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 Patient ambulated to the cot without difficulty. A & 0 x 3. secured entrance monitor placed and vital signs obtained. TR band intact to the right wrist. No bleeding or hematoma noted. Palpable radial pulse. No other assessment changes noted from pre cath assessment. Will transfer to room 112-1 after recovery. Family at bedside. No concerns voiced at this time.
--- NOTE | 2024-02-07 10:10 | SUR.EXTENDED ---
Patient transferred to room 112-1 via wheelchair with his spouse, Barbra.
[2024-02-07] MEDS: sodium chloride 0.9% 1,000 ML 100 ML IV (11:00)
[2024-02-07] MEDS: albuterol 2.5 mg/3 mL Neb INHALATION (15:20)
[2024-02-07] MEDS: docusate sodium 100 mg Capsule PO (18:07)
--- NOTE | 2024-02-07 20:19 | PC.NURSE ---
Patient Right radial wrist site is covered dry and intact. Patient resting in bed, talking on phone. Fluids where run for over 10 hours.
[2024-02-07] MEDS: temazepam 15 mg Capsule PO (20:43)
[2024-02-08] VITALS (39 sets, daily range): BP systolic 106–144; BP diastolic 67–88; PULSE 55–80; RESP 10–35; TEMP 36.6–36.7; O2SAT 81–97
--- NOTE | 2024-02-08 07:14 | P.DS_ITS ---
Discharge Providers Date of Admission: 02/08/2024 Date of Discharge: February 08, 2024 Attending Provider at Admission: Huan Attending Provider at Discharge: Haile Pressley MD Primary Care Provider: RADHA Kelsey Diagnoses at Discharge Discharge Diagnosis (1) Premature ventricular contractions: Status: Acute (2) Left ventricular dysfunction: Status: Acute (3) Shortness of breath: Status: Acute (4) CAD (coronary artery disease): Status: Acute Reason for Visit Reason for Visit: I49.3, I51.9 Brief History: Chemo is 73 and is having some fatigue, shortness of breath and palpitations several weeks ago or months ago. His primary care physician ordered a echo. He was found to have an ejection fraction of about 40% with global hypokinesis. He was sent to me where I placed him on an NAVID inhibitor and a beta-ellyn. He struggled with the diagnosis and trying to sort through it in his own mind. I saw him back in follow-up last week when he was still frustrated and a little fearful of the diagnosis. I was not concerned about multilevel coronary disease because of the global nature of the hypokinesis he wanted to proceed with a ngiography in order to be sure. Hospital Course Hospital Course His cardiac catheterization was done through the right radial artery. His left main is normal, LAD is essentially normal and the right coronary artery is essentially normal. He had a 40 to 50% stenosis in the proximal circumflex. More distally at the bifurcation of 2 marginal branches there was a 50% stenosis of the first marginal branch and a 95% stenosis of the second marginal branch. Because of the severity of the second marginal branch I decided to try to intervene. The guide support was poor. I was able to cross the lesion with a wire but a balloon would not pass the lesion. I placed a guide liner. I then put a 1.5 mm balloon down. This barely cross the lesion. I performed angioplasty but was never able to get any other balloon across the lesion. Because he does not have multivessel disease, is asymptomatic and his cardiomyopathy is global I decided to stop the procedure and make an attempt to treat him medically. 1 could go back at some point and readdress this from the groin to get better guide support but as long as he remains stable, free of pain and is able to lead a normal life I would continue to treat him medically. There were no complications. I added aspirin low-dose. Physical Exam Narrative: GENERAL: In general he looks and feels well HEENT: Exam within normal limits. [] NECK: Supple without jugular vein distention. The carotid upstroke is normal without bruits. [] BACK: Exam normal. [] LUNGS: Clear. [] HEART: Regular rate and rhythm. [] ABDOMEN: Benign without organomegaly or tenderness. [] EXTREMITIES: No edema. Right radial artery entry site is flat, dry without bleeding or hematoma NEUROLOGIC: Exam normal. [] SKIN: Unremarkable. [] Discharge Data Studies Completed and Pending Completed Studies During Hospitalization Category Date Time Status CHEMICAL TESTER request for service Routine Exams 02/07/24 08:30 Completed Laboratory Results WBC 6.65 10^3/uL (3.29-11.43) 02/07/24 07:44 RBC 4.42 10^6/uL (3.85-5.65) 02/07/24 07:44 Hgb 13.70 g/dL (11.27-16.99) 02/07/24 07:44 Hct 43.4 % (37-53) 02/07/24 07:44 MCV 98.2 fl (82-101) 02/07/24 07:44 MCH 31.0 pg (27-33) 02/07/24 07:44 MCHC 31.6 g/dL (30-55) 02/07/24 07:44 RDW 12.8 % (12.1-15.1) 02/07/24 07:44 Plt Count 115 10^3/cmm (157-399) L 02/07/24 07:44 MPV 10.4 fL (7.4-10.4) 02/07/24 07:44 Neut % (Auto) 31.3 % 02/07/24 07:44 Lymph % (Auto) 60.3 % 02/07/24 07:44 [place] % (Auto) 5.6 % 02/07/24 07:44 Eos % (Auto) 2.3 % 02/07/24 07:44 Baso % (Auto) 0.3 % 02/07/24 07:44 Neut # (Auto) 2.09 10^3/uL (1.8-7.7) 02/07/24 07:44 Lymph # (Auto) 4.0 10^3/uL (0.8-4.8) 02/07/24 07:44 [place] # (Auto) 0.4 10^3/uL (0.2-0.9) 02/07/24 07:44 Eos # (Auto) 0.2 10^3/uL (0.0-0.8) 02/07/24 07:44 Baso # (Auto) 0.0 10^3/uL (0.0-0.1) 02/07/24 07:44 Nucleated RBC % (auto) 0 % 02/07/24 07:44 Nucleated RBCs # 0.0 /100WBC 02/07/24 07:44 Sodium 142 mmol/L (136-145) 02/07/24 07:44 Potassium 4.9 mmol/L (3.5-5.1) 02/07/24 07:44 Chloride 106 mmol/L (98-107) 02/07/24 07:44 Carbon Dioxide 28 mmol/L (22-29) 02/07/24 07:44 Anion Gap 12.9 (5-19) 02/07/24 07:44 BUN 24 mg/dL (8-23) H 02/07/24 07:44 Creatinine 0.9 mg/dL (0.7-1.2) 02/07/24 07:44 GFR Calculation Not Reportable 02/07/24 07:44 Glucose 100 mg/dL (65-115) 02/07/24 07:44 Calculated Osmolality 298 mOsm/kg (285-295) H 02/07/24 07:44 Calcium 8.6 mg/dL (8.5-10.5) 02/07/24 07:44 Procedures Performed Coronary angiography, angioplasty second obtuse marginal branch Vitals Last Vital Signs Temp 97.9 F 02/08/24 05:37 Pulse 68 02/08/24 06:00 Resp 17 02/08/24 05:37 BP 116/81 02/08/24 05:37 Pulse Ox 97 02/08/24 05:37 O2 Del Method Room Air 02/08/24 05:37 Discharge Plan Discharge Patient Disposition: Home Prescriptions: New aspirin [Adult Low Dose Aspirin] 81 mg tablet,delayed release (DR/EC) 81 mg PO DAILY Qty: 100 0RF Continued fluticasone propionate [Allergy Relief (fluticasone)] 50 mcg/actuation spray,suspension 2 spray INTRANASAL DAILY Rx Instructions: administer into each nostril polyethylene glycol 3350 [Miralax] 17 gram powder in packet 17 g PO BID docusate sodium 100 mg capsule 100 mg PO BID esomeprazole magnesium 20 mg capsule,delayed release(DR/EC) 20 mg PO DAILY tamsulosin [Flomax] 0.4 mg capsule 0.4 mg PO DAILY lisinopril 5 mg tablet 5 mg PO DAILY metoprolol succinate 25 mg tablet extended release 24 hr 25 mg PO DAILY simvastatin [Zocor] 10 mg tablet 10 mg PO DAILY prednisone 10 mg tablet 10 mg PO DAILY PRN (Reason: for flares) Qty: 30 0RF Rx Instructions: 1-2 tabs as needed for 5-7 days Humira Pen 40 mg/0.8 mL pen injector kit 40 mg SUBCUT Q14D Qty: 2 3RF fluticasone propion-salmeterol [Advair Diskus] 100-50 mcg/dose blister with device 1 inh inhalation BID Qty: 60 6RF Discharge Orders: Discharge Order (Routine); Ordered 02/08/24 Ordered By: Haile Pressley Referrals: Dimple Amador FNP [Primary Care Provider] - Jacki Villanueva FNP [Nurse Practitioner] - 02/21/24 3:00 pm Diet: Cardiac Activity: Increase activity as tolerated and Limit activity as instructed Activity Restrictions/Additional Instructions: No lifting over 5 pounds for 2 days. Discharge Attestations Time Spent in Discharge Care*: less than 30 min Status at Discharge: Cognitive status at discharge: cognitively intact , Behavioral status at discharge: cooperative , Quality Metrics Clinical Quality Measures [ No reported AMI, CVA or VTE this stay] Coding Level of Care Code 08763 Total time (in minutes) for Discharge: 25 Diagnoses Premature ventricular contractions I49.3 Left ventricular dysfunction I51.9 Shortness of breath R06.02 CAD (coronary artery disease) I25.10
[2024-02-08] MEDS: albuterol 2.5 mg/3 mL Neb INHALATION (07:42)
[2024-02-08] MEDS: budesonide 0.5 mg/2 mL Neb INHALATION (07:42)
[2024-02-08] MEDS: tamsulosin 0.4 mg Capsule 0.400000000000000022 MG PO (09:03)
== END 2024-02-08 09:36 | disposition home or self-care (01) ==
LOC: CCL 07:16 → CSU 10:23
PROVIDERS: PCP Nurse Practitioner Family; Visit Provider Internal Medicine Cardiovascular Disease
DX: I49.3 Ventricular premature depolarization (principal); I51.9 Heart disease, unspecified; R06.02 Shortness of breath; I25.10 Atherosclerotic heart disease of native coronary artery without angina pectoris; Z87.891 Personal history of nicotine dependence
CPT/HCPCS: 36415; 80048; 85025; 92920; 93454; 94640; 96374; 96375; 99152; 99153; C1725; C1769; C1874; C1887; C1894; J1644; J2250; J3010; J3490; J7030; J7613; J7626; Q0163; Q9967

== ENCOUNTER → 2024-02-28 10:26 | Outpatient (BNVA) | payer MEDICARE, OTHER, SELFPAY | PROVIDERS: PCP Nurse Practitioner Family; Visit Provider Anesthesiology Pain Medicine | DX: M19.90 Unspecified osteoarthritis, unspecified site; M47.816 Spondylosis without myelopathy or radiculopathy, lumbar region; M51.36 Other intervertebral disc degeneration, lumbar region; M25.551 Pain in right hip | CPT/HCPCS: 99214 ==

== ENCOUNTER → 2024-03-06 08:25 | Outpatient (BNVA) | payer MEDICARE, OTHER, SELFPAY | PROVIDERS: PCP Nurse Practitioner Family; Visit Provider Internal Medicine Pulmonary Disease | DX: J45.909 Unspecified asthma, uncomplicated (principal); M54.16 Radiculopathy, lumbar region | CPT/HCPCS: 64483; 64484; 99214; J1100; J3490 ==

== ENCOUNTER → 2024-03-13 13:11 | Outpatient (BNVA) | payer MEDICARE, OTHER, SELFPAY | PROVIDERS: PCP Nurse Practitioner Family; Visit Provider Nurse Practitioner Family | DX: D48.5 Neoplasm of uncertain behavior of skin (principal); L57.0 Actinic keratosis; L82.0 Inflamed seborrheic keratosis; S90.911A Unspecified superficial injury of right ankle, initial encounter; X58.XXXA Exposure to other specified factors, initial encounter; L81.4 Other melanin hyperpigmentation; Z85.828 Personal history of other malignant neoplasm of skin | CPT/HCPCS: 11102; 17000; 17110; 99213 ==

== ENCOUNTER → 2024-04-15 11:39 | Outpatient (BNVA) | payer MEDICARE, OTHER, SELFPAY | PROVIDERS: PCP Nurse Practitioner Family; Visit Provider Internal Medicine Cardiovascular Disease | DX: I49.3 Ventricular premature depolarization (principal); I51.9 Heart disease, unspecified; I25.10 Atherosclerotic heart disease of native coronary artery without angina pectoris; Z87.891 Personal history of nicotine dependence | CPT/HCPCS: 99213 ==

== ENCOUNTER → 2024-06-06 15:21 | Outpatient (BNVA) | payer MEDICARE, OTHER, SELFPAY | PROVIDERS: PCP Nurse Practitioner Family; Referring Provider Nurse Practitioner Family; Visit Provider Psychiatry & Neurology Neurology | DX: R20.0 Anesthesia of skin (principal); G60.8 Other hereditary and idiopathic neuropathies | CPT/HCPCS: 95910 ==

== ENCOUNTER 2024-06-11 12:58 | Outpatient (RCR) | payer MEDICARE, OTHER, SELFPAY | END 2024-06-15 18:00 | disposition home or self-care (01) | LOC: SPT 12:58 | PROVIDERS: PCP Nurse Practitioner Family; Visit Provider Nurse Practitioner Family | DX: L57.0 Actinic keratosis (principal); L81.4 Other melanin hyperpigmentation; L82.1 Other seborrheic keratosis; Z85.828 Personal history of other malignant neoplasm of skin; M54.50 Low back pain, unspecified; G89.29 Other chronic pain | CPT/HCPCS: 17000; 97161; 99213 ==

== ENCOUNTER 2024-06-16 06:00 | Outpatient (RCR) | payer MEDICARE, OTHER, SELFPAY | END 2024-07-12 23:59 | disposition home or self-care (01) | LOC: SPT 06:00 | PROVIDERS: PCP Nurse Practitioner Family; Visit Provider Nurse Practitioner Family | DX: M54.50 Low back pain, unspecified; G89.29 Other chronic pain | CPT/HCPCS: 97110; 97530 ==

== ENCOUNTER 2024-09-03 13:29 | Outpatient (CLI) | payer MEDICARE, OTHER, SELFPAY ==
--- NOTE | 2024-09-03 13:30 | USCV_ITS ---
Rizwan Lobato Age: 74 Gender: M : 1950 Exam Date: 09/03/2024 13:49 Ordering Phys: Rm Hubbard MD ([email or web address]) Technologist: BILLY Exam Location: [facility] [place] Indication: CARDIOMYOPATHY BP: 110 / 60 HR: 65 Rhythm: Sinus Technical Quality: Adequate MEASUREMENTS (Male / Female) Normal Values 2D ECHO LV Diastolic Diameter PLAX 5.4 cm 4.2 - 5.9 / 3.9 - 5.3 cm IVS Diastolic Thickness 1.1 cm 0.6 - 1.0 / 0.6 - 0.9 cm IVS Systolic Thickness 1.6 cm LVPW Diastolic Thickness 1.9 cm 0.6 - 1.0 / 0.6 - 0.9 cm LVPW Systolic Thickness 2.1 cm LVOT Diameter 2.0 cm LV Ejection Fraction 2D Teich 61.2 % LV Ejection Fraction MOD 4C 64.5 % LV Ejection Fraction MOD 2C 54.2 % LV Ejection Fraction 2C AL 54.5 % LA Diameter 2.7 cm RA Systolic Volume 4C AL 40.5 ml RA Systolic Volume 4C MOD 39.6 ml LA Sys Volume AL 56.1 cm cubed LA Sys Volume Index AL 24.6 cm cubed/m squared Aorta at Sinotubular Diameter 2.6 cm M-MODE LA Ao Ratio MM 0.9 AV Cusp Separation MM 1.7 cm DOPPLER AV Peak Velocity 152.0 cm/s LVOT Peak Velocity 93.0 cm/s AV Area Cont Eq vti 2.0 cm squared AV Area Cont Eq pk 1.9 cm squared MV Peak Velocity 87.0 cm/s MV Area PHT 3.3 cm squared Mitral E to A Ratio 1.6 TR Peak Velocity 223.0 cm/s TR Peak Gradient 19.9 mmHg TR Mean Velocity 184.0 cm/s TR Mean Gradient 14.4 mmHg TR Velocity Time Integral 82.8 cm TV Peak E Velocity 36.0 cm/s Right Atrial Pressure 3.0 mmHg Pulmonary Artery Systolic Pressu 22.9 mmHg PV Peak Velocity 94.5 cm/s RV Ejection Time 0.4 s FINDINGS Left Ventricle Normal left ventricular size, systolic function and wall thickness, with no regional wall motion abnormalities. Left ventricular ejection fraction is estimated at 55 %. Grade II/IV diastolic dysfunction, moderately elevated filling pressures. Right Ventricle The right ventricle is normal in size and function. Right Atrium The right atrium is normal in size. Left Atrium Moderately increased left atrial size. Mitral Valve Mildly thickened mitral valve. No mitral valve stenosis. Trace mitral valve regurgitation. Aortic Valve Structurally normal aortic valve without significant sclerosis or stenosis. There is no aortic regurgitation. Tricuspid Valve Trace tricuspid valve regurgitation. Pulmonic Valve Structurally normal pulmonic valve without significant stenosis. There is no pulmonic regurgitation. Pericardium Normal pericardium without effusion. Aorta Normal ascending aorta dimension. IVC The inferior vena cava appears normal. CONCLUSIONS Normal left ventricular size, systolic function and wall thickness, with no regional wall motion abnormalities. Left ventricular ejection fraction is estimated at 55 %. Grade II/IV diastolic dysfunction, moderately elevated filling pressures. No significant valve abnormalities. There is no pericardial effusion. Pulmonary artery systolic pressure is within normal limits. Right atrial pressure is around 5 mm of mercury. Rm Hubbard MD (Electronically Signed) Final Date: 05 September 2024 00:02 S
== END 2024-09-03 13:30 | disposition home or self-care (01) ==
PROVIDERS: PCP Nurse Practitioner Family; Visit Provider Internal Medicine Cardiovascular Disease
DX: I50.30 Unspecified diastolic (congestive) heart failure (principal); I51.7 Cardiomegaly; I51.9 Heart disease, unspecified; I42.9 Cardiomyopathy, unspecified
CPT/HCPCS: 93306

== ENCOUNTER → 2024-10-24 15:02 | Outpatient (BNVA) | payer MEDICARE, OTHER, SELFPAY | PROVIDERS: PCP Nurse Practitioner Family; Visit Provider Internal Medicine Cardiovascular Disease | DX: I25.10 Atherosclerotic heart disease of native coronary artery without angina pectoris (principal); I51.9 Heart disease, unspecified; J44.9 Chronic obstructive pulmonary disease, unspecified; R53.83 Other fatigue; I42.8 Other cardiomyopathies; Z87.891 Personal history of nicotine dependence | CPT/HCPCS: 99214 ==

== ENCOUNTER → 2024-11-04 08:59 | Outpatient (BNVA) | payer MEDICARE, OTHER, SELFPAY | PROVIDERS: PCP Nurse Practitioner Family; Visit Provider Nurse Practitioner Family | DX: L57.8 Other skin changes due to chronic exposure to nonionizing radiation (principal); L81.4 Other melanin hyperpigmentation; L82.1 Other seborrheic keratosis; Z08 Encounter for follow-up examination after completed treatment for malignant neoplasm; Z85.828 Personal history of other malignant neoplasm of skin; L57.0 Actinic keratosis | CPT/HCPCS: 17004; 99213 ==

== ENCOUNTER → 2024-11-25 12:52 | Outpatient (BNVA) | payer MEDICARE, OTHER, SELFPAY | PROVIDERS: PCP Nurse Practitioner Family; Visit Provider Dermatology | DX: L57.0 Actinic keratosis (principal) | CPT/HCPCS: 96573 ==

== ENCOUNTER → 2024-11-27 11:27 | Outpatient (BNVA) | payer MEDICARE, OTHER, SELFPAY | PROVIDERS: PCP Nurse Practitioner Family; Visit Provider Dermatology | DX: L57.0 Actinic keratosis (principal) | CPT/HCPCS: 96573 ==

== ENCOUNTER → 2025-01-09 11:24 | Outpatient (BNVA) | payer MEDICARE, OTHER, SELFPAY | PROVIDERS: PCP Nurse Practitioner Family; Visit Provider Internal Medicine Rheumatology | DX: M05.79 Rheumatoid arthritis with rheumatoid factor of multiple sites without organ or systems involvement (principal); Z79.899 Other long term (current) drug therapy; Z96.659 Presence of unspecified artificial knee joint; Z96.641 Presence of right artificial hip joint | CPT/HCPCS: 36415; 80076; 82565; 85025; 85651; 86140; 99214 ==

== ENCOUNTER 2025-01-28 08:59 | Outpatient (CLI) | payer MEDICARE, OTHER, SELFPAY ==
--- NOTE | 2025-01-28 09:01 | XRR_ITS ---
PROCEDURE INFORMATION: Exam: XR Chest Exam date and time: 01/28/2025 9:08 AM Age: 74 years old Clinical indication: Condition or disease; Lung condition and disease; Copd TECHNIQUE: Imaging protocol: Radiologic exam of the chest. Views: 2 views. COMPARISON: CR XR chest 2V* [id number] 05/26/2021 9:12 AM FINDINGS: Lungs: Lungs are hyperinflated consistent with COPD. There are no infiltrates or overt CHF. Pleural spaces: Unremarkable. No pleural effusion. No pneumothorax. Heart/Mediastinum: Unremarkable. No cardiomegaly. Bones/joints: Unremarkable for age. XR/XR chest 2V* [id number] IMPRESSION: COPD otherwise negative chest.
[2025-01-28 09:33] VITALS: PULSE 58; RESP 18; O2SAT 99
[2025-01-28] MEDS: albuterol 2.5 mg/3 mL Neb INHALATION (09:33)
== END 2025-01-28 09:00 | disposition home or self-care (01) ==
PROVIDERS: PCP Nurse Practitioner Family; Visit Provider Nurse Practitioner Family
DX: J44.9 Chronic obstructive pulmonary disease, unspecified (principal)
CPT/HCPCS: 71046; 94060; 94726; 94729; J7611

== ENCOUNTER → 2025-02-03 14:29 | Outpatient (BNVA) | payer MEDICARE, OTHER, SELFPAY | PROVIDERS: PCP Nurse Practitioner Family; Visit Provider Anesthesiology Pain Medicine | DX: M47.816 Spondylosis without myelopathy or radiculopathy, lumbar region (principal); M54.9 Dorsalgia, unspecified; R03.0 Elevated blood-pressure reading, without diagnosis of hypertension; M19.90 Unspecified osteoarthritis, unspecified site; M16.0 Bilateral primary osteoarthritis of hip; Z87.891 Personal history of nicotine dependence | CPT/HCPCS: 99214 ==

== ENCOUNTER → 2025-02-06 08:37 | Outpatient (BNVA) | payer MEDICARE, OTHER, SELFPAY | PROVIDERS: PCP Nurse Practitioner Family; Visit Provider Internal Medicine Cardiovascular Disease | DX: R00.1 Bradycardia, unspecified (principal); I49.8 Other specified cardiac arrhythmias; I49.3 Ventricular premature depolarization; I47.20 Ventricular tachycardia, unspecified; I49.1 Atrial premature depolarization; I47.10 Supraventricular tachycardia, unspecified | CPT/HCPCS: 93242 ==

== ENCOUNTER → 2025-02-17 14:26 | Outpatient (BNVA) | payer MEDICARE, OTHER, SELFPAY | PROVIDERS: PCP Nurse Practitioner Family; Visit Provider Anesthesiology Pain Medicine | DX: M54.9 Dorsalgia, unspecified (principal); M47.816 Spondylosis without myelopathy or radiculopathy, lumbar region; G60.8 Other hereditary and idiopathic neuropathies; I51.9 Heart disease, unspecified; I49.3 Ventricular premature depolarization | CPT/HCPCS: 99215 ==

== ENCOUNTER 2025-02-17 15:15 | Emergency (ER) | payer MEDICARE, OTHER, SELFPAY ==
[2025-02-17 15:15] VITALS: BP 134/78; PULSE 38; TEMP 36.7; O2SAT 98; BMI 27.6
[2025-02-17 15:29] VITALS: PULSE 70; O2SAT 96
--- NOTE | 2025-02-17 15:53 | ECG_ITS ---
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 Measurements Intervals [place] Rate: 77 P: 91 UT: 181 QRS: 20 QRSD: 90 T: 54 QT: 395 QTc: 450 Interpretive Statements SINUS RHYTHM WITH FREQUENT VENTRICULAR PREMATURE COMPLEXES NONSPECIFIC ST & T-WAVE ABNORMALITY ABNORMAL RHYTHM ECG INTERPRETATION BASED ON A DEFAULT AGE OF 40 YEARS Compared to ECG 11/17/2022 01:47:08 Possible ischemia no longer present T-wave abnormality still present Electronically Signed On 02-19-2025 23:30:30 CDT by Franky Sterling M.D. [id number] [id number]
--- NOTE | 2025-02-17 16:00 | ED_ITS ---
HPI - Arrhythmia/Palpitations 2 General: Chief Complaint: Arrhythmia/Palpitations Stated Complaint: Sent by [facility] nurse low pulse rate Time Seen by Provider: 02/17/25 15:45 History of Present Illness: 74-year-old male presents with concerns for bradycardic episodes. Been going on for a while and he recently wore a Holter monitor. Patient was at pain management when he had an episode of bradycardia. Patient's cardiology nurse recommended he come to the ER. Patient reports that he has been having some increased fatigue recently and more frequent episodes of bradycardia. Associated symptoms: Deny nausea or vomiting Related Data Home Medications ?Medication ?Instructions ?Recorded ?Confirmed docusate sodium 100 mg capsule 100 mg PO BID 08/06/21 02/17/25 polyethylene glycol 3350 17 gram 17 g PO BID 08/06/21 02/17/25 oral powder packet (Miralax) esomeprazole magnesium 20 mg 20 mg PO DAILY 06/02/22 0 02/17/25 capsule,delayed release simvastatin 10 mg tablet (Zocor) 10 mg PO QPM 02/02/24 02/17/25 fluticasone propionate 50 2 spray intranasal DAILY PRN 10/24/24 02/17/25 mcg/actuation nasal allergies spray,suspension (Allergy Relief (fluticasone)) lisinopril 2.5 mg tablet 2.5 mg PO DAILY 02/17/2503/09 Previous Rx's ?Medication ?Instructions ?Recorded aspirin 81 mg tablet,delayed 81 mg PO DAILY #100 tabs 02/08/24 release (Adult Low Dose Aspirin) metoprolol succinate 25 mg 12.5 mg (1/2 x 25 mg) PO DA REFUGIO #45 07/25/24 tablet,extended release 24 hr tabs fluticasone 100 mcg-salmeterol 50 1 inh inhalation BID #60 ea 01/17/25 mcg/dose blistr powdr for inhalation (Advair Diskus) Allergies Allergy/AdvReac Type Severity Reaction Status Date / Time hydromorphone (From Dilaudid) AdvReac Severe ADR/ALGY-Hy Verified 02/17/25 15:29 potension Review of Systems 2 Const: Reports: fatigue Card: Reports: irregular heart rhythm and dyspnea on exertion; Denies: chest pain Resp: Denies: dyspnea, productive cough or non-productive cough GI: Denies: abdominal pain, nausea or vomiting Musc: Denies: neck pain or back pain Skin/Breast: Denies: rash or pruritus PFSH ED 2 PFSH: Medical History CAD (coronary artery disease) Left ventricular dysfunction Premature ventricular contractions Elevated troponin Small bowel obstruction Aftercare following right hip joint replacement surgery High risk medication use Seropositive rheumatoid arthritis of multiple sites Small bowel obstruction Vomiting Chronic low back pain Hypercholesterolemia Atopic dermatitis Elevated liver enzymes Barretts esophagus Testosterone deficiency Hiatal hernia with GERD Hyperglycemia Surgical History Status post total hip replacement, right Total knee replacement status Status post arthroscopy of left shoulder History of appendectomy History of bowel resection History of hernia repair Family History Other Cancer Denies family history of Anesthesia complication Bleeding disorder Social History Smoking and tobacco/nicotine status: former use of tobacco/nicotine Quit status (tobacco/nicotine): has quit using Year quit tobacco: 1991 Former quit date comment: Hx of 1 PPD x 21 Years Second hand smoke exposure: No Alcohol intake: current Alcohol intake frequency: few times a month Alcohol type: beer Substance/Drug Use: never Lives independently: Yes Household members: spouse Marital status: Current occupational status: retired 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 Do you think of yourself as: Straight/Heterosexual Current gender identity: Male Physical Exam 2 Const: COMMON NORMALS: no acute distress, patient oriented x3 and alert Resp: COMMON NORMALS: normal respiratory effort, No retractions and clear to auscultation bilaterally AUSCULTATION: clear to auscultation bilaterally Cardio: COMMON NORMALS: regular rate RATE: regular rate RHYTHM: abnormal rhythm irregularly irregular Neuro: COMMON NORMALS: patient oriented x3, moves all extremities, no focal motor deficits, no sensory deficits noted and gait normal S ENSORIUM/ORIENTATION: Yes alert Psych: COMMON NORMALS: mental status grossly normal, Normal thought process present, cooperative, normal affect and speech normal SPEECH: Yes normal speech THOUGHT PROCESS: Normal thought process present Skin: COMMON NORMALS: no rashes or lesions noted and turgor normal GENERAL SKIN EXAM: no rashes or lesions noted and turgor normal Course 2 Vital Signs: Vital signs: Vital Signs Temperature 98.1 F 02/17/25 15:15 Pulse Rate 67 02/17/25 18:48 Blood Pressure 120/80 02/17/25 18:48 Pulse Oximetry 99 02/17/25 18:48 Oxygen Delivery Me thod Room Air 02/17/25 15:15 MDM - Arrhythmia/Palpitations Medical Decision Making Patient's diagnostic studies are reviewed and interpreted by me. Patient had no acute findings on his labs with 2 negative troponins. Patient had 2 EKGs that showed heart rates in the 80s. He does have sinus rhythm with frequent PVCs. Patient did not have any episodes of bradycardia while in the ER. He remained asymptomatic. Patient will be discharged with recommendations to follow-up with his driller's offsider and to call them tomorrow morning to make them aware of his visit. P he was stable upon discharge. Lab Data 02/17/25 15:50 02/17/25 15:50 Laboratory Results WBC 12.18 10^3/uL (3.29-11.43) H 02/17/25 15:50 RBC 4.27 10^6/uL (3.85-5.65) 02/17/25 15:50 Hgb 13.50 g/dL (11.27-16.99) 02/17/25 15:50 Hct 41.9 % (37-53) 02/17/25 15:50 MCV 98.1 fl (82-101) 02/17/25 15:50 MCH 31.6 pg (27-33) 02/17/25 15:50 MCHC 32.2 g/dL (30-55) 02/17/25 15:50 RDW 12.5 % (12.1-15.1) 02/17/25 15:50 Plt Count 127 10^3/cmm (157-399) L 02/17/25 15:50 MPV 10.6 fL (7.4-10.4) H 02/17/25 15:50 Neut % (Auto) 33.6 % 02/17/25 15:50 Lymph % (Auto) 58.6 % 02/17/25 15:50 [place] % (Auto) 4.9 % 02/17/25 15:50 Eos % (Auto) 2.5 % 02/17/25 15:50 Baso % (Auto) 0.2 % 02/17/25 15:50 Neut # (Auto) 4.09 10^3/uL (1.8-7.7) 02/17/25 15:50 Lymph # (Auto) 7.1 10^3/uL (0.8-4.8) H 02/17/25 15:50 [place] # (Auto) 0.6 10^3/uL (0.2-0.9) 02/17/25 15:50 Eos # (Auto) 0.3 10^3/uL (0.0-0.8) 02/17/25 15:50 Baso # (Auto) 0.0 10^3/uL (0.0-0.1) 02/17/25 15:50 Nucleated RBC % (auto) 0 % 02/17/25 15:50 Nucleated RBCs # 0.0 /100WBC 02/17/25 15:50 Sodium 139 mmol/L (136-145) 02/17/25 15:50 Potassium 5.0 mmol/L (3.5-5.1) 02/17/25 15:50 Chloride 101 mmol/L (98-107) 02/17/25 15:50 Carbon Dioxide 28 mmol/L (22-29) 02/17/25 15:50 Anion Gap 15.0 (5-19) 02/17/25 15:50 BUN 34 mg/dL (8-23) H 02/17/25 15:50 Creatinine 1.3 mg/dL (0.7-1.2) H 02/17/25 15:50 GFR Calculation Not Reportable 02/17/25 15:50 Glucose 113 mg/dL (65-115) 02/17/25 15:50 Calculated Osmolality 296 mOsm/kg (285-295) H 02/17/25 15:50 Calcium 9.4 mg/dL (8.5-10.5) 02/17/25 15:50 Magnesium 1.9 mg/dL (1.7-2.3) 02/17/25 15:50 Total Bilirubin 0.8 mg/dL (0.15-1.2) 02/17/25 15:50 AST 28 U/L (0-40) 02/17/25 15:50 ALT 20 U/L (0-41) 02/17/25 15:50 Alkaline Phosphatase 86 U/L (40-130) 02/17/25 15:50 Troponin T Baseline 20 ng/L (0-15) H 02/17/25 15:50 Troponin T 120 Minute 17.92 ng/L (0-15) H 02/17/25 17:46 Delta Troponin T -2.08 ABS# (0-10) L 02/17/25 17:46 Total Protein 6.2 g/dL (6.6-8.7) L 02/17/25 15:50 Albumin 4.2 g/dL (3.5-5.2) 02/17/25 15:50 Globulin 2.0 g/dL (1.3-4.6) 02/17/25 15:50 No radiology studies performed this visit Discharge Plan Discharge Patient Disposition: Home Clinical Impression: Bradycardia Condition: Stable Prescriptions: No Action polyethylene glycol 3350 [Miralax] 17 gram powder in packet 17 g PO BID docusate sodium 100 mg capsule 100 mg PO BID fluticasone propionate [Allergy Relief (fluticasone)] 50 mcg/actuation spray,suspension 2 spray INTRANASAL DAILY PRN (Reason: allergies) Rx Instructions: administer into each nostril esomeprazole magnesium 20 mg capsule,delayed release(DR/EC) 20 mg PO DAILY simvastatin [Zocor] 10 mg tablet 10 mg PO QPM metoprolol succinate 25 mg tablet extended release 24 hr 12.5 mg PO DAILY Qty: 45 2RF fluticasone propion-salmeterol [Advair Diskus] 100-50 mcg/dose blister with device 1 inh inhalation BID Qty: 60 6RF lisinopril 2.5 mg tablet 2.5 mg PO DAILY aspirin [Adult Low Dose Aspirin] 81 mg tablet,delayed release (DR/EC) 81 mg PO DAILY Qty: 100 0RF Discharge Orders: Discharge ED (Routine); Ordered 02/17/25 Ordered By: Sandip Henderson Referrals: Dimple Amador FNP [Primary Care Provider, Unknown] Discharge Diet: Usual diet Discharge Activity: Resume usual activity Patient Instructions: Bradycardia (ED), Opioid Safety, Pain Management Activity Restrictions/Additional Instructions: Please follow-up with cardiology office tomorrow for further recommendations. Return to the ER with any concerns. Print Language: Indonesian Coding Level of Care Code ED Mottler Operator for Veronika Laguerre
[2025-02-17 16:01] LABS: Basophils % 0.2 %; Eosinophils # 0.3 10^3/uL (0.0-0.8); Eosinophils % 2.5 %; Hematocrit 41.9 % (37-53); Lymphocytes # 7.1 10^3/uL (0.8-4.8); Lymphocytes % 58.6 %; Mean Corpuscular HGB Conc 32.2 g/dL (30-55); Mean Corpuscular Hemoglobin 31.6 pg (27-33); Mean Corpuscular Volume 98.1 fl (82-101); Mean Platelet Volume 10.6 fL (7.4-10.4); Monocytes # 0.6 10^3/uL (0.2-0.9); Monocytes % 4.9 %; Neutrophils # 4.09 10^3/uL (1.8-7.7); Neutrophils % 33.6 %; Nucleated Red Blood Cells % 0 %; Platelet Count 127 10^3/cmm (157-399); Red Blood Count 4.27 10^6/uL (3.85-5.65); Red Cell Distribution Width 12.5 % (12.1-15.1); White Blood Count 12.18 10^3/uL (3.29-11.43)
[2025-02-17 16:24] LABS: Troponin(5th) Baseline 20 ng/L (0-15)
[2025-02-17 16:26] LABS: Alanine Aminotransferase 20 U/L (0-41); Albumin Level 4.2 g/dL (3.5-5.2); Alkaline Phosphatase 86 U/L (40-130); Aspartate Amino Transferase 28 U/L (0-40); Blood Urea Nitrogen 34 mg/dL (8-23); Calcium 9.4 mg/dL (8.5-10.5); Carbon Dioxide 28 mmol/L (22-29); Chloride 101 mmol/L (98-107); Creatinine Clr Calc Pharmacy 63.2268; Glucose 113 mg/dL (65-115); Magnesium 1.9 mg/dL (1.7-2.3); Osmolality Calculated 296 mOsm/kg (285-295); Sodium 139 mmol/L (136-145); Total Bilirubin 0.8 mg/dL (0.15-1.2); Total Protein 6.2 g/dL (6.6-8.7)
[2025-02-17 16:40] VITALS: BP 133/73; PULSE 92
[2025-02-17 16:41] LABS: Slide Review Slide Review Perform
--- NOTE | 2025-02-17 17:55 | ECG_ITS ---
[facility] Date: 2025-02-17 Pat Name: Rizwan Lobato Department: Room: Gender: Male Hydramatic Specialist: : 1950 Requested By: Sandip Henderson Order Number: [id number] Adolfo MD: Franky Sterling M.D. Measurements Intervals [place] Rate: 80 P: 79 [place]: 217 QRS: 55 QRSD: 98 T: 54 QT: 411 QTc: 476 Interpretive Statements Normal sinus rhythm with frequent ventricular and supraventricular ectopics NONSPECIFIC ST & T-WAVE ABNORMALITY CRITICAL TEST RESULT Compared to ECG 02/17/2025 15:24:17 Sinus rhythm no longer present Ventricular premature complex(es) no longer present T-wave abnormality still present Electronically Signed On 02-19-2025 23:43:47 CDT by Franky Sterling M.D. [id number] [id number]
[2025-02-17 18:12] LABS: Troponin 5 2HR 17.92 ng/L (0-15)
[2025-02-17 18:13] LABS: Troponin 5 2HR Delta -2.08 ABS# (0-10)
[2025-02-17 18:48] VITALS: BP 120/80; PULSE 67; O2SAT 99
== END 2025-02-17 18:49 | disposition home or self-care (01) ==
PROVIDERS: Emergency Provider Student in an Organized Health Care Education/Training Program; PCP Nurse Practitioner Family
DX: R00.1 Bradycardia, unspecified (principal); Z79.82 Long term (current) use of aspirin; Z87.891 Personal history of nicotine dependence; I25.10 Atherosclerotic heart disease of native coronary artery without angina pectoris
CPT/HCPCS: 36415; 80053; 83735; 84484; 85025; 93005; 99284

== ENCOUNTER → 2025-02-25 14:10 | Outpatient (BNVA) | payer MEDICARE, OTHER, SELFPAY | PROVIDERS: PCP Nurse Practitioner Family; Visit Provider Nurse Practitioner Family | DX: I25.10 Atherosclerotic heart disease of native coronary artery without angina pectoris (principal); R00.1 Bradycardia, unspecified; I49.3 Ventricular premature depolarization | CPT/HCPCS: 36415; 80048; 83880; 84439; 84443; 85025; 93005; 99214 ==

== ENCOUNTER 2025-03-03 09:20 | Outpatient (CLI) | payer MEDICARE, OTHER, SELFPAY ==
--- NOTE | 2025-03-03 | ECG_ITS ---
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 The perfusion scan will be documented separately. DATA: Baseline heart rate was 81 beats per minute. Baseline blood pressure was 118/88 millimeters of mercury. Target heart rate was 147. Maximum heart rate achieved was 94. which was 63% of the predicted target heart rate. Maximum blood pressure was 125/89 millimeters of mercury. The reason for ending the test was completion of the protocol. The patient did not experience any symptoms. ELECTROCARDIOGRAM: BASELINE: Sinus rhythm. Normal axis. Frequent PVCs noted, poor R wave progression in the anterior leads could be old NE, inferolateral nonspecific ST changes EXERCISE: After Lexiscan injection, no ST-T changes suggestive of ischemic noted. No arrhythmia noted. CONCLUSION: Please note due to baseline abnormality of the EKG specificity and sensitivity of the EKG portion of LexiScan MIBI stress test will be low 1. EKG not suggestive of ischemia 2. Lexiscan injection unremarkable. 3. Perfusion scan will be documented separately. Electronically Signed On 03-18-2025 23:03:15 CDT by ANTONIETA PATHAK [email or web address] [id number]
[2025-03-03 10:06] VITALS: BMI 27.6
--- NOTE | 2025-03-03 10:06 | NMCV_ITS ---
NM kanu perf SPECT r/s* [id number] Rizwan Lobato Age: 74 Gender: M : 1950 Exam Date: 03/03/2025 10:15 Ordering Phys: Leydi Quevedo NP Technologist: ABDOULAYE Magallanes Exam Location: [facility] Indications: cp STRESS TEST Please see separate stress test report in [facility] for full findings IMAGE PROTOCOL Rest/Stress 1 Lexiscan Day Radiopharmaceutical Dose (mCi) Administration Site Administered by Rest: Tc-99m 10.9 IV ABDOULAYE Ibarra Sestamibi Stress:Tc-99m 32.7 IV ABDOULAYE Ibarra Sestamibi Rest: 03-Mar-2025 60 Discovery 630 Stress: 03-Mar-2025 30 Discovery 630 0.4mg Lexiscan. Images obtained in supine and prone position. SPECT RESULTS Technical Quality: Good Raw Data Analysis: Normal Image Corrections: No attenuation or motion correction applied Summed Stress Score: 8 Summed Rest Score: 16 Summed Difference Score: 0 PERFUSION FINDINGS Large areas of mostly fixed perfusion defect seen in apical, inferior and inferolateral yi. These defects mostly resolve on prone imaging. Likely consistent with attenuation artifact. However large areas of prior infarct can not be ruled out in these territories. No significant ischemia. Clinical correlation is required. FUNCTIONAL RESULTS (calculated via Gated SPECT) Stress Image LV EF (%): 41 Stress EDV (mL):193 TID: 1.06 Stress ESV (mL):113 FUNCTIONAL FINDINGS: LV systolic function is mild to moderately reduced with EF of 41%. IMPRESSIONS 1. Large area of attenuation artifact seen in apical, inferior and inferolateral yi. Less likely prior infarct in these yi. No evidence of ischemia. Clinical correlation is required 2. LV systolic function is mild to moderately reduced with EF of 41% Alfred Fay MD (Electronically Signed) Final Date: 07 Mar 2025 09:24 S
[2025-03-03] MEDS: regadenoson 0.4 Mg/5 ml Syringe IVP (11:03)
[2025-03-03 11:13] VITALS: BP 104/69; PULSE 71
== END 2025-03-03 09:21 | disposition home or self-care (01) ==
LOC: CDL 09:21
PROVIDERS: PCP Nurse Practitioner Family; Visit Provider Nurse Practitioner Family
DX: R06.02 Shortness of breath (principal); R93.1 Abnormal findings on diagnostic imaging of heart and coronary circulation
CPT/HCPCS: 36415; 78452; 93017; 96374; A9500; J2785

== ENCOUNTER 2025-03-03 15:19 | Outpatient (CLI) | payer MEDICARE, OTHER, SELFPAY ==
[2025-03-03 16:55] LABS: Anion Gap 16.3 (5-19); Blood Urea Nitrogen 29 mg/dL (8-23); Calcium 8.9 mg/dL (8.5-10.5); Carbon Dioxide 24 mmol/L (22-29); Chloride 103 mmol/L (98-107); Glucose 102 mg/dL (65-115); Osmolality Calculated 294 mOsm/kg (285-295); Potassium 4.3 mmol/L (3.5-5.1); Sodium 139 mmol/L (136-145)
== END 2025-03-03 15:20 | disposition home or self-care (01) ==
LOC: LAB 15:21
PROVIDERS: PCP Nurse Practitioner Family; Visit Provider Nurse Practitioner Family
DX: E87.5 Hyperkalemia (principal)
CPT/HCPCS: 36415; 80048

== ENCOUNTER 2025-03-06 10:00 | Oncology outpatient (recurring) (ONCR) | payer MEDICARE, OTHER, SELFPAY ==
--- NOTE | 2025-02-13 16:45 | MRR_ITS ---
PROCEDURE INFORMATION: Exam: MR Lumbar Spine Without Contrast Exam date and time: 02/13/2025 1:21 PM Age: 74 years old Clinical indication: Low back pain; Additional info: M47.816 - spondylosis without myelopathy or radiculopathy. . . TECHNIQUE: Imaging protocol: Magnetic resonance imaging of the lumbar spine without contrast. COMPARISON: MR lumbar spine wo con* [id number] 05/18/2023 3:30 PM FINDINGS: Bones/joints: As before, there are 6 lumbar-type vertebrae numbering from the craniocervical junction. No fracture. Mild levocurvature of the lumbar spine again seen. Similar slight grade 1 anterolisthesis of L6 on S1. Spinal cord: Visualized cord, conus medullaris and cauda equina are unremarkable without compression. L1-L2: Mild disc bulge and facet arthropathy. No severe spinal canal stenosis. No significant neural foraminal narrowing. L2-L3: Mild disc bulge with ongoing impingement of the right subarticular recess. Moderate bilateral facet arthropathy. No severe spinal canal stenosis. Moderate right neural foraminal narrowing. L3-L4: Disc bulge and moderate bilateral facet arthropathy. Ongoing narrowing of the xxdrh-vbdeqzw-niou-left subarticular recess. Mild spinal canal stenosis. Moderate right and mild left neural foraminal narrowing. L4-L5: Disc bulge, ligamentum flavum thickening, bilateral facet arthropathy. Narrowing of the subarticular recesses bilaterally with impingement of the descending L5 nerve roots. Progressed moderate spinal canal stenosis. Moderate bilateral neural foraminal narrowing, vvjty-jgjbiuq-upnt-left. L5-L6: Disc bulge, ligamentum flavum thickening, bilateral facet arthropathy. Impingement the descending L6 nerve roots. Moderate spinal canal stenosis. Moderate bilateral neural foraminal narrowing. L6-S1: Slight grade 1 anterolisthesis. Moderate facet arthropathy with mild bilateral neural foraminal narrowing. Soft tissues: Unremarkable. MR/MR lumbar spine wo con* [id number] IMPRESSION: 1. 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 2. Progressed moderate spinal canal stenosis at L4-L5 and L5-L6. 3. Impingement of the descending L5 and L6 nerve roots bilaterally. 4. Wdvw-uv-vbdljnib bilateral foraminal narrowing at multiple levels.
[2025-03-05 14:54] LABS: Leukemia Profile (BBPL) See Report
--- NOTE | 2025-03-06 10:00 | USCV_ITS ---
Rizwan Lobato Age: 74 Gender: M : 1950 Exam Date: 03/06/2025 10:21 Ordering Phys: Leydi Quevedo NP Technologist: Exam Location: [facility] [place] Indication: starting high risk meds BP: 130 / 80 HR: Rhythm: Sinus Technical Quality: Adequate MEASUREMENTS (Male / Female) Normal Values 2D ECHO LV Diastolic Diameter PLAX 5.3 cm 4.2 - 5.9 / 3.9 - 5.3 cm IVS Diastolic Thickness 1.3 cm 0.6 - 1.0 / 0.6 - 0.9 cm IVS Systolic Thickness 1.6 cm LVPW Diastolic Thickness 1.5 cm 0.6 - 1.0 / 0.6 - 0.9 cm LVPW Systolic Thickness 2.2 cm LVOT Diameter 2.0 cm LV Ejection Fraction 2D Teich 40.8 % LV Ejection Fraction MOD 4C 48.4 % LV Ejection Fraction MOD 2C 36.1 % LV Ejection Fraction 2C AL 37.8 % LA Diameter 4.5 cm Aorta at Sinotubular Diameter 2.4 cm IVC Diameter 1.6 cm M-MODE LA Ao Ratio MM 1.3 AV Cusp Separation MM 2.5 cm FINDINGS Left Ventricle LV cavity, upper limit of normal size. Somewhat dyskinetic septum. Diffuse hypokinesia of the left ventricle with an ejection fraction of 25 to 30%,( visual) Right Ventricle Not well-visualized. Possibly normal size with a slightly diminished ejection for Right Atrium Mildly increased right atrial size. Left Atrium Mildly increased left atrial size. Mitral Valve Moderately thickened anterior mitral leaflet.mild-moderate mitral valve regurgitation. Aortic Valve Minimally thickened aortic valve Tricuspid Valve Positive abnormalities noted Pulmonic Valve Pulmonic valve is not visualized Pericardium No pericardial effusion. Aorta Normal aortic annulus size. IVC Normal inferior vena cava. CONCLUSIONS LV cavity, upper limit of normal size. Somewhat dyskinetic septum. Diffuse hypokinesia of the left ventricle with an ejection fraction of 25 to 30%,( visual) Possibly normal RV size with a slightly diminished ejection fraction Moderately thickened anterior mitral leaflet. Mild-moderate mitral valve regurgitation. Minimally thickened aortic valve There is no pericardial effusion. There are no intracardiac masses. Compared to the study from 09/03/2024, there is a significant drop in the LV ejection fraction. Leydi Quevedo is informed about this finding Dr Franky Sterling MD FACC (Electronically Signed) Final Date: 07 Mar 2025 10:03 S
== END 2025-03-15 23:59 | disposition home or self-care (01) ==
LOC: RAD 03-07 00:01 → ONCMED 03-11 09:30
PROVIDERS: Internal Medicine Medical Oncology; PCP Nurse Practitioner Family; Visit Provider Anesthesiology Pain Medicine
DX: R06.02 Shortness of breath (principal); I34.0 Nonrheumatic mitral (valve) insufficiency; I51.89 Other ill-defined heart diseases
CPT/HCPCS: 36415; 72148; 81263; 82232; 88184; 88185; 88264; 88271; 88367; 88374; 93308; 99205

== ENCOUNTER 2025-03-14 06:57 | Outpatient (CLI) | payer MEDICARE, OTHER, SELFPAY ==
[2025-03-14] MEDS: iohexol 350 mg/mL 500 mL Btl (per mL) IV (07:32)
[2025-03-14] MEDS: iohexol 350 mg/mL 500 mL Btl (per mL) PO (07:33)
--- NOTE | 2025-03-14 08:00 | CTR_ITS ---
PROCEDURE INFORMATION: Exam: CT Chest With Contrast; Diagnostic Exam date and time: 03/14/2025 8:11 AM Age: 74 years old Clinical indication: Condition or disease; Other: Thrombocytopenia; Primary cancer: Leukemia; Prior surgery; Surgery date: 6+ months; Surgery type: Bowel resection (obstruction), appy, gb TECHNIQUE: Imaging protocol: Diagnostic computed tomography of the chest with contrast. Radiation optimization: All CT scans at this facility use at least one of these dose optimization techniques: automated exposure control; mA and/or kV adjustment per patient size (includes targeted exams where dose is matched to clinical indication); or iterative reconstruction. Contrast material: OMNI 350; Contrast volume: 100 ml; Contrast route: INTRAVENOUS (IV); COMPARISON: CR XR chest 2V* [id number] 01/28/2025 9:08 AM RADIATION DOSE METRICS: Total DLP (mGy-cm): 1046.68 FINDINGS: Thyroid: The thyroid is atrophic. Lungs: Mild bandlike atelectasis/scarring in the medial basal left lower lobe. No focal consolidation or generalized interstitial process. No suspicious pulmonary nodules. Pleural spaces: Unremarkable. No pneumothorax. No pleural effusion. Heart: Unremarkable. No cardiomegaly. No pericardial effusion. Coronary arteries: Moderate coronary artery calcifications. Lymph nodes: Unremarkable. No enlarged lymph nodes. Vasculature: The thoracic aorta is nonaneurysmal with mild atherosclerotic calcifications. Diaphragm: Small sliding-type hiatal hernia. Bones/joints: Qher-su-gxlbplwf degenerative changes of the visualized spine. No acute or aggressive osseous lesion. Soft tissues: Symmetric mild bilateral gynecomastia. PROCEDURE INFORMATION: Exam: CT Abdomen And Pelvis With Contrast Exam date and time: 03/14/2025 8:11 AM Age: 74 years old Clinical indication: Condition or disease; Other: Thrombocytopenia; Primary cancer: Leukemia; Prior surgery; Surgery date: 6+ months; Surgery type: Bowel resection (obstruction), appy, gb TECHNIQUE: Imaging protocol: Computed tomography of the abdomen and pelvis with contrast. Radiation optimization: All CT scans at this facility use at least one of these dose optimization techniques: automated exposure control; mA and/or kV adjustment per patient size (includes targeted exams where dose is matched to clinical indication); or iterative reconstruction. Contrast material: OMNI 350; Contrast volume: 100 ml; Contrast route: INTRAVENOUS (IV); COMPARISON: 1. CT abdomen w con* [id number] 12/29/2023 12:[address] abdomen pelvis w con* [id number] 05/09/2022 8:46 PM RADIATION DOSE METRICS: Total DLP (mGy-cm): 1046.68 FINDINGS: Liver: Borderline hepatic steatosis. Gallbladder and biliary ducts: Status post cholecystectomy. No biliary ductal dilatation. Pancreas: Normal. No ductal dilation. Spleen: The spleen measures 16.7 cm craniocaudal. Adrenal glands: Normal. No mass. Kidneys and ureters: Small peripelvic renal cysts are again seen, iwev-fztovwe-htxa-right. No hydronephrosis. Stomach and bowel: Partial colonic resection again noted with ileocolic anastomosis in the right upper quadrant. Anastomosis appears patent. Moderate stool throughout the colon. No evidence of bowel obstruction. Appendix: No evidence of appendicitis. Intraperitoneal space: Unremarkable. No free air. No significant fluid collection. Vasculature: Mild atherosclerotic aortoiliac calcifications. No abdominal aortic aneurysm. Lymph nodes: Unremarkable. No enlarged lymph nodes. Urinary bladder: Mild diffuse urinary bladder wall thickening. Further assessment is limited by streak artifact from hip arthroplasty. Reproductive: Unremarkable as visualized. Bones/joints: Degenerative changes of the lumbar spine most pronounced at L4-L5. Mild levocurvature of the lumbar spine. Right total hip arthroplasty appears intact within the field of view. Soft tissues: Left scrotal calcifications partially visualized. CT/CT chest abdpel w/*[id number] IMPRESSION: No acute findings in the chest. IMPRESSION: 1. No acute findings in the abdomen/pelvis. 2. Splenomegaly. 3. Partial colonic resection with ileocolic anastomosis in the right upper quadrant. No evidence of bowel obstruction. 4. Moderate colonic stool can be seen with constipation. 5. Mild diffuse bladder wall thickening could be related to chronic outlet obstruction, though acute cystitis is not excluded. Correlate with physical exam findings and urinalysis.
== END 2025-03-14 06:58 | disposition home or self-care (01) ==
PROVIDERS: PCP Nurse Practitioner Family; Visit Provider Internal Medicine Medical Oncology
DX: R16.1 Splenomegaly, not elsewhere classified (principal); D69.6 Thrombocytopenia, unspecified; D72.820 Lymphocytosis (symptomatic); Z98.890 Other specified postprocedural states; R93.89 Abnormal findings on diagnostic imaging of other specified body structures; E03.4 Atrophy of thyroid (acquired); J98.4 Other disorders of lung; I25.10 Atherosclerotic heart disease of native coronary artery without angina pectoris; I70.0 Atherosclerosis of aorta; K44.9 Diaphragmatic hernia without obstruction or gangrene; N62 Hypertrophy of breast; Z90.49 Acquired absence of other specified parts of digestive tract; N28.1 Cyst of kidney, acquired; M47.896 Other spondylosis, lumbar region; M43.8X6 Other specified deforming dorsopathies, lumbar region; Z96.643 Presence of artificial hip joint, bilateral
CPT/HCPCS: 71260; 74177

== ENCOUNTER 2025-03-16 18:50 | Inpatient (IN) | payer MEDICARE, OTHER, SELFPAY ==
--- NOTE | 2025-03-16 18:59 | ECG_ITS ---
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 Measurements Intervals [place] Rate: 98 P: 0 ND: 0 QRS: 47 QRSD: 95 T: 89 QT: 367 QTc: 470 Interpretive Statements ATRIAL FIBRILLATION NONSPECIFIC ST & T-WAVE ABNORMALITY Compared to ECG 02/25/2025 14:18:05 Sinus rhythm no longer present Ventricular premature complex(es) no longer present T-wave abnormality still present Electronically Signed On 03-18-2025 11:38:33 CDT by Alfred Fay M.D. [email or web address] [id number]
[2025-03-16 19:02] VITALS: BP 62/40; PULSE 59; RESP 18; TEMP 36.7; O2SAT 95
--- NOTE | 2025-03-16 19:13 | XRR_ITS ---
PROCEDURE INFORMATION: Exam: XR Chest Exam date and time: 03/16/2025 7:22 PM Age: 74 years old Clinical indication: Pain; Chest pressure; Additional info: Cp TECHNIQUE: Imaging protocol: Radiologic exam of the chest. Views: 1 view. COMPARISON: CT chest abdpel w/*[id number] 03/14/2025 8:11 AM FINDINGS: Tubes, catheters and devices: Cardiac life vest device overlying the chest. Lungs: The lungs appear relatively clear. Pleural spaces: Unremarkable. No pleural effusion. No pneumothorax. Heart/Mediastinum: Unremarkable. No cardiomegaly. Bones/joints: Unremarkable. XR/XR chest 1V portable [id number] IMPRESSION: As above.
[2025-03-16 19:23] LABS: Basophils % 0.2 %; Eosinophils # 0.3 10^3/uL (0.0-0.8); Eosinophils % 2.1 %; Lymphocytes # 7.6 10^3/uL (0.8-4.8); Lymphocytes % 59.2 %; Mean Corpuscular HGB Conc 31.9 g/dL (30-55); Mean Corpuscular Hemoglobin 30.9 pg (27-33); Mean Platelet Volume 10.4 fL (7.4-10.4); Monocytes # 0.8 10^3/uL (0.2-0.9); Monocytes % 6.3 %; Neutrophils # 4.09 10^3/uL (1.8-7.7); Nucleated Red Blood Cells % 0 %; Platelet Count 128 10^3/cmm (157-399); Red Blood Count 4.33 10^6/uL (3.85-5.65); Red Cell Distribution Width 12.2 % (12.1-15.1); White Blood Count 12.78 10^3/uL (3.29-11.43)
[2025-03-16] MEDS: dilTIAZem 5 mg/mL SDV 5 mL 10 MG IVP (19:29)
[2025-03-16 19:30] LABS: INR 0.98 (0.8-1.2)
[2025-03-16 19:31] LABS: Partial Thromboplastin Time 30.1 SECONDS (23.9-36.7)
[2025-03-16 19:37] LABS: Troponin(5th) Baseline 21 ng/L (0-15)
[2025-03-16 19:53] LABS: Alanine Aminotransferase 47 U/L (0-41); Albumin Level 4.2 g/dL (3.5-5.2); Alkaline Phosphatase 112 U/L (40-130); Anion Gap 18.7 (5-19); Aspartate Amino Transferase 92 U/L (0-40); Blood Urea Nitrogen 32 mg/dL (8-23); Calcium 9.3 mg/dL (8.5-10.5); Carbon Dioxide 24 mmol/L (22-29); Chloride 100 mmol/L (98-107); Creatine Phosphokinase 172 U/L (39-308); Creatinine Clr Calc Pharmacy 74.7226; Glucose 63 mg/dL (65-115); Magnesium 2.2 mg/dL (1.7-2.3); NT Pro B Type Natriuretic Pept 1026 pg/mL (0-125); Osmolality Calculated 293 mOsm/kg (285-295); Potassium 3.7 mmol/L (3.5-5.1); Sodium 139 mmol/L (136-145); Total Bilirubin 0.8 mg/dL (0.15-1.2); Total Protein 6.2 g/dL (6.6-8.7)
--- NOTE | 2025-03-16 20:02 | ED_ITS ---
HPI - Chest Pain 2 General: Chief Complaint: Chest Pain Stated Complaint: SOB / chest pain Time Seen by Provider: 03/16/25 19:10 History of Present Illness: 74-year-old gentleman with a history of heart failure. He had an echo this past week, showing an EF of 25 to 30%. He also has a new diagnosis of atrial fibrillation. He was placed on a LifeVest. He had a recent stress test that was negative for inducible ischemia, but showed a reduced EF that was significant as well. He presents with chest discomfort that started at home. He just got home from the gym, and had been working out with no symptoms. He had eaten dinner, and began to get abdominal pain. He has a history of a hiatal hernia, and thought that his pain may be related to that, but he was also not able to breathe, and his pain intensified. He presented here, where his heart rate was low, he was pale and diaphoretic in triage, with a low blood pressure. Since that time, his heart rate is increased significantly. He states that his heart rate is normally in the 40s to 50s. It is currently in the 130s. He still having discomfort although he is improved. He feels like he can breathe now. Related Data Home Medications ?Medication ?Instructions ?Recorded ?Confirmed docusate sodium 100 mg capsule 100 mg PO BID 08/06/21 03/16/25 polyethylene glycol 3350 17 gram 17 g PO BID 08/06/21 03/16/25 oral powder packet (Miralax) esomeprazole magnesium 20 mg 20 mg PO DAILY 06/02/22 0 03/16/25 capsule,delayed release simvastatin 10 mg tablet (Zocor) 10 mg PO QPM 02/02/24 03/16/25 fluticasone propionate 50 2 spray intranasal DAILY PRN 10/24/24 03/16/25 mcg/actuation nasal allergies spray,suspension (Allergy Relief (fluticasone)) albuterol sulfate 90 mcg/actuation inhalation PRN 02/1403/04/25 aerosol inhaler Previous Rx's ?Medication ?Instructions ?Recorded aspirin 81 mg tablet,delayed 81 mg PO DAILY #100 tabs 02/08/24 release (Adult Low Dose Aspirin) metoprolol succinate 25 mg 12.5 mg (1/2 x 25 mg) PO DA REFUGIO #45 07/25/24 tablet,extended release 24 hr tabs fluticasone 100 mcg-salmeterol 50 1 inh inhalation BID #60 ea 01/17/25 mcg/dose blistr powdr for inhalation (Advair Diskus) furosemide 40 mg tablet (Lasix) 40 mg PO DAILY #30 tab s 02/25/25 Allergies Allergy/AdvReac Type Severity Reaction Status Date / Time hydromorphone (From Dilaudid) AdvReac Severe ADR/ALGY-Hy Verified 03/04/25 14:43 potension PFSH ED 2 PFSH: Medical History CAD (coronary artery disease) Left ventricular dysfunction Premature ventricular contractions Elevated troponin Small bowel obstruction Aftercare following right hip joint replacement surgery High risk medication use Seropositive rheumatoid arthritis of multiple sites Small bowel obstruction Vomiting Chronic low back pain Hypercholesterolemia Atopic dermatitis Elevated liver enzymes Barretts esophagus Testosterone deficiency Hiatal hernia with GERD Hyperglycemia Surgical History Status post total hip replacement, right Total knee replacement status Status post arthroscopy of left shoulder History of appendectomy History of bowel resection History of hernia repair Family History Other Cancer Denies family history of Anesthesia complication Bleeding disorder Social History (Updated 03/16/25 @ 22:47 by Leonard Monge MD) Smoking and tobacco/nicotine status: former use of tobacco/nicotine Quit status (tobacco/nicotine): has quit using Year quit tobacco: 1991 Former quit date comment: Hx of 1 PPD x 21 Years Second hand smoke exposure: No Alcohol intake: current Alcohol intake frequency: few times a month Alcohol type: beer Substance/Drug Use: never Additional social history: Is companied by his Barbra and he wants full CODE STATUS as discussed with Leonard Monge MD on 03/16/2025. 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 Lives independently: Yes Household members: spouse Marital status: Current occupational status: retired 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[employer] In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 Do you think of yourself as: Straight/Heterosexual Current gender identity: Male Physical Exam 2 Const: GENERAL APPEARANCE: cooperative and ill appearing (Mildly); not frail appearing ORIENTATION/CONSCIOUSNESS: Yes awake, Yes oriented to person, Yes oriented to place and Yes oriented to time HENMT: COMMON NORMALS: normocephalic, atraumatic and Normal external nose present HEAD & SCALP: normocephalic and atraumatic FACE & SINUS: normal facial exam NOSE: Normal external nose present Eye: COMMON NORMALS: Equal, round and reactive pupils present and EOMs intact bilaterally PUPIL: Yes Equal, round and reactive pupils present Chest: CHEST: Yes Symmetrical chest wall rise Resp: COMMON NORMALS: normal respiratory effort, No use of accessory muscles and clear to auscultation bilaterally AUSCULTATION: clear to auscultation bilaterally Cardio: RATE: tachycardic RHYTHM: abnormal rhythm irregularly irregular GI: COMMON NORMALS: Soft to palpation and non-tender PALPATION: Yes Soft to palpation Neuro: SENSORIUM/ORIENTATION: Yes oriented to person, Yes oriented to place and Yes oriented to time Course 2 Vital Signs: Vital signs: Vital Signs Temperature 98.4 F 03/17/25 04:00 Pulse Rate 80 03/17/25 04:00 Respiratory Rate 16 03/17/25 04:00 Blood Pressure 102/80 03/17/25 04:00 Pulse Oximetry 97 03/17/25 04:00 Oxygen Delivery Me thod Room Air 03/17/25 04:00 MDM - Chest Pain Medical Decision Making Patient has a resting heart rate supine 135 currently, he is mildly diaphoretic and pale. Blood pressure was normal. He was given a bolus of 10 mg of diltiazem with transient improvement in his heart rate down to the 70s. He feels much better. His discomfort is essentially gone at this rate. He is placed on a diltiazem drip at 5 so far. His heart rates 70-90. Blood pressure 122/74. He still improved. Sugar is 63 on serum testing. He is given something sugary to drink. His platelet count is 128 he has a history of thrombocytopenia with a new diagnosis of CLL. His white blood cell count is 13. His BUN is 32. He is receiving a 500 cc bolus. His TSH is high normal. His BNP is only 8000. His initial troponin is 21. He will be observed. Hospitalist was consulted and has seen the patient in the emergency department. Cardiology was also consulted. Recommendations from cardiology are movement to amiodarone if low-dose diltiazem drip does not control his rate, and the patient is still symptomatic. Approved Lovenox for use for anticoagulation for atrial fibrillation. He will see the patient in the morning. Lab Data 03/16/25 19:12 03/17/25 01:01 Radiology Impressions Chest X-Ray 03/16/25 19:13 IMPRESSION: As above. Laboratory Results WBC 12.78 10^3/uL (3.29-11.43) H 03/16/25 19:12 RBC 4.33 10^6/uL (3.85-5.65) 03/16/25 19:12 Hgb 13.40 g/dL (11.27-16.99) 03/16/25 19:12 Hct 42.0 % (37-53) 03/16/25 19:12 MCV 97.0 fl (82-101) 03/16/25 19:12 MCH 30.9 pg (27-33) 03/16/25 19:12 MCHC 31.9 g/dL (30-55) 03/16/25 19:12 RDW 12.2 % (12.1-15.1) 03/16/25 19:12 Plt Count 128 10^3/cmm (157-399) L 03/16/25 19:12 MPV 10.4 fL (7.4-10.4) 03/16/25 19:12 Neut % (Auto) 32.0 % 03/16/25 19:12 Lymph % (Auto) 59.2 % 03/16/25 19:12 Haines % (Auto) 6.3 % 03/16/25 19:12 Eos % (Auto) 2.1 % 03/16/25 19:12 Baso % (Auto) 0.2 % 03/16/25 19:12 Neut # (Auto) 4.09 10^3/uL (1.8-7.7) 03/16/25 19:12 Lymph # (Auto) 7.6 10^3/uL (0.8-4.8) H 03/16/25 19:12 Haines # (Auto) 0.8 10^3/uL (0.2-0.9) 03/16/25 19:12 Eos # (Auto) 0.3 10^3/uL (0.0-0.8) 03/16/25 19:12 Baso # (Auto) 0.0 10^3/uL (0.0-0.1) 03/16/25 19:12 Nucleated RBC % (auto) 0 % 03/16/25 19:12 Nucleated RBCs # 0.0 /100WBC 03/16/25 19:12 PT 13.70 SECONDS (12.1-14.9) 03/16/25 19:12 INR 0.98 (0.8-1.2) 03/16/25 19:12 APTT 30.1 SECONDS (23.9-36.7) 03/16/25 19:12 Sodium 139 mmol/L (136-145) 03/16/25 19:12 Potassium 3.7 mmol/L (3.5-5.1) 03/16/25 19:12 Chloride 100 mmol/L (98-107) 03/16/25 19:12 Carbon Dioxide 24 mmol/L (22-29) 03/16/25 19:12 Anion Gap 18.7 (5-19) 03/16/25 19:12 BUN 32 mg/dL (8-23) H 03/16/25 19:12 Creatinine 1.1 mg/dL (0.7-1.2) 03/16/25 19:12 GFR Calculation Not Reportable 03/16/25 19:12 Glucose 63 mg/dL (65-115) L 03/16/25 19:12 Calculated Osmolality 293 mOsm/kg (285-295) 03/16/25 19:12 Calcium 9.3 mg/dL (8.5-10.5) 03/16/25 19:12 Magnesium 2.2 mg/dL (1.7-2.3) 03/16/25 19:12 Total Bilirubin 0.8 mg/dL (0.15-1.2) 03/16/25 19:12 AST 92 U/L (0-40) H 03/16/25 19:12 ALT 47 U/L (0-41) H 03/16/25 19:12 Alkaline Phosphatase 112 U/L (40-130) 03/16/25 19:12 Creatine Kinase 172 U/L (39-308) 03/16/25 19:12 Troponin T Baseline 21 ng/L (0-15) H 03/16/25 19:12 NT-Pro-B Natriuret Pep 1026 pg/mL (0-125) H 03/16/25 19:12 Total Protein 6.2 g/dL (6.6-8.7) L 03/16/25 19:12 Albumin 4.2 g/dL (3.5-5.2) 03/16/25 19:12 Globulin 2.0 g/dL (1.3-4.6) 03/16/25 19:12 TSH 4.10 uIU/mL (0.27-4.20) 03/16/25 19:12 All radiology interpretation(s) finalized by discharge Critical Care Time 2 Critical Care Time: Critical Care Time: Yes Total Critical Care Time: 35 Attestation: This case had a high probability of a clinically significant, sudden, or life threatening deterioration of this patient's condition which required my full and direct attention, intervention and personal management. Time is independent of any procedures performed Discharge Plan Discharge Patient Disposition: Placed in Observation Admit Provider: Leonard Monge Clinical Impression: Chest pain, Atrial fibrillation with RVR Coding Level of Care Code ED Charge Lpn for Veronika Laguerre
[2025-03-16 20:13] VITALS: BP 122/73; PULSE 89; RESP 16; O2SAT 93
[2025-03-16 20:30] VITALS: BP 110/68; PULSE 78; RESP 16; O2SAT 94
[2025-03-16] MEDS: sodium chloride 0.9% 500 ML 999 ML IV (20:45)
[2025-03-16] MEDS: dilTIAZem 100 MG in sodium chloride 0.9% (add-van) 100 ML IV (21:02)
[2025-03-16] MEDS: enoxaparin 100 mg/mL Syringe 90 MG SUBCUT (21:05)
[2025-03-16 21:22] LABS: Troponin 5 2HR 17.76 ng/L (0-15)
[2025-03-16 21:39] LABS: Troponin 5 2HR Delta -3.24 ABS# (0-10)
[2025-03-16 22:26] VITALS: BMI 27.6
--- NOTE | 2025-03-16 22:36 | P.HP_ITS ---
Providers/Chief Complaint 2 Admitting Physician: Leonard Monge MD Primary Care Provider: RADHA Kelsey Chief Complaint: SOB / chest pain History of Present Illness Rizwan Lobato is a 74 year old male comes in with abdominal pain after dinner and shortness of breath. Pain intensified and he presented to the emergency department where his heart rate was low he was pale diaphoretic in triage with blood pressure 80s systolic. After being roomed in the emergency department his heart rate was 130s A-fib. Patient tells me that he did some light workout with weights today and also walked a mile. He felt fatigued. Patient tells me that with his recent home Holter monitoring upon application the tech told him that he had a high heart rate look like A-fib. Patient states that the first time he has had A-fib and that was Monday. Patient had an angiogram 02/07/2024 showing multivessel disease however the LAD and left main were clear minimal luminal irregularity. The circumflex and its branches had disease in the second obtuse marginal had an 80% stenosis which was unable to be stented. RCA was large dominant vessel and had a 30 to 40% stenosis in the proximal portion. Of note his nuclear imaging prior to that on 08/04/2020 was read as normal with attenuation artifact noted in the infero and inferoseptal yi which could correspond to the two-vessel disease. EF at the time was 58%. Next line nuclear imaging test 03/03/2025 showed EF dropped to 41% with large areas of mostly fixed defect in the apical inferior and inferolateral yi. Echocardiogram 03/06/2025 showed dyskinetic septum with diffuse hypokinesia of the left ventricle with ejection fraction of 20 to 30%. Review of Systems 2 Narrative: General patient denies weight gain or weight loss he does not have fevers or chills Cardiovascular positive for some chest pressure and dyspnea on exertion he has not noted palpitations he has noted fast heart rate as well as slow heart rate at home Respiratory positive for cough wheezing some leg swelling GI no nausea vomiting diarrhea he does have constipation chronically and has had multiple bowel obstructions after initial colon obstipation requiring resection of the third of his colon. Since then he has had diagnosis of 3 internal hernias. He is chronically on docusate and MiraLAX twice a day. negative for dysuria hematuria he does have hesitancy and had a I tense procedure due to lightheadedness and low blood pressure with Flomax. No seizures or strokes Malignancy negative Hematologic no history of clots in legs or lungs Medications/Allergies Home Medications ?Medication ?Instructions ?Recorded ?Confirmed ?Last Taken ?Type docusate sodium 100 mg capsule 100 mg PO BID 08/06/21 03/04/25 02/17/25 History polyethylene glycol 3350 17 gram 17 g PO BID 08/06/21 03/04/25 02/17/25 History oral powder packet (Miralax) esomeprazole magnesium 20 mg 20 mg PO DAILY 06/02/22 0 03/04/25 02/17/25 History capsule,delayed release simvastatin 10 mg tablet (Zocor) 10 mg PO QPM 02/02/24 03/04/25 02/16/25 History aspirin 81 mg tablet,delayed 81 mg PO DAILY #100 tabs 02/08/24 03/04/25 02/17/25 Rx release (Adult Low Dose Aspirin) metoprolol succinate 25 mg 12.5 mg (1/2 x 25 mg) PO DA REFUGIO #45 07/25/24 03/04/25 02/17/25 Rx tablet,extended release 24 hr tabs fluticasone propionate 50 2 spray intranasal DAILY PRN 10/24/24 03/04/25 Unknown History mcg/actuation nasal allergies spray,suspension (Allergy Relief (fluticasone)) fluticasone 100 mcg-salmeterol 50 1 inh inhalation BID #60 ea 01/17/25 03/04/25 02/17/25 Rx mcg/dose blistr powdr for inhalation (Advair Diskus) furosemide 40 mg tablet (Lasix) 40 mg PO DAILY #30 tab s 02/25/25 03/04/25 Unknown Rx albuterol sulfate 90 mcg/actuation inhalation 03/04/25 03/04/25 Unknown History aerosol inhaler Allergies Allergy/AdvReac Type Severity Reaction Status Date / Time hydromorphone (From Dilaudid) AdvReac Severe ADR/ALGY-Hy Verified 03/04/25 14:43 potension PFSH Acute 2 PFSH: Medical History CAD (coronary artery disease) Left ventricular dysfunction Premature ventricular contractions Elevated troponin Small bowel obstruction Aftercare following right hip joint replacement surgery High risk medication use Seropositive rheumatoid arthritis of multiple sites Small bowel obstruction Vomiting Chronic low back pain Hypercholesterolemia Atopic dermatitis Elevated liver enzymes Barretts esophagus Testosterone deficiency Hiatal hernia with GERD Hyperglycemia Surgical History Status post total hip replacement, right Total knee replacement status Status post arthroscopy of left shoulder History of appendectomy History of bowel resection History of hernia repair Family History Other Cancer Denies family history of Anesthesia complication Bleeding disorder Social History (Updated 03/16/25 @ 22:47 by Leonard Monge MD) Smoking and tobacco/nicotine status: former use of tobacco/nicotine Quit status (tobacco/nicotine): has quit using Year quit tobacco: 1991 Former quit date comment: Hx of 1 PPD x 21 Years Second hand smoke exposure: No Alcohol intake: current Alcohol intake frequency: few times a month Alcohol type: beer Substance/Drug Use: never Additional social history: Is companied by his Barbra and he wants full CODE STATUS as discussed with Leonard Monge MD on 03/16/2025. 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 Lives independently: Yes Household members: spouse Marital status: Current occupational status: retired 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[employer] In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 Do you think of yourself as: Straight/Heterosexual Current gender identity: Male Vitals/I&O/Wt Last Vital Signs Temp 98.0 F 03/16/25 19:02 Pulse 89 03/16/25 20:13 Resp 16 03/16/25 20:13 BP 122/73 03/16/25 20:13 Pulse Ox 93 03/16/25 20:13 O2 Del Method Room Air 03/16/25 20:13 03/16/25 03/16/25 03/16/25 06:59 14:59 22:59 Intake Total 2.417 / 2.417 Balance 2.417 / 2.417 Weight last 48 hrs Weight 97.522 kg Physical Exam 2 Narrative: General Well-developed well-nourished tall male in no acute cardiopulmonary distress CV irregular irregular rate is controlled no loud murmur Lungs clear to auscultation bilaterally Abdomen positive bowel sounds soft nontender there is a ventral diathesis or hernia midline and incisional scar well-healed Calves trace to 1+ bilateral pretibial edema no asymmetry Neuro he moves all extremities symmetrically speech is clear Mentation mildly anxious at the medical condition he is in an somber but appropriate Data 03/16/25 19:12 03/16/25 19:12 A&P Assessment and plan (1) Chest pain: This is suspicious for angina and his arrhythmia and wall motion abnormalities also suspicious for ischemia. Cardiac enzyme baseline 21 dropped to 17 at 2 hours. 6 hours pending patient was given Lovenox by Dr. Burnett in the emergency department. I think the patient should start heparin drip in the morning after Lovenox 12-hour timeframe. (2) CAD (coronary artery disease): Patient had 2 vessels disease with the LAD and left main relatively clear. I think with his very low EF his recent nuclear test would be less sensitive and also with multivessel disease this may represent three-vessel disease. I encouraged patient to have a repeat angiogram and stents of possible or bypass if deemed appropriate. Dr. Hubbard was consulted by the ER physician Will test for LDL, high-sensitivity C-reactive protein and lipoprotein a in the morning. Substitute high-dose statin for his low-dose simvastatin from home (3) Atrial fibrillation with RVR: Rate control with metoprolol and diltiazem drip. (4) Premature ventricular contractions: Counseled the patient to avoid exercise until ischemic work are completed and if no intervention possible after he has his defibrillator implanted PDMP PDMP Reviewed: Not Reviewed Attestations 2 Medical Necessity Statement*: Patient is admitted to hospital inpatient and expected to cross 2 midnights Coding Level of Care Code 67994 Diagnoses Chest pain R07.9 Coronary artery disease involving [place] coronary artery of [place] heart without angina pectoris I25.10 Coronary Disease-Associated Artery/Lesion type: [place] artery [place] vs. transplanted heart: [place] heart Associated angina: without angina Atrial fibrillation with RVR I48.91 Premature ventricular contractions I49.3 Time Spent (min) 75
--- NOTE | 2025-03-16 22:37 | ECG_ITS ---
[facility] [employer] 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: : 1950 Requested By: Antoni Martínez Order Number: [id number] Reading MD: ANTONIETA PATHAK Measurements Intervals [place] Rate: 75 P: 78 FL: 180 QRS: 41 QRSD: 98 T: 114 QT: 425 QTc: 475 Interpretive Statements SINUS RHYTHM WITH FREQUENT VENTRICULAR PREMATURE COMPLEXES IN A BIGEMINAL PATTERN NONSPECIFIC ST & T-WAVE ABNORMALITY Compared to ECG 03/16/2025 18:59:15 Ventricular premature complex(es) now present Atrial fibrillation no longer present T-wave abnormality still present Electronically Signed On 03-19-2025 23:02:35 CDT by ANTONIETA PATHAK [email or web address]
[2025-03-16 22:44] VITALS: BP 129/59; PULSE 73; RESP 14; TEMP 36.8; O2SAT 94
[2025-03-16 22:50] VITALS: PULSE 75; O2SAT 93
[2025-03-16 23:35] LABS: Bilirubin Urine Negative (Negative); Blood Urine Negative (Negative); Glucose Urine UA Negative (Normal); Ketones Urine Negative (Negative); Leukocyte Esterase Urine Negative (Negative); Nitrate Urine Negative (Negative); Protein Urine Negative (Negative); Specific Gravity, Urine 1.012 (1.005-1.030); Urine Appearance Clear (CLEAR); Urine Color Yellow (Yellow)
[2025-03-16 23:40] LABS: Add Urine Microscopic? YES; Bacteria Urine None Seen /hpf; Hyaline Casts Urine 0-4 /lpf; RBC Urine 0-2 /hpf (0-2); Squamous Epithelial Cell Urine 0-5 /hpf (0-5); WBC Urine 0-5 /hpf (0-5)
[2025-03-17] VITALS (13 sets, daily range): BP systolic 102–127; BP diastolic 74–86; PULSE 62–127; RESP 16–24; TEMP 36.3–36.9; O2SAT 93–98
--- NOTE | 2025-03-17 01:13 | ECG_ITS ---
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
[2025-03-17 01:30] LABS: Troponin 5 6HR 17.31 ng/L (0-15)
[2025-03-17 01:31] LABS: Blood Urea Nitrogen 29 mg/dL (8-23); Calcium 8.7 mg/dL (8.5-10.5); Carbon Dioxide 27 mmol/L (22-29); Chloride 103 mmol/L (98-107); Creatinine Clr Calc Pharmacy 91.3276; Glucose 121 mg/dL (65-115); Magnesium 1.9 mg/dL (1.7-2.3); Osmolality Calculated 293 mOsm/kg (285-295); Sodium 138 mmol/L (136-145)
[2025-03-17 01:32] LABS: Troponin 5 6HR Delta -3.69 ng/L (0-12)
[2025-03-17 01:41] LABS: Chol HDL Ratio 2.69 mg/dL (1.0-5.00); Cholesterol 105 mg/dL (0-200); HDL Cholesterol 39 mg/dL (60-100); LDL Cholesterol Calculated 44 mg/dL (50-129); LDL HDL Ratio 1.13 RATIO (0.00-3.22); Triglycerides 112 mg/dL (0-150)
[2025-03-17] MEDS: albuterol 2.5 mg/3 mL Neb INHALATION (01:50)
[2025-03-17] MEDS: albuterol 2.5 MG/0.5 ML NEB INHALATION ×2 (07:14→20:31)
[2025-03-17] MEDS: budesonide 0.5 mg/2 mL Neb INHALATION ×2 (07:14→20:31)
--- NOTE | 2025-03-17 08:32 | P.PN_ITS ---
Subjective 2 Subjective: seen today denies cp , sob says he got recently diagnosed with CLL and has yet to go to oncology appointment. He does not know the results of his CT scan yet. Vitals/I&O/Wt Last Vital Signs Temp 97.5 F L 03/17/25 08:00 Pulse 96 03/17/25 08:00 Resp 24 H 03/17/25 08:00 BP 121/82 03/17/25 08:00 Pulse Ox 94 03/17/25 08:00 O2 Del Method Room Air 03/17/25 08:00 03/16/25 03/17/25 03/17/25 22:59 06:59 14:59 Intake Total 2.417 / 2.417 516.375 / 518.792 Output Total 750 / 750 Balance 2.417 / 2.417 -233.625 / -231.208 Weight last 48 hrs Weight 98.203 kg Weight 98.203 kg Weight 97.522 kg Weight 97.522 kg Physical Exam 2 Narrative: General Well-developed well-nourished tall male in no acute cardiopulmonary distress CV irregular irregular rate is controlled no loud murmur Lungs clear to auscultation bilaterally Abdomen positive bowel sounds soft nontender Calves trace to 1+ bilateral pretibial edema no asymmetry Data 03/16/25 19:12 03/17/25 01:01 A&P Assessment and plan (1) Chest pain: This is suspicious for angina and his arrhythmia and wall motion abnormalities also suspicious for ischemia. Cardiac enzyme baseline 21 dropped to 17 at 2 hours. 6 hours pending patient was given Lovenox by Dr. Burnett in the emergency department. I think the patient should start heparin drip in the morning after Lovenox 12-hour timeframe. (2) CAD (coronary artery disease): Patient had 2 vessels disease with the LAD and left main relatively clear. I think with his very low EF his recent nuclear test would be less sensitive and also with multivessel disease this may represent three-vessel disease. I encouraged patient to have a repeat angiogram and stents of possible or bypass if deemed appropriate. Dr. Hubbard was consulted by the ER physician Will test for LDL, high-sensitivity C-reactive protein and lipoprotein a in the morning. Substitute high-dose statin for his low-dose simvastatin from home (3) Atrial fibrillation with RVR: Rate control with metoprolol and diltiazem drip. (4) Premature ventricular contractions: Counseled the patient to avoid exercise until ischemic work are completed and if no intervention possible after he has his defibrillator implanted Plan 03/17/2025 Continue therapeutic Lovenox as per cardiology recommendations Continue aspirin. Discussed in detail with cardiology [facility] REPRESENTATIVE Leydi Quevedo. Plan for consultation with Dr. Smith in AM. Medically manage at this time. Continue to monitor in cardiac stepdown unit. Will most likely need Eliquis at time of discharge. Does have intermittent A-fib on telemetry. Patient does have an appointment with Dr. Arenas coming up as an outpatient as a recently diagnosed with CLL. Encourage patient to keep the appointment. CT chest and pelvis reviewed. Splenomegaly noted. PDMP PDMP Reviewed: Not Reviewed Attestations 2 Medical Necessity Statement*: Patient is admitted to hospital inpatient and expected to cross 2 midnights Diagnoses Chest pain R07.9 Coronary artery disease involving [place] coronary artery of [place] heart without angina pectoris I25.10 Coronary Disease-Associated Artery/Lesion type: [place] artery E[place] vs. transplanted heart: [place] heart Associated angina: without angina Atrial fibrillation with RVR I48.91 Premature ventricular contractions I49.3
[2025-03-17] MEDS: aspirin 81 mg EC Tablet PO (08:45)
[2025-03-17] MEDS: metoprolol succinate ER (24 HR) 25 mg Tablet 12.5 MG PO (08:46)
[2025-03-17] MEDS: docusate sodium 100 mg Capsule PO ×2 (08:47→17:50)
[2025-03-17] MEDS: pantoprazole DR 40 mg Tablet PO (08:48)
[2025-03-17] MEDS: FUROsemide 40 mg Tablet PO (08:48)
[2025-03-17] MEDS: enoxaparin 100 mg/mL Syringe SUBCUT (08:49)
--- NOTE | 2025-03-17 09:38 | PC.CHAP ---
Pastoral Care Encounter/Spiritual Assessment Type of Contact [] Declined personnel manager visit [] Patient/Family/Request visit [] Outpatient visit [] Follow-up visit [] Physician referral [] Code/Alert [x] Routine visit [] Staff referral [] Actively dying [] Patient sleeping [] Family support [] [] Out of room [] Palliative care [] [] Receiving care in room [] Pre-surgical visit [] Trauma [] Long length of stay [] ICU visit [] Other: Relational/Emotional Strength [] Patient feels connected with others/family/visitors/staff [] Distress [] Loneliness/isolation [] Abandonment Spirituality of Patient [x] Person of No [] Attends Denominational of their No [x] Believes in Prayer [] Reads Bible or Restorationism materials [] There are Spiritual issues to be addressed Printing Mechanist Interventions [x] Prayer [x] Active listening [] Non-anxious presence [] Spiritual/emotional support [] Crisis/trauma care [] Spiritual counseling [] Bereavement support [] Provided bereavement packet [x] Provided Bible/devotional materials [] Provided toy/stuffed animal, coloring book to patient or family member [] Provided Communion [] Anointing/[place] [] Salvation [x] Completed spiritual assessment [] Other: Impact on Illness or Injury [] Angry [] Fearful [] Anxious [] Often cries [] Exhaustion [] Unable to work [] Unable to attend anglican [] Unable to walk/stand [] Unable to read [] Unable to drive [] Unable to eat/drink [] Unable to sleep [] Unable to be with family [] Patient intubated [] Other: Summary Time spent with patient 15 min
--- NOTE | 2025-03-17 13:34 | P.CONIM_ITS ---
<Statement entered by Alfred Fay M.D - 03/19/25 09:40> Patient was evaluated and cared for in conjunction with an advanced practice practitioner.? I personally examined the patient and reviewed the chart and all pertinent data including imaging, telemetry, and laboratory results.? I discussed the patient in detail with the advanced practice practitioner.? Please see? their note for complete H&P, testing results and agreed upon plan of care for the patient. On review of prior imaging, it appears patient likely has ischemic cardiomyopathy is moderate to severe LAD stenosis and moderate to severe RCA stenosis as well. High likelihood of progression and causing LV dysfunction. Will recommend coronary angiogram with possible IFR of LAD and RCA. Circumflex artery had severe disease GENERAL: Patient is alert, awake and oriented x3. HEART: Regular S1 and S2 LUNGS: Clear to auscultate bilaterally. CENTRAL NERVOUS SYSTEM: Grossly nonfocal. EXTREMITIES: Lower extremities without edema bilaterally. Providers/Reason For Consult 2 Consulting Physician/Specialty*: Dr. Fay Reason for Consult*: Chest pain, afib rvr, systolic heart failure Requesting Physician: Dr. Dang Attending Physician: Aneta Dang MD Primary Care Provider: RADHA Kelsey History of Present Illness History of Present Illness Rizwan Lobato is a 74 year old male who is known to our service. He has a history of nonischemic cardiomyopathy with most recent EF in 23 being noraml at 55%. He been seen in the office with complaints of possible bradycardia and reduced exercise tolerance with shortness of breath. He had an event monitor that showed frequent episodes of V. tach. The longest was a 9 beat episode. Probnp was elevated, and he was placed on lasix. Limited echo was obtained that showed his ejection fraction had significantly dropped to 25 to 30% with diffuse hypokinesis of the left ventricle. Because of this a stress test was done urgently as well. This was negative for ischemia. At that time, medical therapy was decided upon. Life vest was placed. Previous angiogram was done by Dr. Pressley in 2019 for of January that showed a 60% stenosis in the ostial portion of the OM branches and a second portion contains 70 to 80% stenosis in the proximal area, RCA was large dominant vessel that contain 30 to 40% stenosis in the proximal portion. Because of the severity of the narrowing of the OM branch it was decided to attempt to intervene and it required fairly large guide. A balloon would not reach the lesion due to lack of guide support and severity of the stenosis. An attempt to stent this area was unsuccessful. He did perform balloon angioplasty there. At the time left main was normal. LAD was a medium to large caliber vessel containing some calcification minor luminal irregularities without significant stenosis. Circumflex had a 50% stenosis proximally. He states that he was working out and lifting weights as well as walking and he did well with his workout. He states when he got home he presented with feelings of chest pain that was sharp at the center of his chest and difficulty breathing with diaphoresis and nausea. In the ER he was noted to be in A-fib RVR with rates in the 130s. This is a new diagnosis for him. His previous Event monitor did not show any atrial fibrillation. He is currently not having any chest pain. Troponins were 21-17-17. Creatinine stable at 0.9. proBNP just over thousand. Clinically he appears euvolemic and does not have signs of fluid overload. He is now in sinus rhythm with rate controlled. He was given a bolus of diltiazem. He was then placed on a diltiazem drip and weaned off of this. Currently he is taking metoprolol 12.5 mg daily, Lovenox every 12 and Lasix 40 daily. He has a history of thrombocytopenia and platelet count was 128 with a new diagnosis of CLL. Review of Systems 2 Narrative: Consitutional: denies fever, chills, body aches, or changes in appetite, denies abnormal weight loss Card: Denies chest pain, palpitations, irregular heart rhythm, edema, syncope, shortness of breath, orthopnea, leg pain with exertion Resp: Denies shortness of breath, denies hemoptysis, denies cough GI: denies abdominal pain, denies nausea or voimting, denies blood in stool : denies blood in urine, denies dysuria Musc: Denies extremity pain, denies limited range of motion or recent injury Skin: Denies rash, lesions, or wounds, denies changes to skin color Neuro: Denies nubmness in extremities, h/a, s/s of stroke Luis A: Denies easy bruiding/bleeding Medications/Allergies Home Medications ?Medication ?Instructions ?Recorded ?Confirmed ?Last Taken ?Type docusate sodium 100 mg capsule 100 mg PO BID 08/06/21 03/16/25 02/17/25 History polyethylene glycol 3350 17 gram 17 g PO BID 08/06/21 03/16/25 02/17/25 History oral powder packet (Miralax) esomeprazole magnesium 20 mg 20 mg PO DAILY 06/02/22 0 03/16/25 02/17/25 History capsule,delayed release simvastatin 10 mg tablet (Zocor) 10 mg PO QPM 02/02/24 03/16/25 02/16/25 History aspirin 81 mg tablet,delayed 81 mg PO DAILY #100 tabs 02/08/24 03/16/25 02/17/25 Rx release (Adult Low Dose Aspirin) metoprolol succinate 25 mg 12.5 mg (1/2 x 25 mg) PO DA REFUGIO #45 07/25/24 03/16/25 02/17/25 Rx tablet,extended release 24 hr tabs fluticasone propionate 50 2 spray intranasal DAILY PRN 10/24/24 03/16/25 Unknown History mcg/actuation nasal allergies spray,suspension (Allergy Relief (fluticasone)) fluticasone 100 mcg-salmeterol 50 1 inh inhalation BID #60 ea 01/17/25 03/16/25 02/17/25 Rx mcg/dose blistr powdr for inhalation (Advair Diskus) furosemide 40 mg tablet (Lasix) 40 mg PO DAILY #30 tab s 02/25/25 03/16/25 Unknown Rx albuterol sulfate 90 mcg/actuation 2 puff inhalation Q 6H PRN asthma 03/04/25 03/17/25 Unknown History aerosol inhaler Allergies Allergy/AdvReac Type Severity Reaction Status Date / Time hydromorphone (From Dilaudid) AdvReac Severe ADR/ALGY-Hy Verified 03/04/25 14:43 potension Current Medications Generic Name Dose Route Start Last Admin Trade Name Freq PRN Reason Stop Dose Admin Albuterol Sulfate 2.5 mg 03/17/25 02:00 03/17/25 07:14 Albuterol 2.5 Mg/0.5 Ml Neb INHALATION 2.5 mg Q6H.RESP DANK Administration Albuterol Sulfate 2.5 mg 03/17/25 01:40 03/17/25 01:50 Albuterol 2.5 Mg/3 Ml Neb INHALATION 2.5 mg Q4H.RESPIRATORY PRN Administration SHORTNESS OF BREATH Aspirin 81 mg 03/17/25 09:00 03/17/25 08:45 Aspirin 81 Mg Ec Tablet PO 81 mg DAILY DANK Administration Budesonide 0.5 mg 03/17/25 08:00 03/17/25 07:14 Budesonide 0.5 Mg/2 Ml Neb INHALATION 0.5 mg BID.RESPIRATORY DANK Administration Docusate Sodium 100 mg 03/17/25 09:00 03/17/25 08:47 Docusate Sodium 100 Mg Capsule PO 100 mg BID DANK Administration Enoxaparin Sodium 100 mg 03/17/25 08:45 03/17/25 08:49 Enoxaparin 100 Mg/Ml Syringe 1 mg/kg (100 mg) 100 mg SUBCUT Administration Q12H DANK Furosemide 40 mg 03/17/25 09:00 03/17/25 08:48 Furosemide 40 Mg Tablet PO 40 mg DAILY DANK Administration Diltiazem HCl 100 mg/ Sodium 100 mls @ 0 mls/hr 03/16/25 19:45 03/16/25 23:42 Chloride IV 0 mg/hr .Q0M DANK 0 mls/hr Protocol Titration Per Protocol Metoprolol Succinate 12.5 mg 03/17/25 09:00 03/17/25 08:46 Metoprolol Succinate Er (24 Hr) 25 Mg Tablet PO 12.5 mg DAILY DANK Administration Pantoprazole Sodium 40 mg 03/17/25 09:00 03/17/25 08:[address] 40 Mg Tablet PO 40 mg DAILY DANK Administration Polyethylene Glycol 17 gm 03/17/25 09:00 03/17/25 08:49 Polyethylene Glycol 3350 Pkt 17 Gm PO Not Given BID DANK PFSH Acute 2 PFSH: Medical History CAD (coronary artery disease) Left ventricular dysfunction Premature ventricular contractions Elevated troponin Small bowel obstruction Aftercare following right hip joint replacement surgery High risk medication use Seropositive rheumatoid arthritis of multiple sites Small bowel obstruction Vomiting Chronic low back pain Hypercholesterolemia Atopic dermatitis Elevated liver enzymes Barretts esophagus Testosterone deficiency Hiatal hernia with GERD Hyperglycemia Surgical History Status post total hip replacement, right Total knee replacement status Status post arthroscopy of left shoulder History of appendectomy History of bowel resection History of hernia repair Family History Other Cancer Denies family history of Anesthesia complication Bleeding disorder Social History (Updated 03/16/25 @ 22:47 by Leonard Monge MD) Smoking and tobacco/nicotine status: former use of tobacco/nicotine Quit status (tobacco/nicotine): has quit using Year quit tobacco: 1991 Former quit date comment: Hx of 1 PPD x 21 Years Second hand smoke exposure: No Alcohol intake: current Alcohol intake frequency: few times a month Alcohol type: beer Substance/Drug Use: never Additional social history: Is companied by his Barbra and he wants full CODE STATUS as discussed with Leonard Monge MD on 03/16/2025. 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 Lives independently: Yes Household members: spouse Marital status: Current occupational status: retired 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[employer]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 Do you think of yourself as: Straight/Heterosexual Current gender identity: Male Vitals/I&O/Wt Last Vital Signs Temp 98.4 F 03/17/25 12:00 Pulse 69 03/17/25 12:00 Resp 18 03/17/25 12:00 BP 125/82 03/17/25 12:00 Pulse Ox 97 03/17/25 12:00 O2 Del Method Room Air 03/17/25 12:00 03/16/25 03/17/25 03/17/25 22:59 06:59 14:59 Intake Total 2.417 / 2.417 516.375 / 518.792 Output Total 750 / 750 Balance 2.417 / 2.417 -233.625 / -231.208 Weight last 48 hrs Weight 216 lb 8 oz Weight 216 lb 8 oz Weight 215 lb Weight 215 lb Physical Exam 2 Narrative: General: No apparent distress, healthy appearing, well nourished HENMT: normoceophalic Neck: No carotid bruit bilaterally Muskuloskeletal: Full ROM Respiratory: Normal respiratory effort, clear to auscultation bilaterally throughout all lung oscar, no use of accessory muscles Cardio: No JVD, regular rate, regular rhythm, S1 S2 normal, no murmurs, peripheral pulses 2+ radial palpated bilaterally Extremities: Full ROM, normal, normal capillary refill, no cyanosis or edema Neuro: Alert and oriented x4, no focal motor deficits Psych: Affect normal, denies suicidal ideation, mental status grossly normal Skin: No rashes or lesions noted, no wounds Data 03/16/25 19:12 03/17/25 01:01 A&P Assessment and plan (1) CAD (coronary artery disease): (2) Chest pain: (3) Atrial fibrillation with RVR: (4) Thrombocytopenia: (5) Left ventricular dysfunction: (6) Premature ventricular contractions: Plan Patient was in A-fib RVR but converted after Cardizem. Recommend continue metoprolol 12.5 p.o. daily, continue Lovenox, continue aspirin. BP is stable at this time. Due to chest pain with new onset low ejection fraction with hx of CAD, it is our recommendation patient proceeds with left heart cath, possible PCI. We plan on doing this tomorrow morning around 8:30. Patient is in agreement. Overall, he is euvolemic. If blood pressure tolerates, will add GDMT in the future. Continue life vest. At some point, will need to be transitioned to oral anticoagulation for afib. Will hold off for now until after heart cath. Thank you, Dr. Dang, for allowing us to care for this very pleasant 74 year old gentleman. PDMP PDMP Reviewed: Not Reviewed Consult Attestations 2 Medical Necessity Statement: Deferred to primary. Coding Level of Care Code [facility] Diagn[facility] Coronary artery disease involving [place] coronary artery of [place] heart without angina pectoris I25.10 Coronary Disease-Associated Artery/Lesion type: [place] artery [place] vs. transplanted heart: [place] heart Associated angina: without angina Chest pain, unspecified type R07.9 Chest pain type: unspecified Atrial fibrillation with RVR I48.91 Thrombocytopenia D69.6 Left ventricular dysfunction I51.9 Premature ventricular contractions I49.3
[2025-03-17] MEDS: acetaminophen 325 mg Tablet 650 MG PO (13:53)
--- NOTE | 2025-03-17 17:38 | PC.NURSE ---
per face to face conversation with Dr Fay, start the patient on amio gtt with a 150 bolus as patient is back in afib rvr. Nurse will obtain EKG per Dr Dang and start drip. Dr Dang notified of Dr Fay's order.
[2025-03-17] MEDS: amiodarone 150 MG/100 ML PREMIX 400 MG IV (17:50)
[2025-03-17] MEDS: polyethylene glycol 3350 Pkt 17 gm PO (17:51)
--- NOTE | 2025-03-17 19:06 | ECG_ITS ---
[facility] Dx Test Date: 2025-03-17 Pat Name: Rizwan Lobato Department: Room: 106 Gender: Male Safemaker: : 1950 Requested By: Aneta Dang Order Number: [id number] Adolfo MD: Alfred Fay M.D. Measurements Intervals Hydro Rate: 69 P: 93 OH: 186 QRS: 5 QRSD: 88 T: 20 QT: 413 QTc: 443 Interpretive Statements SINUS RHYTHM WITH OCCASIONAL VENTRICULAR PREMATURE COMPLEXES NONSPECIFIC ST & T-WAVE ABNORMALITY Compared to ECG 03/17/2025 01:04:06 No significant changes Electronically Signed On 03-18-2025 11:35:31 CDT by Alfred Fay M.D. [email or web address]
[2025-03-17] MEDS: atorvastatin 40 mg Tablet PO (20:12)
[2025-03-18] VITALS (33 sets, daily range): BP systolic 93–144; BP diastolic 57–86; PULSE 58–81; RESP 11–56; TEMP 36.5–37; O2SAT 86–99
[2025-03-18 04:57] LABS: Basophils % 0.2 %; Eosinophils # 0.2 10^3/uL (0.0-0.8); Eosinophils % 1.7 %; Hematocrit 40.2 % (37-53); Lymphocytes # 5.5 10^3/uL (0.8-4.8); Lymphocytes % 55.6 %; Mean Corpuscular HGB Conc 31.1 g/dL (30-55); Mean Corpuscular Hemoglobin 31.2 pg (27-33); Mean Corpuscular Volume 100.2 fl (82-101); Mean Platelet Volume 10.8 fL (7.4-10.4); Monocytes # 0.6 10^3/uL (0.2-0.9); Monocytes % 5.7 %; Neutrophils # 3.61 10^3/uL (1.8-7.7); Neutrophils % 36.7 %; Nucleated Red Blood Cells % 0 %; Platelet Count 102 10^3/cmm (157-399); Red Blood Count 4.01 10^6/uL (3.85-5.65); Red Cell Distribution Width 12.6 % (12.1-15.1); White Blood Count 9.85 10^3/uL (3.29-11.43)
[2025-03-18 05:33] LABS: Alanine Aminotransferase 33 U/L (0-41); Albumin Level 3.7 g/dL (3.5-5.2); Alkaline Phosphatase 98 U/L (40-130); Anion Gap 14.1 (5-19); Aspartate Amino Transferase 32 U/L (0-40); Blood Urea Nitrogen 19 mg/dL (8-23); Calcium 8.7 mg/dL (8.5-10.5); Carbon Dioxide 27 mmol/L (22-29); Chloride 105 mmol/L (98-107); Creatinine Clr Calc Pharmacy 82.4483; Globulin 2.1 g/dL (1.3-4.6); Glucose 97 mg/dL (65-115); Osmolality Calculated 296 mOsm/kg (285-295); Potassium 4.1 mmol/L (3.5-5.1); Sodium 142 mmol/L (136-145); Total Bilirubin 0.6 mg/dL (0.15-1.2); Total Protein 5.8 g/dL (6.6-8.7)
[2025-03-18 06:09] LABS: Slide Review Slide Review Perform
[2025-03-18] MEDS: albuterol 2.5 MG/0.5 ML NEB INHALATION ×3 (07:40→20:22)
[2025-03-18] MEDS: budesonide 0.5 mg/2 mL Neb INHALATION ×2 (07:41→20:22)
[2025-03-18] MEDS: metoprolol succinate ER (24 HR) 25 mg Tablet 12.5 MG PO (08:12)
[2025-03-18] MEDS: aspirin 81 mg EC Tablet PO (08:12)
[2025-03-18] MEDS: pantoprazole DR 40 mg Tablet PO (08:12)
[2025-03-18] MEDS: diphenhydrAMINE 50 mg Capsule PO (08:13)
--- NOTE | 2025-03-18 08:30 | XACV_ITS ---
Exam Room: [facility] Ht: 188 cm Wt: 98 kg BSA: 2.28 m2 Gender: Male : 1950 Any Known Allergies: Other Exam Priority: Routine Procedure(s): Procedure Description: Diagnostic procedure Procedure Description: PCI procedure Procedure Description: Drug Eluting Coronary Stent Procedure Description: PTCA Procedure Description: Cutting Balloon Procedure Description: Miscellaneous Procedure Description: ACT Procedure Description: Coronary Angiography Procedure Description: Pressure Wire Haydee STEWART; Diagnostic Cath Status: Urgent Diagnostic Findings * Left Main has no disease. * Mid Left Anterior Descending: significant 75% stenosis, moderately calcified, CARMELITA: 3 flow, iFR performed: ratio is 0.87. * Proximal Right Coronary Artery to Mid Right Coronary Artery: mild 40% stenosis, CARMELITA: 3 flow. * Proximal Circumflex: subtotal occlusion, heavily calcified, CARMELITA: 3 flow. * Second Obtuse Marginal Branch Segment: subtotal occlusion, heavily calcified, CARMELITA: 3 flow. * Coronary angiography shows right dominance. PCI Status: Urgent Interventional Findings * Mid Left Anterior Descendin% stenosis treated with a AB TREK 2.50X15 RX BALLOON, MDT R LARRY 3.0X34 SHANDRA, AB TREK 2.50X12 RX BALLOON, MDT R LARRY 2.75X12 SHANDRA, and MDT NC EUPHORA RX 3.05P25AC BALLOON. 0% residual stenosis, CARMELITA: 3 flow. * Proximal Circumflex: 99% stenosis treated with a AB MINI TREK 2.00X12 RX BALLOON, Shockwave c2+ coronary Intravascular Lithotripsy Catheter 3.0mm x 12mm, AB MINI TREK 2.00X8 RX BALLOON, MDT R LARRY 3.5X12 SHANDRA, and MDT NC EUPHORA RX 3.14P97NU BALLOON. 0% residual stenosis, CARMELITA: 3 flow. * Second Obtuse Marginal Branch Segment: 99% stenosis treated with a AB MINI TREK 2.00X12 RX BALLOON, AB MINI TREK 1.50X8 RX BALLOON, AB MINI TREK 2.00X12 RX BALLOON, Scoreflex Scoring PTCA Catheter 2.5mm x 10mm, MDT R LARRY 2.5X12 SHANDRA, and MDT NC EUPHORA RX 3.99R19ND BALLOON. 0% residual stenosis, CARMELITA: 3 flow. Conclusions 1. There is subtotal occlusion coronary artery disease with three vessel disease. 2. Mid Left Anterior Descending was treated with a Balloon, Drug Eluting Stent, Balloon, Drug Eluting Stent, and Balloon. 3. Proximal Circumflex was treated with a Balloon, Balloon, Balloon, Drug Eluting Stent, and Balloon. 4. Second Obtuse Marginal Branch Segment was treated with a Balloon, Balloon, Balloon, Balloon, Drug Eluting Stent, and Balloon. Recommendations * 1-Return to inpatient for close monitoring and routine cath care 2-Risk factor modification for secondary prevention 3-Statin and aspirin 81 mg life-long, if tolerated 4-Patient was pre-loaded with 600 mg of Plavix, continue Plavix 75mg p.o. daily for at least one year. We will assess at the end of one year again to continue if further or not 5-Continue optimal medical management 6-Follow up with Dr. Hubbard in four weeks and your primary care in 10 days. Interventional RX Recommendation: PCI w/o planned CABG Diagnostic RX Recommendation: PCI w/o planned CABG Pressures Phase:Rest AO : 114 / 59 ( 81 ) @ 10:05:00 AM 116 / 50 ( 78 ) @ 10:14:00 AM 93 / 66 ( 81 ) @ 10:41:00 AM 101 / 62 ( 79 ) @ 11:00:00 AM 85 / 46 ( 69 ) @ 11:20:00 AM 142 / 64 ( 87 ) @ 11:41:00 AM 113 / 64 ( 84 ) @ 11:59:00 AM Clinical Evaluation EBL: 5mL-10mL Procedural Details Procedure Consent Obtained. Pre-Procedure Time Out. Identified patient by full name and date of as verbalized by the patient/guarantor. Does the consent match the physician's order: Yes. Accurate & Complete Informed Consent: Yes. Inpatient/Outpatient History & Physical on Chart: Yes. If H&P is completed, is and addenduem needed: No. Visualize and Verify Site with Patient/Guarantor: N/A. Relevant Radiology Images available: Yes. The risks, benefits, and alternatives of sedation and/or procedure were discussed by physician. The patient agrees to continue. Procedure started. [facility] Clinical Fraility Score: 3: Managing Well. Meter Inspector Indications: LV Dysfunction. Chest Pain Symptom Assessment: Atypical Angina. Cardiovascular Instability: No. Correct patient, site and procedure confirmed by cath team. PERRLA. Strong, equal hand state comptroller bilaterally. Lungs clear x 5 lobes. IV Site on Arrival: 20 gauge in the right anticubital. IV Site on Arrival: 18 gauge in the left wrist. IV Fluids: 0.9% NaCl at KVO. 0 mL infused prior to clinical laboratory assistant. Pre Procedural Pulses: bilateral dorsalis pedis was 3+. Pre Procedural Pulses: bilateral posterior tibial was 3+. Oxygen started at 2liters/min via nasal canula. bilateral groins was prepped with chloroprep then draped in the usual sterile fashion. Physician notified. Patient's family in the clinical laboratory assistant waiting room. Dr. Hubbard will update at the completion of the procedure. Equipment: 6F - Femoral. Cardiac Cath Pack. ACIST Manifold Kit Model BT 2000. Heparinized Saline (2 units/mL), 1000 mL bag. Kit, Micropuncture. Baseline sample Acquired. HR: 73 BPM. Physician arrived. Physician scrubbed in. Immediate Pre-Procedure Time Out. Correct Patient: Yes; Correct Procedure: Yes; Correct Site: Yes; Correct Patient Position: Yes; Correct Supplies: Yes; Dried Flammable Prep: Yes; Blood Products Available: N/A. Lidocaine 1% infiltrated to the right groin. Arterial access obtained with micropuncture set. A 5 spanish JL4 catheter in over the standard J wire. Multiple views taken of left coronary artery. Catheter removed over the standard J wire. A 5 spanish JR4 catheter in over the standard J wire. Multiple views taken of right coronary artery. Catheter removed over the standard J wire. 6 spanish XB 3.5 guide catheter was inserted over the standard J wire. Runthrough guidewire was advanced through the guide catheter to lesion in the OM. The patients spouse, Barbra, was updated by Adam Hernandes RN, MANUFACTURING ENGINEER CHIEF. Inflation number : 1 A AB MINI TREK 2.00X12 RX BALLOON was prepped and advanced across the 2nd Ob Alaina , then inflated to 8 SIGIFREDO for 0:13 seconds. Inflation number: 1 The AB MINI TREK 2.00X12 RX BALLOON was reinflated across the Prox CX, to 18 SIGIFREDO for 0:18 seconds. Balloon out. Inflation number : 2 A AB MINI TREK 1.50X8 RX BALLOON was prepped and advanced across the 2nd Ob Alaina , then inflated to 20 SIGIFREDO for 0:22 seconds. Inflation number: 3 The AB MINI TREK 1.50X8 RX BALLOON was reinflated across the 2nd Ob [place], to 20 SIGIFREDO for 0:17 seconds. Inflation number: 4 The AB MINI TREK 1.50X8 RX BALLOON was reinflated across the 2nd Ob [place], to 20 SIGIFREDO for 0:12 seconds. Balloon out. Inflation number : 5 A AB MINI TREK 2.00X12 RX BALLOON was prepped and advanced across the 2nd Ob [place] , then inflated to 14 SIGIFREDO for 0:24 seconds. Inflation number: 6 The AB MINI TREK 2.00X12 RX BALLOON was reinflated across the 2nd Ob [place], to 14 SIGIFREDO for 0:14 seconds. Inflation number: 7 The AB MINI TREK 2.00X12 RX BALLOON was reinflated across the 2nd Ob [place], to 14 SIGIFREDO for 0:17 seconds. Inflation number: 8 The AB MINI TREK 2.00X12 RX BALLOON was reinflated across the 2nd Ob [place]ain[place], to 14 SIGIFREDO for 0:16 seconds. Balloon out. Inflation number : 9 A Scoreflex Scoring PTCA Catheter 2.5mm x 10mm was prepped and advanced across the 2nd Ob Alaina , then inflated to 12 SIGIFREDO for 0:31 seconds. Inflation number: 10 The Scoreflex Scoring PTCA Catheter 2.5mm x 10mm was reinflated across the 2nd Ob Alaina, to 8 SIGIFREDO for 0:27 seconds. ACT drawn. Results 295 seconds. Therapeutic limits - pre-heparin administration 90-150 seconds and monitoring heparin during a vascular procedure >250 seconds. Inflation number: 11 The Scoreflex Scoring PTCA Catheter 2.5mm x 10mm was reinflated across the 2nd Ob Alaina, to 8 SIGIFREDO for 0:23 seconds. Balloon out. Inflation number : 2 A Shockwave c2+ coronary Intravascular Lithotripsy Catheter 3.0mm x 12mm was prepped and advanced across the Prox CX , then inflated to 4 SIGIFREDO for 0:28 seconds. Inflation number: 3 The Shockwave c2+ coronary Intravascular Lithotripsy Catheter 3.0mm x 12mm was reinflated across the Prox CX, to 4 SIGIFREDO for 0:16 seconds. Inflation number: 4 The Shockwave c2+ coronary Intravascular Lithotripsy Catheter 3.0mm x 12mm was reinflated across the Prox CX, to 4 SIGIFREDO for 0:20 seconds. Inflation number: 5 The Shockwave c2+ coronary Intravascular Lithotripsy Catheter 3.0mm x 12mm was reinflated across the Prox CX, to 4 SIGIFREDO for 0:20 seconds. Inflation number: 6 The Shockwave c2+ coronary Intravascular Lithotripsy Catheter 3.0mm x 12mm was reinflated across the Prox CX, to 4 SIGIFREDO for 0:19 seconds. Inflation number: 7 The Shockwave c2+ coronary Intravascular Lithotripsy Catheter 3.0mm x 12mm was reinflated across the Prox CX, to 4 SIGIFREDO for 0:19 seconds. Inflation number: 8 The Shockwave c2+ coronary Intravascular Lithotripsy Catheter 3.0mm x 12mm was reinflated across the Prox CX, to 4 SIGIFREDO for 0:17 seconds. Inflation number: 9 The Shockwave c2+ coronary Intravascular Lithotripsy Catheter 3.0mm x 12mm was reinflated across the Prox CX, to 4 SIGIFREDO for 0:19 seconds. Inflation number: 10 The Shockwave c2+ coronary Intravascular Lithotripsy Catheter 3.0mm x 12mm was reinflated across the Prox CX, to 4 SIGIFREDO for 0:19 seconds. Inflation number: 11 The Shockwave c2+ coronary Intravascular Lithotripsy Catheter 3.0mm x 12mm was reinflated across the Prox CX, to 4 SIGIFREDO for 0:18 seconds. Inflation number: 12 The Shockwave c2+ coronary Intravascular Lithotripsy Catheter 3.0mm x 12mm was reinflated across the Prox CX, to 4 SIGIFREDO for 0:17 seconds. Inflation number: 13 The Shockwave c2+ coronary Intravascular Lithotripsy Catheter 3.0mm x 12mm was reinflated across the Prox CX, to 4 SIGIFREDO for 0:19 seconds. Balloon out. Results checked. Inflation Number : 12 A MDT R LARRY 2.5X12 SHANDRA -Lot Number# [id number] Exp. . was prepped and advanced across the 2nd Ob Alaina. The stent was deployed at 14 SIGIFREDO for 0:17 seconds. Stent balloon out over wire. Inflation number : 13 A MDT NC EUPHORA RX 3.83R63DW BALLOON was prepped and advanced across the 2nd Ob Alaina , then inflated to 12 SIGIFREDO for 0:14 seconds. Inflation number: 14 The MDT NC EUPHORA RX 3.58R96PI BALLOON was reinflated across the 2nd Ob Alaina, to 12 SIGIFREDO for 0:19 seconds. Inflation number: 15 The MDT NC EUPHORA RX 3.85D85QY BALLOON was reinflated across the 2nd Ob Alaina, to 12 SIGIFREDO for 0:15 seconds. Balloon out. Inflation number : 14 A AB MINI TREK 2.00X8 RX BALLOON was prepped and advanced across the Prox CX , then inflated to 18 SIGIFREDO for 0:27 seconds. Balloon out. Inflation Number : 15 A MDT R LARRY 3.5X12 SHANDRA -Lot Number# [id number] Exp. was prepped and advanced across the Prox CX. The stent was deployed at 12 SIGIFREDO for 0:15 seconds. Stent balloon out over wire. Inflation number : 16 A MDT NC EUPHORA RX 3.37M92GK BALLOON was prepped and advanced across the Prox CX , then inflated to 14 SIGIFREDO for 0:13 seconds. Inflation number: 17 The MDT NC EUPHORA RX 3.61K53DO BALLOON was reinflated across the Prox CX, to 14 SIGIFREDO for 0:13 seconds. Balloon out. iFR guidewire was advanced through the guide catheter to lesion in the mid LAD. iFR guidewire out. ACT drawn. Results 291 seconds. Therapeutic limits - pre-heparin administration 90-150 seconds and monitoring heparin during a vascular procedure >250 seconds. Runthrough guidewire out. Runthrough guidewire in. iFR guidewire was advanced through the guide catheter to lesion in the mid LAD. iFR spot of the Mid LAD = 0.87 with a pullback of 0.85. iFR wire out. A 2nd Runthrough guidewire was advanced through the guide catheter to lesion in the mid LAD. 1st Runthrough guidewire out. Inflation number : 1 A AB TREK 2.50X15 RX BALLOON was prepped and advanced across the Mid LAD , then inflated to 14 SIGIFREDO for 0:13 seconds. Inflation number: 2 The AB TREK 2.50X15 RX BALLOON was reinflated across the Mid LAD, to 18 SIGIFREDO for 0:13 seconds. Balloon out. Inflation Number : 3 A MDT R LARRY 3.0X34 SHANDRA -Lot Number# [id number] Exp. was prepped and advanced across the Mid LAD. The stent was deployed at 14 SIGIFREDO for 0:20 seconds. Stent balloon out over wire. The patients spouse, Barbra, was updated by Adam Hernandes RN, MANUFACTURING ENGINEER CHIEF. Inflation number : 4 A AB TREK 2.50X12 RX BALLOON was prepped and advanced across the Mid LAD , then inflated to 12 SIGIFREDO for 0:14 seconds. Inflation number: 5 The AB TREK 2.50X12 RX BALLOON was reinflated across the Mid LAD, to 12 SIGIFREDO for 0:11 seconds. Balloon out. Siloam 3.0mm x 15mm stent inserted and unable to cross, removed intact. Guideliner in OTW. Inflation Number : 6 A MDT R LARRY 2.75X12 SHANDRA -Lot Number# [id number] EXP 06/19/27 was prepped and advanced across the Mid LAD. The stent was deployed at 10 SIGIFREDO for 0:12 seconds. Inflation number: 7 The stent balloon was then re-inflated across the Mid LAD to 12 SIGIFREDO for 0:10 seconds. Stent balloon out over wire. Results checked. Inflation number : 8 A MDT NC EUPHORA RX 3.18C26WP BALLOON was prepped and advanced across the Mid LAD , then inflated to 6 SIGIFREDO for 0:13 seconds. Inflation number: 9 The MDT NC EUPHORA RX 3.54J13EE BALLOON was reinflated across the Mid LAD, to 6 SIGIFREDO for 0:10 seconds. Inflation number: 10 The MDT NC EUPHORA RX 3.90P27FJ BALLOON was reinflated across the Mid LAD, to 8 SIGIFREDO for 0:13 seconds. Inflation number: 11 The MDT NC EUPHORA RX 3.86G56DV BALLOON was reinflated across the Mid LAD, to 8 SIGIFREDO for 0:17 seconds. Balloon out. Results checked. Guideliner out. Wire out. ACT drawn. Results seconds. Therapeutic limits - pre-heparin administration 90-150 seconds and monitoring heparin during a vascular procedure >250 seconds. Guide catheter out. A Right femoral angiogram was performed to determine safe placement of closure device. Dr. Hubbard scrubbed out. A Suture was successful obtaining hemostatsis at the Right Femoral artery insertion site. Sheath(s) sutured into position with 2-0 silk and sterile 4x4's and Op-site applied over the site. No oozing or signs and symptoms of hematoma noted. Arterial sheath flushed and connected to tranducer and pressure bag with heparinized saline. Post Procedure: Pulses reassessed and unchanged. PERRLA. Strong, equal hand state comptroller bilaterally. No VTE prophylaxis required. Medication's Wasted: Lidocaine 1% = 4 mL. Medication's Wasted: Nitro = 50 mg. Medication's Wasted: Other = Versed 1 mg. Medication's Wasted: Other = Fentanyl 50 mcg. Total IV fluids: 125 mL. PCI Indication: CAD (without ischemic symptoms). Post-op diagnosis: PCI of the OM 2, Proximal CX and Mid LAD. Complications: none. Estimated blood loss: 5mL-10mL. Responsiveness - Normal response to verbal stimuli; alert and oriented, PERRLA. Airway - Unaffected, no intervention required; spontaneous ventilation. Circulation: W/N/L, pulses unchanged. Nausea/Vomiting: No. Procedure completed. Patient transferred by bed to 1st floor. Vital chart was stopped. Access Site Site: Right Femoral artery Sheath Size: 6 Fr Hemostasis Method: Suture Hemostasis Success: Successful Procedure Medications Start: 8:52 AM Stop: 8:52 AM Medication: Versed Amount: 1 mg Route: I.V. Start: 8:52 AM Stop: 8:52 AM Medication: Fentanyl Amount: 50 mcg Route: I.V. Start: 8:59 AM Stop: 8:59 AM Medication: Fentanyl Amount: 25 mcg Route: I.V. Start: 9:03 AM Stop: 9:03 AM Medication: Versed Amount: 1 mg Route: I.V. Start: 9:03 AM Stop: 9:03 AM Medication: Fentanyl Amount: 25 mcg Route: I.V. Start: 9:13 AM Stop: 9:13 AM Medication: Heparin Amount: 7000 units Route: I.V. Start: 9:23 AM Stop: 9:23 AM Medication: Fentanyl Amount: 25 mcg Route: I.V. Start: 9:36 AM Stop: 9:36 AM Medication: Versed Amount: 1 mg Route: I.V. Start: 9:36 AM Stop: 9:36 AM Medication: Fentanyl Amount: 25 mcg Route: I.V. Start: 9:41 AM Stop: 9:41 AM Medication: Heparin Amount: 2000 units Route: I.V. Start: 9:54 AM Stop: 9:54 AM Medication: Fentanyl Amount: 25 mcg Route: I.V. Start: 9:59 AM Stop: 9:59 AM Medication: Aggrastat 12.5 mg/250 mL Amount: 49 ml Route: I.V. bolus Start: 10:01 AM Stop: 10:01 AM Medication: Aggrastat 12.5 mg/250 mL Amount: 17.6 ml/hr Route: I.V. drip Start: 10:14 AM Stop: 10:14 AM Medication: Versed Amount: 1 mg Route: I.V. Start: 10:14 AM Stop: 10:14 AM Medication: Fentanyl Amount: 25 mcg Route: I.V. Start: 10:47 AM Stop: 10:47 AM Medication: Fentanyl Amount: 25 mcg Route: I.V. Start: 11:02 AM Stop: 11:02 AM Medication: Versed Amount: 1 mg Route: I.V. Start: 11:04 AM Stop: 11:04 AM Medication: Fentanyl Amount: 25 mcg Route: I.V. Start: 11:20 AM Stop: 11:20 AM Medication: Plavix Amount: 600 mg Route: P.O. I, the attending physician, have reviewed and verified all procedure medications. Yes, all medications given per verbal order History/Risk Factors Hypertension: No Dyslipidemia: No Peripheral Arterial Disease (PAD): No Myocardial Infarction (ME): No Obesity: No Renal Disease: No Tobacco Use: Former Prior Interventions PCI: No CABG: No Valve Surgery: No Report Signatures Finalized by Rm Hubbard MD on 03/23/2025 10:19 PM
--- NOTE | 2025-03-18 08:35 | PC.NURSE ---
to cardiac labor law professor at this time
--- NOTE | 2025-03-18 08:52 | W.PM.OPSUD ---
Surgery/Procedure H&P Update DATE OF PROCEDURE: March 18, 2025 DATE H&P PERFORMED: 03/17/25 H&P UPDATE INFORMATION: I have reviewed H&P completed within last 30 days, I have examined patient prior to procedure and No changes to prior documentation PREOP DIAGNOSIS: New onset of heart failure, severe LV dysfunction PRIMARY INDICATION FOR PROCEDURE: Severe LV dysfunction PATIENT REASSESSED PRIOR TO SEDATION, WITH NO CHANGE NOTED: Yes PHYSICAL EXAM: alert, oriented x 3, clear to auscultation bilaterally, regular rate & rhythm and operative site marked AIRWAY EVAL/ANESTHESIA PLAN: ASA II and Patient agrees to continue as planned ADDITIONAL INFORMATION: Patient has been explained all risk-benefit and alternative for the procedure. Patient understand risk for stroke major bleed which is 2%. Patient understand 6% risk for contrast-induced nephropathy hematoma infection pseudoaneurysm urgent emergent bypass or vascular surgery thromboembolism. Patient receptive and would like to proceed with it.
--- NOTE | 2025-03-18 11:13 | PM.PN ---
Subjective Subjective: seen this am going for coronary angiogram at 8.30 AM denies cp, sob, reviewed results of his ct abd from outpatient, recommended he f/u with dr. lynn Vitals/I&O/Wt Last Vital Signs Temp 97.9 F 03/18/25 08:00 Pulse 75 03/18/25 08:00 Resp 17 03/18/25 08:00 BP 108/74 03/18/25 08:00 Pulse Ox 93 03/18/25 08:00 O2 Del Method Room Air 03/18/25 08:00 03/17/25 03/18/25 03/18/25 22:59 06:59 14:59 Intake Total 710 / 950 200 / 1150 Output Total 698 / 1398 Balance 12 448 200 / -248 Weight last 48 hrs Weight 96.615 kg Weight 98.203 kg Weight 98.203 kg Weight 97.522 kg Weight 97.522 kg Physical Exam Narrative: General Well-developed well-nourished tall male in no acute cardiopulmonary distress CV irregular irregular rate is controlled no loud murmur Lungs clear to auscultation bilaterally Abdomen positive bowel sounds soft nontender Calves trace pretibial edema no asymmetry Data 03/18/25 04:15 03/18/25 04:15 A&P Assessment and plan (1) Chest pain: This is suspicious for angina and his arrhythmia and wall motion abnormalities also suspicious for ischemia. Cardiac enzyme baseline 21 dropped to 17 at 2 hours. 6 hours pending patient was given Lovenox by Dr. Burnett in the emergency department. I think the patient should start heparin drip in the morning after Lovenox 12-hour timeframe. (2) CAD (coronary artery disease): Patient had 2 vessels disease with the LAD and left main relatively clear. I think with his very low EF his recent nuclear test would be less sensitive and also with multivessel disease this may represent three-vessel disease. I encouraged patient to have a repeat angiogram and stents of possible or bypass if deemed appropriate. Dr. Hubbard was consulted by the ER physician Will test for LDL, high-sensitivity C-reactive protein and lipoprotein a in the morning. Substitute high-dose statin for his low-dose simvastatin from home (3) Atrial fibrillation with RVR: Rate control with metoprolol and diltiazem drip. (4) Premature ventricular contractions: Counseled the patient to avoid exercise until ischemic work are completed and if no intervention possible after he has his defibrillator implanted Plan 03/17/2025 Continue therapeutic Lovenox as per cardiology recommendations Continue aspirin. Discussed in detail with cardiology DIRECT MAIL MANAGER Leydi Quevedo. Plan for consultation with Dr. Smith in AM. Medically manage at this time. Continue to monitor in cardiac stepdown unit. Will most likely need Eliquis at time of discharge. Does have intermittent A-fib on telemetry. Patient does have an appointment with Dr. Lynn coming up as an outpatient as a recently diagnosed with CLL. Encourage patient to keep the appointment. CT chest and pelvis reviewed. Splenomegaly noted. 03/18/2025 plan for coronary angiogram today continue lovenox, aspirin, further recs per cardio plan for eliquis at dc amio gtt started yesterday for afib rvr, hr now controlled Patient does have an appointment with Dr. Lynn coming up as an outpatient as a recently diagnosed with CLL. Encourage patient to keep the appointment. CT chest and pelvis reviewed. Splenomegaly noted. check bmp, mg in am hold lasix today PDMP PDMP Reviewed: Not Reviewed Attestations Medical Necessity Statement*: Patient is admitted to hospital inpatient and expected to cross 2 midnights Diagnoses Chest pain, unspecified type R07.9 Chest pain type: unspecified Coronary artery disease involving [place] coronary artery of [place] heart without angina pectoris I25.10 Coronary Disease-Associated Artery/Lesion type: [place] artery [place] vs. transplanted heart: absent[place] heart Associated angina: without angina Atrial fibrillation with RVR I48.91 Premature ventricular contractions I49.3
--- NOTE | 2025-03-18 11:29 | PM.PROC ---
Procedure Note: Date of procedure: 03/18/25 Pre-procedure diagnosis: New onset of heart failure, LV dysfunction Post-procedure diagnosis: same Procedure: Left heart cath was performed Left main was normal LAD has mid high-grade stenosis by IFR 0.87 Left circumflex has high-grade obtuse marginal 2 calcified, moderate ostial obtuse marginal 1 and proximal high-grade calcified stenosis RCA has 40 to 50% mid stenosis it is a dominant vessel Lithotripsy guided PCI to proximal RCA with drug-eluting stent Score flex balloon guided balloon angioplasty and drug-eluting stent placement to obtuse marginal 2 ostial segment because of high calcification Balloon angioplasty to obtuse marginal 1 since it was jailed by the stent 2 overlapping drug-eluting stent to mid LAD with IFR guidance appeared to be significant. 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 Excellent angiographic result with CARMELITA-3 flow was noted. Due to tortuosity we went through right common femoral artery and has not used radial artery. Plan: Patient has been loaded with 60 mg of Plavix and aspirin 325 mg Continue IV fluid 100 mL/h for 1 L Aggrastat for 2 hours Once PTT less than 45 right common femoral artery sheath will be pulled out Bedrest for 5 hours CBC BMP in the morning Full note to be dictated Coding Level of Care Code Acute Code for Veronika Laguerre
[2025-03-18] MEDS: sodium chloride 0.9% 1,000 ML 100 ML IV ×2 (11:40→18:28)
--- NOTE | 2025-03-18 12:43 | PC.NURSE ---
Addendum entered by Anais Juares RN 03/18/25 13:25: aggrastat infusing at 17.6 mls from landscape laborer.received order from gabriel nunn (landscape laborer) to ct at 1330 Original Note: received from cardiac landscape laborer via bed at 1140.report received.pt is alert and awake and oriented x 4.denies pain.sr with freq pvc's on monitor.right femoral arterial sheath is intact to pressurized system.right groin drsg is dry and intact. no hematoma noted.right leg is warm to touch and with brisk capillary refill.palpable right dp pulse noted.pt instructed in activity restrictions s/p femoral artery procedure..and instructed to notify staff for any sob,chest pain,bleeding,numbness,or for any concerns at all.pt verb understanding of instructions.
[2025-03-18] MEDS: FUROsemide 40 mg Tablet PO (13:22)
--- NOTE | 2025-03-18 13:26 | PC.NURSE ---
aggrastat dc'd at this time.1330.
[2025-03-18 15:39] LABS: Partial Thromboplastin Time 24.4 SECONDS (23.9-36.7)
[2025-03-18] MEDS: HYDROcodone-acetaminophen 5-325 mg Tablet 1 TAB PO (17:46)
--- NOTE | 2025-03-18 18:00 | PC.NURSE ---
right arterial sheath pulled at 1600.manual pressure held x 20 min.vss through-out procedure.no hematoma formation noted.right leg remained warm to touch and with brisk capillary refill.palpable dp noted.pt instructed in activity restrictions s/p femoral arterial sheath pull...and instructed to notify staff for any bleeding,pain,sob,numbness...or for any concerns at all.pt verb understanding of instructions
[2025-03-18] MEDS: atorvastatin 40 mg Tablet PO (20:46)
[2025-03-18] MEDS: docusate sodium 100 mg Capsule PO (21:24)
[2025-03-18] MEDS: polyethylene glycol 3350 Pkt 17 gm PO (21:24)
[2025-03-19] VITALS (8 sets, daily range): BP systolic 103–133; BP diastolic 62–78; PULSE 64–78; RESP 10–26; TEMP 36.6–37; O2SAT 95–97
[2025-03-19 05:44] LABS: Basophils % 0.1 %; Eosinophils # 0.2 10^3/uL (0.0-0.8); Hematocrit 39.7 % (37-53); Lymphocytes # 3.5 10^3/uL (0.8-4.8); Lymphocytes % 47.1 %; Mean Corpuscular HGB Conc 31.5 g/dL (30-55); Mean Corpuscular Volume 98.5 fl (82-101); Mean Platelet Volume 10.7 fL (7.4-10.4); Monocytes # 0.5 10^3/uL (0.2-0.9); Monocytes % 6.9 %; Neutrophils # 3.29 10^3/uL (1.8-7.7); Neutrophils % 43.8 %; Nucleated Red Blood Cells % 0 %; Platelet Count 97 10^3/cmm (157-399); Red Blood Count 4.03 10^6/uL (3.85-5.65); Red Cell Distribution Width 12.6 % (12.1-15.1); White Blood Count 7.52 10^3/uL (3.29-11.43)
[2025-03-19 06:01] LABS: Alanine Aminotransferase 41 U/L (0-41); Albumin Level 3.6 g/dL (3.5-5.2); Alkaline Phosphatase 115 U/L (40-130); Aspartate Amino Transferase 42 U/L (0-40); Blood Urea Nitrogen 18 mg/dL (8-23); Calcium 8.7 mg/dL (8.5-10.5); Carbon Dioxide 28 mmol/L (22-29); Chloride 105 mmol/L (98-107); Creatinine Clr Calc Pharmacy 81.8573; Globulin 2.2 g/dL (1.3-4.6); Glucose 92 mg/dL (65-115); Magnesium 1.9 mg/dL (1.7-2.3); Osmolality Calculated 296 mOsm/kg (285-295); Sodium 142 mmol/L (136-145); Total Bilirubin 0.9 mg/dL (0.15-1.2); Total Protein 5.8 g/dL (6.6-8.7)
[2025-03-19 06:41] LABS: Slide Review Slide Review Perform
[2025-03-19] MEDS: clopidogrel 75 mg Tablet PO (07:59)
[2025-03-19] MEDS: polyethylene glycol 3350 Pkt 17 gm PO ×2 (07:59→16:58)
[2025-03-19] MEDS: docusate sodium 100 mg Capsule PO ×2 (07:59→16:58)
[2025-03-19] MEDS: metoprolol succinate ER (24 HR) 25 mg Tablet 12.5 MG PO (07:59)
[2025-03-19] MEDS: FUROsemide 40 mg Tablet PO (08:00)
[2025-03-19] MEDS: pantoprazole DR 40 mg Tablet PO (08:00)
[2025-03-19] MEDS: aspirin 81 mg EC Tablet PO (08:00)
[2025-03-19] MEDS: budesonide 0.5 mg/2 mL Neb INHALATION (08:45)
[2025-03-19] MEDS: albuterol 2.5 MG/0.5 ML NEB INHALATION ×2 (08:45→14:09)
--- NOTE | 2025-03-19 11:40 | PC.SOCIAL ---
IMM Updated Updated pt on IMM. No questions voiced. Provided pt a copy. Initialed, dated, & timed a copy & placed in chart.
--- NOTE | 2025-03-19 12:21 | P.PN_ITS ---
Subjective 2 Subjective: seen today chest pain free overnight underwent coronary angiogram yesterday with PCI Vitals/I&O/Wt Last Vital Signs Temp 97.8 F 03/19/25 11:52 Pulse 73 03/19/25 11:52 Resp 14 03/19/25 11:52 BP 117/78 03/19/25 11:52 Pulse Ox 97 03/19/25 11:52 O2 Del Method Room Air 03/19/25 08:46 03/18/25 03/19/25 03/19/25 22:59 06:59 14:59 Intake Total 830 / 1190 200 / 1390 360 / 360 Output Total 900 / 900 200 / 1100 Balance -70 / 290 0 / 290 360 / 360 Weight last 48 hrs Weight 95.481 kg Weight 96.615 kg Physical Exam 2 Narrative: General Well-developed well-nourished tall male in no acute cardiopulmonary distress CV irregular irregular rate is controlled no loud murmur Lungs clear to auscultation bilaterally Abdomen positive bowel sounds soft nontender Calves trace pretibial edema no asymmetry pedal pulses intact b/l Data 03/19/25 04:49 03/19/25 04:49 A&P Assessment and plan (1) Chest pain: This is suspicious for angina and his arrhythmia and wall motion abnormalities also suspicious for ischemia. Cardiac enzyme baseline 21 dropped to 17 at 2 hours. 6 hours pending patient was given Lovenox by Dr. Burnett in the emergency department. I think the patient should start heparin drip in the morning after Lovenox 12-hour timeframe. (2) CAD (coronary artery disease): Patient had 2 vessels disease with the LAD and left main relatively clear. I think with his very low EF his recent nuclear test would be less sensitive and also with multivessel disease this may represent three-vessel disease. I encouraged patient to have a repeat angiogram and stents of possible or bypass if deemed appropriate. Dr. Hubbard was consulted by the ER physician Will test for LDL, high-sensitivity C-reactive protein and lipoprotein a in the morning. Substitute high-dose statin for his low-dose simvastatin from home (3) Atrial fibrillation with RVR: Rate control with metoprolol and diltiazem drip. (4) Premature ventricular contractions: Counseled the patient to avoid exercise until ischemic work are completed and if no intervention possible after he has his defibrillator implanted Plan 03/17/2025 Continue therapeutic Lovenox as per cardiology recommendations Continue aspirin. Discussed in detail with cardiology HOST/HOSTESS Leydi Quevedo. Plan for consultation with Dr. Smith in AM. Medically manage at this time. Continue to monitor in cardiac stepdown unit. Will most likely need Eliquis at time of discharge. Does have intermittent A-fib on telemetry. Patient does have an appointment with Dr. Arenas coming up as an outpatient as a recently diagnosed with CLL. Encourage patient to keep the appointment. CT chest and pelvis reviewed. Splenomegaly noted. 03/18/2025 plan for coronary angiogram today continue lovenox, aspirin, further recs per cardio plan for eliquis at dc amio gtt started yesterday for afib rvr, hr now controlled Patient does have an appointment with Dr. Arenas coming up as an outpatient as a recently diagnosed with CLL. Encourage patient to keep the appointment. CT chest and pelvis reviewed. Splenomegaly noted. check bmp, mg in am hold lasix today 03/19/2025 continue aspirin, atovastatin, plavix, start entresto today continue lopressor 12.5 bid continue to monitor in csu pt s/p pci cath procedure note reviewed. cardiology recommendations appreciated. PDMP PDMP Reviewed: Not Reviewed Attestations 2 Medical Necessity Statement*: requires inpatient monitoring while pt started on entresto pt s/p angiogram with PCI Diagnoses Chest pain, unspecified type R07.9 Chest pain type: unspecified Coronary artery disease involving [place] coronary artery of [place] heart without angina pectoris I25.10 Coronary Disease-Associated Artery/Lesion type: [place] artery [place] vs. transplanted heart: [place] heart Associated angina: without angina Atrial fibrillation with RVR I48.91 Premature ventricular contractions I49.3
--- NOTE | 2025-03-19 13:49 | P.PN_ITS ---
Subjective 2 Subjective: Patient is doing well today with no complaints. Blood pressure and heart rate controlled. He remains in sinus rhythm. He is status post 2 stents to the LAD and stenting to the OM 1. He has frequent PVCs but overall asymptomatic. Vitals/I&O/Wt Last Vital Signs Temp 97.8 F 03/19/25 11:52 Pulse 73 03/19/25 11:52 Resp 14 03/19/25 11:52 BP 117/78 03/19/25 11:52 Pulse Ox 97 03/19/25 11:52 O2 Del Method Room Air 03/19/25 08:46 03/18/25 03/19/25 03/19/25 22:59 06:59 14:59 Intake Total 830 / 1190 200 / 1390 360 / 360 Output Total 900 / 900 200 / 1100 Balance -70 / 290 0 / 290 360 / 360 Weight last 48 hrs Weight 210 lb 8 oz Weight 213 lb Physical Exam 2 Narrative: General: No apparent distress, healthy appearing, well nourished HENMT: normoceophalic Neck: No carotid bruit bilaterally Muskuloskeletal: Full ROM Respiratory: Normal respiratory effort, clear to auscultation bilaterally throughout all lung oscar, no use of accessory muscles Cardio: No JVD, regular rate, regular rhythm, S1 S2 normal, no murmurs, peripheral pulses 2+ radial palpated bilaterally Extremities: Full ROM, normal, normal capillary refill, no cyanosis or edema Neuro: Alert and oriented x4, no focal motor deficits Psych: Affect normal, denies suicidal ideation, mental status grossly normal Skin: No rashes or lesions noted, no wounds Data 03/19/25 04:49 03/19/25 04:49 A&P Assessment and plan (1) CAD (coronary artery disease): (2) Chest pain: (3) Atrial fibrillation with RVR: (4) Thrombocytopenia: (5) Left ventricular dysfunction: (6) Premature ventricular contractions: Plan At this time patient is doing well without complaints. Groin site looks good no signs of hematoma. He is well compensated. He does not have any edema and lungs are clear. We will discontinue Lasix and only use it as needed. We will initiate Entresto per heart failure guidelines. We will watch blood pressure and kidney function. If patient continues to do well may be discharged home tomorrow. At this time continue metoprolol 12.5 Plavix aspirin as well as atorvastatin. We will start the patient on Eliquis 5 mg twice daily due to A- fib. We will continue aspirin and Plavix. We will keep this regimen for 1 month. After 1 month we recommend discontinue aspirin and continue Eliquis and Plavix. After [address] Hubbard recommends getting a 30-day event monitor. If patient remains out of A-fib at that time Eliquis may be discontinued and patient will continue aspirin and Plavix again. Patient is currently on Protonix at this time. PDMP PDMP Reviewed: Not Reviewed Attestations 2 Medical Necessity Statement*: deferred to primary Coding Level of Care Code Acute Code for [facility] Diagnoses Coronary artery disease involving [place] coronary artery of [place] heart without angina pectoris I25.10 Coronary Disease-Associated Artery/Lesion type: [place] artery [place] vs. transplanted heart: [place] heart Associated angina: without angina Chest pain, unspecified type R07.9 Chest pain type: unspecified Atrial fibrillation with RVR I48.91 Thrombocytopenia D69.6 Left ventricular dysfunction I51.9 Premature ventricular contractions I49.3
--- NOTE | 2025-03-19 16:00 | PC.NURSE ---
Provided education regarding CHF with stoplight information. Will provide hard copy at discharge. Patient verbalized understanding by asking and answering questions appropriately.
[2025-03-19] MEDS: sacubitril/valsartan 24-26 mg Tablet 1 EACH PO (16:58)
[2025-03-19] MEDS: apixaban 5 mg Tablet PO (21:30)
[2025-03-19] MEDS: atorvastatin 40 mg Tablet PO (21:30)
[2025-03-20] VITALS: BP 121/56; PULSE 70; RESP 11; TEMP 36.8; O2SAT 93
[2025-03-20 04:00] VITALS: BP 104/66; PULSE 81; RESP 20; TEMP 37; O2SAT 94
[2025-03-20 05:25] LABS: Basophils % 0.3 %; Eosinophils # 0.2 10^3/uL (0.0-0.8); Eosinophils % 2.3 %; Hematocrit 40.8 % (37-53); Lymphocytes # 4.2 10^3/uL (0.8-4.8); Lymphocytes % 40.4 %; Mean Corpuscular HGB Conc 31.4 g/dL (30-55); Mean Corpuscular Hemoglobin 31.4 pg (27-33); Mean Platelet Volume 10.4 fL (7.4-10.4); Monocytes # 0.7 10^3/uL (0.2-0.9); Monocytes % 6.3 %; Neutrophils # 5.19 10^3/uL (1.8-7.7); Neutrophils % 50.5 %; Nucleated Red Blood Cells % 0 %; Platelet Count 95 10^3/cmm (157-399); Red Blood Count 4.08 10^6/uL (3.85-5.65); Red Cell Distribution Width 12.6 % (12.1-15.1); White Blood Count 10.28 10^3/uL (3.29-11.43)
[2025-03-20 05:49] LABS: Alanine Aminotransferase 33 U/L (0-41); Albumin Level 3.4 g/dL (3.5-5.2); Alkaline Phosphatase 113 U/L (40-130); Anion Gap 12.4 (5-19); Aspartate Amino Transferase 29 U/L (0-40); Blood Urea Nitrogen 17 mg/dL (8-23); Calcium 8.7 mg/dL (8.5-10.5); Carbon Dioxide 28 mmol/L (22-29); Chloride 105 mmol/L (98-107); Creatinine Clr Calc Pharmacy 81.2665; Globulin 2.3 g/dL (1.3-4.6); Glucose 101 mg/dL (65-115); Magnesium 1.8 mg/dL (1.7-2.3); Osmolality Calculated 294 mOsm/kg (285-295); Potassium 4.4 mmol/L (3.5-5.1); Sodium 141 mmol/L (136-145); Total Bilirubin 1.1 mg/dL (0.15-1.2); Total Protein 5.7 g/dL (6.6-8.7)
[2025-03-20 06:29] LABS: Slide Review Slide Review Perform
[2025-03-20] MEDS: polyethylene glycol 3350 Pkt 17 gm PO (07:48)
[2025-03-20] MEDS: clopidogrel 75 mg Tablet PO (07:48)
[2025-03-20] MEDS: metoprolol succinate ER (24 HR) 25 mg Tablet 12.5 MG PO (07:48)
[2025-03-20] MEDS: sacubitril/valsartan 24-26 mg Tablet 1 EACH PO (07:48)
[2025-03-20] MEDS: pantoprazole DR 40 mg Tablet PO (07:49)
[2025-03-20] MEDS: aspirin 81 mg EC Tablet PO (07:49)
[2025-03-20] MEDS: docusate sodium 100 mg Capsule PO (07:49)
[2025-03-20] MEDS: apixaban 5 mg Tablet PO (07:51)
[2025-03-20 08:00] VITALS: BP 98/71; PULSE 47; RESP 18; TEMP 36.4; O2SAT 97
[2025-03-20] MEDS: albuterol 2.5 mg/3 mL Neb INHALATION (08:34)
[2025-03-20] MEDS: budesonide 0.5 mg/2 mL Neb INHALATION (08:34)
[2025-03-20 08:36] VITALS: PULSE 64; RESP 18; O2SAT 96
[2025-03-20] MEDS: albuterol 2.5 MG/0.5 ML NEB INHALATION (08:37)
--- NOTE | 2025-03-20 09:20 | XR_ITS ---
WS: [id number] XR chest 1V portable [id number] REASON FOR EXAM: cough FINDINGS: Chest is stable compared to 03/16/2025. Moderate tortuosity and ectasia of the thoracic aorta with normal heart size. Calcified granulomatous disease bilaterally. No acute pulmonary parenchymal or pleural abnormality. Moderate degenerative spondylosis in the thoracic spine with mild thoracolumbar scoliosis. XR/XR chest 1V portable [id number] IMPRESSION: Stable chest without acute abnormality.
[2025-03-20] MEDS: azithromycin 250 mg Tablet 500 MG PO (09:59)
--- NOTE | 2025-03-20 11:35 | PM.DCS ---
Discharge Providers Date of Admission: 03/17/25 09:56 Date of Discharge: March 20, 2025 Attending Provider at Admission: Leonard Monge MD Attending Provider at Discharge: Aneta Dang MD Primary Care Provider: RADHA Kelsey Diagnoses at Discharge Discharge Diagnosis (1) CAD (coronary artery disease): Status: Acute Qualifiers: Associated angina: without angina Coronary Disease-Associated Artery/Lesion type: [place] artery [place] vs. transplanted heart: [place] heart Qualified Code(s): I25.10 - Atherosclerotic heart disease of [place] coronary artery without angina pectoris (2) Chest pain: Status: Resolved Qualifiers: Chest pain type: unspecified Qualified Code(s): R07.9 - Chest pain, unspecified (3) Atrial fibrillation with RVR: Status: Resolved (4) Thrombocytopenia: Status: Acute (5) Left ventricular dysfunction: Status: Acute (6) Premature ventricular contractions: Status: Acute Reason for Visit Reason for Visit: SOB / chest pain Hospital Course Hospital Course Patient presented to the hospital with chest pain which was suspicious for ischemia. He was treated for unstable angina with therapeutic Lovenox and eventually went for an angiogram. Please see procedure note for details. He did receive lithotripsy guided PCI to proximal RCA with drug-eluting stent. 2 overlapping drug-eluting stent to mid LAD and IFR guidance appear to be significant. 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 Patient was kept on Aggrastat drip for 2 hours post procedure. During hospitalization Entresto was started. Blood pressure stable. Patient discharged home in stable condition. He was consistently diagnosed with CLL. He will follow-up with oncology as outpatient. At time of discharge patient developed a cough during hospital stay. Respiratory viral panel was negative. I favored this to be a possible bronchitis. Will discharge him on a Z-Tanmay. Patient placed on triple therapy aspirin Plavix and Eliquis for 1 month. He will follow-up with cardiology as an outpatient to adjust antiplatelet anticoagulant. Physical Exam Narrative: General Well-developed well-nourished tall male in no acute cardiopulmonary distress CV irregular irregular rate is controlled no loud murmur Lungs clear to auscultation bilaterally Abdomen positive bowel sounds soft nontender Calves trace pretibial edema no asymmetry pedal pulses intact b/l Discharge Data Studies Completed and Pending Completed Studies During Hospitalization Category Date Time Status XR chest 1V portable [id number] Stat Exams 03/16/25 19:13 Completed Pending at discharge Category Date Time Status WINCH OPERATOR request for service Routine Exams 03/18/25 08:30 Taken XR chest 1V portable [id number] Urgent Exams 03/20/25 09:20 Taken Lipoprotein (a) Routine Lab 03/17/25 01:01 Received Respiratory Panel 2 Routine Lab 03/20/25 09:50 Received Laboratory Results WBC 10.28 10^3/uL (3.29-11.43) 03/20/25 05:02 RBC 4.08 10^6/uL (3.85-5.65) 03/20/25 05:02 Hgb 12.80 g/dL (11.27-16.99) 03/20/25 05:02 Hct 40.8 % (37-53) 03/20/25 05:02 MCV 100.0 fl (82-101) 03/20/25 05:02 MCH 31.4 pg (27-33) 03/20/25 05:02 MCHC 31.4 g/dL (30-55) 03/20/25 05:02 RDW 12.6 % (12.1-15.1) 03/20/25 05:02 Plt Count 95 10^3/cmm (157-399) L 03/20/25 05:02 MPV 10.4 fL (7.4-10.4) 03/20/25 05:02 Neut % (Auto) 50.5 % 03/20/25 05:02 Lymph % (Auto) 40.4 % 03/20/25 05:02 [place] % (Auto) 6.3 % 03/20/25 05:02 Eos % (Auto) 2.3 % 03/20/25 05:02 Baso % (Auto) 0.3 % 03/20/25 05:02 Neut # (Auto) 5.19 10^3/uL (1.8-7.7) 03/20/25 05:02 Lymph # (Auto) 4.2 10^3/uL (0.8-4.8) 03/20/25 05:02 [place] # (Auto) 0.7 10^3/uL (0.2-0.9) 03/20/25 05:02 Eos # (Auto) 0.2 10^3/uL (0.0-0.8) 03/20/25 05:02 Baso # (Auto) 0.0 10^3/uL (0.0-0.1) 03/20/25 05:02 Nucleated RBC % (auto) 0 % 03/20/25 05:02 Nucleated RBCs # 0.0 /100WBC 03/20/25 05:02 PT 13.70 SECONDS (12.1-14.9) 03/16/25 19:12 INR 0.98 (0.8-1.2) 03/16/25 19:12 APTT 24.4 SECONDS (23.9-36.7) 03/18/25 14:50 Sodium 141 mmol/L (136-145) 03/20/25 05:02 Potassium 4.4 mmol/L (3.5-5.1) 03/20/25 05:02 Chloride 105 mmol/L (98-107) 03/20/25 05:02 Carbon Dioxide 28 mmol/L (22-29) 03/20/25 05:02 Anion Gap 12.4 (5-19) 03/20/25 05:02 BUN 17 mg/dL (8-23) 03/20/25 05:02 Creatinine 1.0 mg/dL (0.7-1.2) 03/20/25 05:02 GFR Calculation Not Reportable 03/20/25 05:02 Glucose 101 mg/dL (65-115) 03/20/25 05:02 Calculated Osmolality 294 mOsm/kg (285-295) 03/20/25 05:02 Calcium 8.7 mg/dL (8.5-10.5) 03/20/25 05:02 Magnesium 1.8 mg/dL (1.7-2.3) 03/20/25 05:02 Total Bilirubin 1.1 mg/dL (0.15-1.2) 03/20/25 05:02 AST 29 U/L (0-40) 03/20/25 05:02 ALT 33 U/L (0-41) 03/20/25 05:02 Alkaline Phosphatase 113 U/L (40-130) 03/20/25 05:02 Creatine Kinase 172 U/L (39-308) 03/16/25 19:12 Troponin T Baseline 21 ng/L (0-15) H 03/16/25 19:12 Troponin T 120 Minute 17.76 ng/L (0-15) H 03/16/25 20:50 Delta Troponin T -3.24 ABS# (0-10) L 03/16/25 20:50 Troponin T Hi Sens 6Hr 17.31 ng/L (0-15) H 03/17/25 01:01 Troponin T Hi Sens 6Hr Delta -3.69 ng/L (0-12) L 03/17/25 01:01 C-React Prot High Sens 0.330 mg/dL (0.0-0.3) H 03/17/25 01:01 NT-Pro-B Natriuret Pep 1026 pg/mL (0-125) H 03/16/25 19:12 Total Protein 5.7 g/dL (6.6-8.7) L 03/20/25 05:02 Albumin 3.4 g/dL (3.5-5.2) L 03/20/25 05:02 Globulin 2.3 g/dL (1.3-4.6) 03/20/25 05:02 Triglycerides 112 mg/dL (0-150) 03/17/25 01:01 Cholesterol 105 mg/dL (0-200) 03/17/25 01:01 LDL Cholesterol, Calc 44 mg/dL (50-129) L 03/17/25 01:01 HDL Cholesterol 39 mg/dL (60-100) L 03/17/25 01:01 LDL/HDL Ratio 1.13 RATIO (0.00-3.22) 03/17/25 01:01 Cholesterol/HDL Ratio 2.69 mg/dL (1.0-5.00) 03/17/25 01:01 TSH 4.10 uIU/mL (0.27-4.20) 03/16/25 19:12 Urine Color Yellow (Yellow) 03/16/25 23:21 Urine Appearance Clear (CLEAR) 03/16/25 23:21 Urine pH 6.0 (5-7) 03/16/25 23:21 Ur Specific [place] 1.012 (1.005-1.030) 03/16/25 23:21 Urine Protein Negative (Negative) 03/16/25 23:21 Urine Glucose (UA) Negative (Normal) 03/16/25 23:21 Urine Ketones Negative (Negative) 03/16/25 23:21 Urine Blood Negative (Negative) 03/16/25 23:21 Urine Nitrate Negative (Negative) 03/16/25 23:21 Urine Bilirubin Negative (Negative) 03/16/25 23:21 Urine Urobilinogen 1.0 mg/dL (Negative) 03/16/25 23:21 Ur Leukocyte Esterase Negative (Negative) 03/16/25 23:21 Urine RBC 0-2 /hpf (0-2) 03/16/25 23:21 Urine WBC 0-5 /hpf (0-5) 03/16/25 23:21 Ur Squamous Epith Cells 0-5 /hpf (0-5) 03/16/25 23:21 Amorphous Sediment Not Reportable 03/16/25 23:21 Urine Bacteria None seen /hpf (NONE) 03/16/25 23:21 Hyaline Casts 0-4 /lpf H 03/16/25 23:21 Vitals Last Vital Signs Temp 97.5 F L 03/20/25 08:00 Pulse 64 03/20/25 08:36 Resp 18 03/20/25 08:36 BP 98/71 03/20/25 08:00 Pulse Ox 96 03/20/25 08:36 O2 Del Method Room Air 03/20/25 08:36 Discharge Plan Discharge Patient Disposition: Home Condition: Stable Prescriptions: New atorvastatin 40 mg Tablet 40 mg PO BEDTIME Qty: 30 0RF clopidogrel 75 mg Tablet 75 mg PO DAILY Qty: 30 0RF Eliquis 5 mg Tablet 5 mg PO BID@0900,2100 Qty: 60 0RF Entresto 24-26 mg Tablet 1 tab PO BID Qty: 60 0RF pantoprazole 40 mg Tablet,Delayed Release (Dr/Ec) 40 mg PO DAILY Qty: 30 0RF Continued polyethylene glycol 3350 [Miralax] 17 gram powder in packet 17 g PO BID docusate sodium 100 mg capsule 100 mg PO BID fluticasone propionate [Allergy Relief (fluticasone)] 50 mcg/actuation spray,suspension 2 spray INTRANASAL DAILY PRN (Reason: allergies) Rx Instructions: administer into each nostril albuterol sulfate 90 mcg/actuation HFA aerosol inhaler 2 puff inhalation Q6H PRN (Reason: asthma) metoprolol succinate 25 mg tablet extended release 24 hr 12.5 mg PO DAILY Qty: 45 2RF fluticasone propion-salmeterol [Advair Diskus] 100-50 mcg/dose blister with device 1 inh inhalation BID Qty: 60 6RF aspirin [Adult Low Dose Aspirin] 81 mg tablet,delayed release (DR/EC) 81 mg PO DAILY Qty: 30 0RF Changed furosemide [Lasix] 40 mg tablet 40 mg PO DAILY PRN (Reason: Weight Gain) Qty: 30 0RF Rx Instructions: for weight gain > 3 pounds in 1 day Discontinued esomeprazole magnesium 20 mg capsule,delayed release(DR/EC) 20 mg PO DAILY simvastatin [Zocor] 10 mg tablet 10 mg PO QPM Discharge Orders: Discharge Order (Routine); Ordered 03/20/25 Ordered By: Aneta Dang Referrals: Dimple Amador FNP [Primary Care Provider, Unknown] - 03/28/25 11:40 am Rm Hubbard MD [Physician, Cardiology] - 1 month Jacki Villanueva FNP [Nurse Practitioner, Cardiology] - 04/01/25 2:00 pm Discharge Diet: Cardiac Discharge Activity: Limit activity as instructed Patient Instructions: Atrial Fibrillation, Azithromycin (By mouth) (Zithromax, Zithromax Tri-Tanmay, Zithromax..., Atorvastatin (By mouth) (Lipitor, Atorvaliq), Clopidogrel (By mouth) (Plavix), Pantoprazole (By mouth) (Protonix), Apixaban (By mouth) (Eliquis), Sacubitril/Valsartan (By mouth) (Entresto, Entresto Sprinkle), Congestive Heart Failure, Heart Failure (DC), Chest Pain (DC), Coronary Angioplasty (DC), CHF Stoplight, Opioid Safety, Post Angiogram Home Care Instructions Discharge Attestations Time Spent in Discharge Care*: greater than 30 min Status at Discharge: Cognitive status at discharge: cognitively intact, Behavioral status at discharge: cooperative, Quality Metrics Clinical Quality Measures [ No reported AMI, CVA or VTE this stay] Coding Level of Care Code Acute Code for [facility] Diagnoses Coronary artery disease involving [place] coronary artery of [place] heart without angina pectoris I25.10 Associated angina: without angina Coronary Disease-Associated Artery/Lesion type: [place] artery [place] vs. transplanted heart: [place] heart Chest pain, unspecified type R07.9 Chest pain type: unspecified Atrial fibrillation with RVR I48.91 Thrombocytopenia D69.6 Left ventricular dysfunction I51.9 Premature ventricular contractions I49.3
[2025-03-20 12:00] VITALS: BP 102/62; PULSE 66; RESP 18; TEMP 36.6; O2SAT 99
[2025-03-20 12:29] LABS: Adenovirus Not Detected (NOT DETECT); Chlamydia Pneumoniae Not Detected (NOT DETECT); Coronavirus 229E,HKU1,NL63,OC4 Not Detected (NOT DETECT); Human Metapneumovirus Not Detected (NOT DETECT); Human Rhinovirus/Enterovirus Not Detected (NOT DETECT); Influenza A Not Detected (NOT DETECT); Influenza A H1 Not Detected (NOT DETECT); Influenza A H1-2009 Not Detected (NOT DETECT); Influenza A H3 Not Detected (NOT DETECT); Influenza B Not Detected (NOT DETECT); Mycoplasma Pneumoniae Not Detected (NOT DETECT); Parainfluenza Virus Type 1 Not Detected (NOT DETECT); Parainfluenza Virus Type 2 Not Detected (NOT DETECT); Parainfluenza Virus Type 3 Not Detected (NOT DETECT); Parainfluenza Virus Type 4 Not Detected (NOT DETECT); Respiratory Syncytial Virus A Not Detected (NOT DETECT); Respiratory Syncytial Virus B Not Detected (NOT DETECT); SARS-COV-2 Not Detected (NOT DETECT)
--- NOTE | 2025-03-20 13:25 | PC.NURSE ---
Patient discharged to home. Instruction provided regarding follow up information, new medications, diet, site care with restrictions. Patient verbalized complete understanding. New Rx transmitted to JAMESNarendra. Patient left ambulatory to private vehicle. at side.
[2025-03-20 13:29] VITALS: BP 102/62; PULSE 66; RESP 18; TEMP 36.6; O2SAT 99
--- NOTE | 2025-03-20 14:02 | P.PN_ITS ---
<Statement entered by Rm Hubbard MD - 03/21/25 22:34> Patient was evaluated and cared for in conjunction with an advanced practice practitioner. I personally examined the patient and reviewed the chart and all pertinent data including imaging, telemetry, and laboratory results. I discussed the patient in detail with the advanced practice practitioner. Please see their note for complete H&P testing result and agreed upon plan of care for the patient. Subjective 2 Subjective: Patient doing well today. FEM site looks good. No chest pain or shortness of breath. He had developed a cough and was placed on antibiotic by hospitalist team. Vitals/I&O/Wt Last Vital Signs Temp 97.9 F 03/20/25 13:29 Pulse 66 03/20/25 13:29 Resp 18 03/20/25 13:29 BP 102/62 03/20/25 13:29 Pulse Ox 99 03/20/25 13:29 O2 Del Method Room Air 03/20/25 12:00 03/19/25 03/20/25 03/20/25 22:59 06:59 14:59 Intake Total 640 / 1240 1250 / 2490 240 / 240 Output Total 300 / 300 500 / 800 Balance 340 / 940 750 / 1690 240 / 240 Weight last 48 hrs Weight 209 lb 8 oz Weight 210 lb 8 oz Physical Exam 2 Narrative: General: No apparent distress, healthy appearing, well nourished HENMT: normoceophalic Neck: No carotid bruit bilaterally Muskuloskeletal: Full ROM Respiratory: Normal respiratory effort, clear to auscultation bilaterally throughout all lung oscar, no use of accessory muscles Cardio: No JVD, regular rate, regular rhythm, S1 S2 normal, no murmurs, peripheral pulses 2+ radial palpated bilaterally Extremities: Full ROM, normal, normal capillary refill, no cyanosis or edema Neuro: Alert and oriented x4, no focal motor deficits Psych: Affect normal, denies suicidal ideation, mental status grossly normal Skin: Right groin site clean dry intact without signs of hematoma Data 03/20/25 05:02 03/20/25 05:02 A&P Assessment and plan (1) CAD (coronary artery disease): (2) Chest pain: (3) Atrial fibrillation with RVR: (4) Thrombocytopenia: (5) Left ventricular dysfunction: (6) Premature ventricular contractions: Plan Patient is doing well without complaints. He is tolerating Entresto well. Blood pressure stable. Plan is to get an echo in 45 days. Continue aspirin Plavix and Eliquis for 1 month then discontinue aspirin and continue Plavix and Eliquis. After 6 months plan is to get a 30-day event monitor if patient remains out of A-fib discontinue Eliquis and continue aspirin and Plavix for at least 1 year from then. EF 25 to 30%. Patient has LifeVest in place. Patient will need cardiac rehab on an outpatient basis. Continue metoprolol 12.5 mg. Will follow-up in the clinic in 1 week. Activity instructions as well as heart healthy low-sodium diet was given to patient. Educated to weigh daily and if he gains 3 pounds in a day or lower extremity edema to take 1 Lasix. He will be started on protonix as well. He was educated to monitor for and report s/s of abnormal bleeding. PDMP PDMP Reviewed: Not Reviewed Attestations 2 Medical Necessity Statement*: Deferred to primary. Coding Level of Care Code Acute Code for [facility] Diagnoses Coronary artery disease involving [place] coronary artery of [place] heart without angina pectoris I25.10 Coronary Disease-Associated Artery/Lesion type: [place] artery [place] vs. transplanted heart: [place] heart Associated angina: without angina Chest pain, unspecified type R07.9 Chest pain type: unspecified Atrial fibrillation with RVR I48.91 Thrombocytopenia D69.6 Left ventricular dysfunction I51.9 Premature ventricular contractions I49.3
[2025-03-21 01:50] LABS: Lipoprotein (a) 43 nmol/L (<75)
== END 2025-03-20 13:31 | disposition home or self-care (01) | DRG 324 ==
LOC: ER 20:11 → CSU 21:14
PROVIDERS: Internal Medicine Cardiovascular Disease; Admitting Provider Internal Medicine; Emergency Provider Emergency Medicine; PCP Nurse Practitioner Family; Visit Provider Internal Medicine
PROC: 027237Z Dilation of Coronary Artery, Three Arteries with Four or More Drug-eluting Intraluminal Devices, Percutaneous Approach (ICD-10-PCS; principal; 2025-03-18 08:30)
PROC: 027237Z Dilation of Coronary Artery, Three Arteries with Four or More Drug-eluting Intraluminal Devices, Percutaneous Approach (ICD-10-PCS; 2025-03-18 08:30)
DX: I25.110 Atherosclerotic heart disease of native coronary artery with unstable angina pectoris (principal); I50.22 Chronic systolic (congestive) heart failure; I47.20 Ventricular tachycardia, unspecified; C91.10 Chronic lymphocytic leukemia of B-cell type not having achieved remission; I48.91 Unspecified atrial fibrillation; D69.6 Thrombocytopenia, unspecified; I49.3 Ventricular premature depolarization; K44.9 Diaphragmatic hernia without obstruction or gangrene; Z96.641 Presence of right artificial hip joint; M05.9 Rheumatoid arthritis with rheumatoid factor, unspecified; I42.8 Other cardiomyopathies; K21.9 Gastro-esophageal reflux disease without esophagitis; K22.70 Barrett's esophagus without dysplasia; E78.00 Pure hypercholesterolemia, unspecified; G89.29 Other chronic pain; M54.50 Low back pain, unspecified
CPT/HCPCS: 12345; 36415; 71045; 71260; 74177; 80048; 80053; 80061; 81001; 82550; 83695; 83735; 83880; 84443; 84484; 85025; 85347; 85610; 85730; 86141; 87486; 87581; 87633; 92972; 93005; 93454; 93571; 94640; 96365; 96372; 96375; 96376; 99152; 99153; 99285; C1725; C1761; C1769; C1874; C1887; C1894; C9600; C9601; G0378; J0283; J1644; J1650; J2250; J3010; J3490; J7030; J7040; J7611; J7613; J7626; J9999; Q0144; Q0163; Q9967

== ENCOUNTER → 2025-03-24 13:55 | Outpatient (BNVA) | payer MEDICARE, OTHER, SELFPAY | PROVIDERS: PCP Nurse Practitioner Family; Visit Provider Anesthesiology Pain Medicine | DX: M54.9 Dorsalgia, unspecified (principal); M47.816 Spondylosis without myelopathy or radiculopathy, lumbar region | CPT/HCPCS: 99214 ==

== ENCOUNTER 2025-03-27 11:29 | Oncology outpatient (recurring) (ONCR) | payer MEDICARE, OTHER, SELFPAY | END 2025-04-14 23:59 | disposition home or self-care (01) | PROVIDERS: PCP Nurse Practitioner Family; Visit Provider Anesthesiology Pain Medicine | DX: R16.1 Splenomegaly, not elsewhere classified (principal); D69.6 Thrombocytopenia, unspecified; D72.820 Lymphocytosis (symptomatic); I25.10 Atherosclerotic heart disease of native coronary artery without angina pectoris; Z87.891 Personal history of nicotine dependence; Z79.01 Long term (current) use of anticoagulants | CPT/HCPCS: 99213 ==

== ENCOUNTER → 2025-04-01 14:36 | Outpatient (BNVA) | payer MEDICARE, OTHER, SELFPAY | PROVIDERS: PCP Nurse Practitioner Family; Visit Provider Nurse Practitioner Family | DX: I25.10 Atherosclerotic heart disease of native coronary artery without angina pectoris (principal); I50.20 Unspecified systolic (congestive) heart failure; I49.3 Ventricular premature depolarization; I47.20 Ventricular tachycardia, unspecified; Z79.01 Long term (current) use of anticoagulants; Z79.82 Long term (current) use of aspirin; Z95.5 Presence of coronary angioplasty implant and graft; Z87.891 Personal history of nicotine dependence; I50.9 Heart failure, unspecified; R06.02 Shortness of breath | CPT/HCPCS: 36415; 80048; 83735; 83880; 93005; 99214 ==

== ENCOUNTER 2025-04-15 12:48 | Outpatient (RCR) | payer MEDICARE, OTHER, SELFPAY | END 2025-05-15 23:59 | disposition home or self-care (01) | LOC: CR 12:48 | PROVIDERS: PCP Nurse Practitioner Family; Referring Provider Internal Medicine; Visit Provider Internal Medicine | DX: Z95.5 Presence of coronary angioplasty implant and graft (principal) | CPT/HCPCS: 93798 ==

== ENCOUNTER → 2025-04-17 09:29 | Outpatient (BNVA) | payer MEDICARE, OTHER, SELFPAY | PROVIDERS: PCP Nurse Practitioner Family; Visit Provider Nurse Practitioner Family | DX: I95.9 Hypotension, unspecified (principal); I25.10 Atherosclerotic heart disease of native coronary artery without angina pectoris; I47.20 Ventricular tachycardia, unspecified; I50.9 Heart failure, unspecified; I49.3 Ventricular premature depolarization; Z79.01 Long term (current) use of anticoagulants; Z79.82 Long term (current) use of aspirin; Z87.891 Personal history of nicotine dependence; I51.9 Heart disease, unspecified | CPT/HCPCS: 99214 ==

== ENCOUNTER 2025-04-24 09:28 | Oncology outpatient (recurring) (ONCR) | payer MEDICARE, OTHER, SELFPAY ==
[2025-04-24 10:14] LABS: Hematocrit 43.2 % (37-53); Hemoglobin 13.60 g/dL (11.27-16.99); Mean Corpuscular HGB Conc 31.5 g/dL (30-55); Mean Corpuscular Hemoglobin 30.8 pg (27-33); Mean Corpuscular Volume 97.7 fl (82-101); Nucleated Red Blood Cells % 0 %; Platelet Count 144 10^3/cmm (157-399); Red Blood Count 4.42 10^6/uL (3.85-5.65); White Blood Count 7.97 10^3/uL (3.29-11.43)
[2025-04-24 10:31] LABS: Alanine Aminotransferase 29 U/L (0-41); Albumin Level 4.3 g/dL (3.5-5.2); Alkaline Phosphatase 94 U/L (40-130); Anion Gap 13.7 (5-19); Aspartate Amino Transferase 33 U/L (0-40); Blood Urea Nitrogen 20 mg/dL (8-23); Calcium 9.4 mg/dL (8.5-10.5); Carbon Dioxide 28 mmol/L (22-29); Chloride 103 mmol/L (98-107); Free T4 Free Thyroxine 1.35 ng/dL (0.82-1.77); Globulin 2.5 g/dL (1.3-4.6); Glucose 61 mg/dL (65-115); Magnesium 2.2 mg/dL (1.7-2.3); Osmolality Calculated 291 mOsm/kg (285-295); Potassium 4.7 mmol/L (3.5-5.1); Sodium 140 mmol/L (136-145); Thyroid Stimulating Hormone 3.35 uIU/mL (0.27-4.20); Total Protein 6.8 g/dL (6.6-8.7)
[2025-04-24 14:18] LABS: Vitamin B12 358 pg/mL (232-1245)
[2025-04-25 06:50] LABS: PROTEIN, TOTAL 6.6 g/dL (6.1-8.1)
[2025-04-25 14:04] LABS: RPR w(Moniotor) w/REFL Titer NON-REACTIVE (NON-REACTIVE)
[2025-04-28 21:19] LABS: HTLV I DNA NOT DETECTED; HTLV II DNA NOT DETECTED
[2025-04-29 10:45] LABS: ALPHA 1 GLOBULIN 0.2 g/dL (0.2-0.3); ALPHA 2 GLOBULIN 0.6 g/dL (0.5-0.9); BETA 1 GLOBULIN 0.4 g/dL (0.4-0.6); BETA 2 GLOBULIN 0.3 g/dL (0.2-0.5)
== END 2025-05-15 23:59 | disposition home or self-care (01) ==
PROVIDERS: Psychiatry & Neurology Neurology; PCP Nurse Practitioner Family; Visit Provider Internal Medicine
DX: I51.9 Heart disease, unspecified (principal); D69.6 Thrombocytopenia, unspecified; I49.3 Ventricular premature depolarization; G62.9 Polyneuropathy, unspecified; R16.1 Splenomegaly, not elsewhere classified; I25.10 Atherosclerotic heart disease of native coronary artery without angina pectoris; D72.820 Lymphocytosis (symptomatic); Z79.899 Other long term (current) drug therapy
CPT/HCPCS: 36415; 80053; 82525; 82607; 82746; 83615; 83735; 83921; 84155; 84165; 84439; 84443; 84481; 85025; 85045; 86334; 86592; 86780; 87798; 93798; 99203; 99213

== ENCOUNTER → 2025-05-05 15:44 | Outpatient (BNVA) | payer MEDICARE, OTHER, SELFPAY | PROVIDERS: PCP Nurse Practitioner Family; Visit Provider Nurse Practitioner Family | DX: L57.8 Other skin changes due to chronic exposure to nonionizing radiation (principal); L81.4 Other melanin hyperpigmentation; L82.1 Other seborrheic keratosis; Z08 Encounter for follow-up examination after completed treatment for malignant neoplasm; Z85.828 Personal history of other malignant neoplasm of skin; L82.0 Inflamed seborrheic keratosis; R20.8 Other disturbances of skin sensation; D48.5 Neoplasm of uncertain behavior of skin; L57.0 Actinic keratosis | CPT/HCPCS: 11102; 17000; 17110; 99213 ==

== ENCOUNTER 2025-05-16 12:41 | Outpatient (RCR) | payer MEDICARE, OTHER, SELFPAY | END 2025-06-15 23:59 | disposition home or self-care (01) | LOC: CR 12:41 | PROVIDERS: PCP Nurse Practitioner Family; Referring Provider Internal Medicine; Visit Provider Internal Medicine | DX: Z95.5 Presence of coronary angioplasty implant and graft (principal) | CPT/HCPCS: 93798 ==

== ENCOUNTER → 2025-05-26 12:40 | Outpatient (BNVA) | payer MEDICARE, OTHER, SELFPAY | PROVIDERS: PCP Nurse Practitioner Family; Visit Provider Psychiatry & Neurology Neurology | DX: G60.8 Other hereditary and idiopathic neuropathies (principal); Z79.899 Other long term (current) drug therapy | CPT/HCPCS: 36415; 82306; 84207; 84425; 84591; 99212 ==

== ENCOUNTER → 2025-05-28 13:15 | Outpatient (BNVA) | payer MEDICARE, OTHER, SELFPAY | PROVIDERS: PCP Nurse Practitioner Family; Visit Provider Internal Medicine Cardiovascular Disease | DX: I25.5 Ischemic cardiomyopathy (principal); I48.20 Chronic atrial fibrillation, unspecified; Z79.01 Long term (current) use of anticoagulants; I50.9 Heart failure, unspecified; I25.10 Atherosclerotic heart disease of native coronary artery without angina pectoris; I87.2 Venous insufficiency (chronic) (peripheral); E53.8 Deficiency of other specified B group vitamins; E55.9 Vitamin D deficiency, unspecified; Z87.891 Personal history of nicotine dependence; I73.9 Peripheral vascular disease, unspecified | CPT/HCPCS: 99213 ==

== ENCOUNTER 2025-06-04 13:01 | Oncology outpatient (recurring) (ONCR) | payer MEDICARE, OTHER, SELFPAY ==
[2025-06-04 10:57] LABS: Hematocrit 39.0 % (37-53); Hemoglobin 12.20 g/dL (11.27-16.99); Mean Corpuscular HGB Conc 31.3 g/dL (30-55); Mean Corpuscular Hemoglobin 30.7 pg (27-33); Mean Corpuscular Volume 98.0 fl (82-101); Nucleated Red Blood Cells % 0 %; Platelet Count 106 10^3/cmm (157-399); Red Blood Count 3.98 10^6/uL (3.85-5.65); White Blood Count 6.07 10^3/uL (3.29-11.43)
[2025-06-04 11:25] LABS: Alanine Aminotransferase 26 U/L (0-41); Albumin Level 4.0 g/dL (3.5-5.2); Alkaline Phosphatase 88 U/L (40-130); Anion Gap 12.7 (5-19); Aspartate Amino Transferase 32 U/L (0-40); Blood Urea Nitrogen 23 mg/dL (8-23); Calcium 8.9 mg/dL (8.5-10.5); Carbon Dioxide 26 mmol/L (22-29); Chloride 103 mmol/L (98-107); Creatinine Clr Calc Pharmacy 82.1949; Globulin 2.2 g/dL (1.3-4.6); Glucose 97 mg/dL (65-115); Osmolality Calculated 288 mOsm/kg (285-295); Potassium 4.7 mmol/L (3.5-5.1); Sodium 137 mmol/L (136-145); Total Protein 6.2 g/dL (6.6-8.7)
[2025-06-04 11:27] LABS: Slide Review Slide Review Perform
--- NOTE | 2025-06-04 13:15 | USR_ITS ---
PROCEDURE INFORMATION: Exam: US Duplex Bilateral Lower Extremity Arteries Exam date and time: 06/04/2025 1:20 PM Age: 74 years old Clinical indication: Pain; Leg, lower; Bilateral; Additional info: Pad, claudication TECHNIQUE: Imaging protocol: Real-time ultrasound scan of the arteries of the bilateral lower extremities with 2-D cortez scale, color Doppler flow and spectral waveform analysis. Images documented and saved. COMPARISON: US renal BI* [id number] 05/24/2023 2:47 PM FINDINGS: Right common femoral artery: No occlusion or significant stenosis. Normal waveform. Right superficial femoral artery: No occlusion or significant stenosis. Normal waveform. Right popliteal artery: No occlusion or significant stenosis. Normal waveform. Right calf/foot arteries: No occlusion or significant stenosis in the visualized arteries. Normal waveforms. Dorsalis pedis artery is patent. Right BRYN 1.3. Left common femoral artery: No occlusion or significant stenosis. Normal waveform. Left superficial femoral artery: No occlusion or significant stenosis. Normal waveform. Left popliteal artery: No occlusion or significant stenosis. Normal waveform. Left calf/foot arteries: No occlusion or significant stenosis in the visualized arteries. Normal waveforms. Dorsalis pedis artery is patent. Left BRYN 1.3. US/[place] [id number] IMPRESSION: No stenosis or occlusion.
== END 2025-06-15 23:59 | disposition home or self-care (01) ==
PROVIDERS: Psychiatry & Neurology Neurology; PCP Nurse Practitioner Family; Visit Provider Internal Medicine
DX: I51.9 Heart disease, unspecified (principal); D69.6 Thrombocytopenia, unspecified; I49.3 Ventricular premature depolarization; G62.9 Polyneuropathy, unspecified; R16.1 Splenomegaly, not elsewhere classified; I25.10 Atherosclerotic heart disease of native coronary artery without angina pectoris; D72.820 Lymphocytosis (symptomatic); Z79.899 Other long term (current) drug therapy; I73.9 Peripheral vascular disease, unspecified
CPT/HCPCS: 36415; 80053; 85025; 93925; 99213; 99214

== ENCOUNTER 2025-06-17 14:34 | Oncology outpatient (recurring) (ONCR) | payer MEDICARE, OTHER, SELFPAY ==
--- NOTE | 2025-06-17 15:00 | USCV_ITS ---
Rizwan Lobato Age: 74 Gender: M : 1950 Exam Date: 06/17/2025 15:02 Ordering Phys: Leydi Quevedo NP Technologist: Exam Location: [facility] Indication: Systolic HF BP: 120 / 70 HR: Rhythm: Sinus Technical Quality: Adequate MEASUREMENTS (Male / Female) Normal Values 2D ECHO LV Diastolic Diameter PLAX 5.3 cm 4.2 - 5.9 / 3.9 - 5.3 cm IVS Diastolic Thickness 1.4 cm 0.6 - 1.0 / 0.6 - 0.9 cm IVS Systolic Thickness 1.7 cm LVPW Diastolic Thickness 1.3 cm 0.6 - 1.0 / 0.6 - 0.9 cm LVPW Systolic Thickness 2.2 cm LVOT Diameter 2.3 cm LV Ejection Fraction 2D Teich 59.7 % LV Ejection Fraction MOD 4C 54.4 % LV Ejection Fraction MOD 2C 53.8 % LV Ejection Fraction 2C AL 53.2 % LA Diameter 4.2 cm RA Systolic Volume 4C AL 48.6 ml RA Systolic Volume 4C MOD 46.8 ml LA Sys Volume AL 84.1 cm cubed LA Sys Volume Index AL 37.5 cm cubed/m squared Aorta at Sinotubular Diameter 3.5 cm IVC Diameter 1.6 cm M-MODE LA Ao Ratio MM 2.0 AV Cusp Separation MM 2.3 cm FINDINGS Left Ventricle Diffuse hypokinesis of the left ventricular ejection fraction of 45%. Mildly dilated LV cavity Right Ventricle Normal RV size with a slightly depressed ejection fraction Right Atrium Mildly increased right atrial size. Left Atrium Moderately increased left atrial volume 37.5 ml/m squared. Mitral Valve Mild prolapse of the posterior mitral leaflet. Thickened mitral valves. Aortic Valve Thickened aortic valve. Tricuspid Valve No gross abnormalities noted Pulmonic Valve Pulmonic valve not well visualized. Pericardium No pericardial effusion. Aorta Normal aortic annulus size. IVC Normal inferior vena cava. CONCLUSIONS Diffuse hypokinesis of the left ventricular ejection fraction of 45%. Mildly dilated LV cavity. Mildly increased right atrial size. Moderately increased left atrial volume 37.5 ml/m squared. Mild prolapse of the posterior mitral leaflet. Thickened mitral valves. Thickened aortic valve. There is no pericardial effusion. There are no intracardiac masses. Compared to the study from 03/06/2025,, there is significant improvement in the LV ejection fraction Dr Franky Sterling MD [facility] (Electronically Signed) Final Date: 20 June 2025 17:31 S
== END 2025-07-15 23:59 | disposition home or self-care (01) ==
LOC: ONCMED 14:37
PROVIDERS: PCP Nurse Practitioner Family; Visit Provider Internal Medicine
DX: I51.89 Other ill-defined heart diseases (principal); R93.1 Abnormal findings on diagnostic imaging of heart and coronary circulation; I51.7 Cardiomegaly; I34.1 Nonrheumatic mitral (valve) prolapse; I35.8 Other nonrheumatic aortic valve disorders
CPT/HCPCS: 93308

== ENCOUNTER → 2025-06-27 11:46 | Outpatient (BNVA) | payer MEDICARE, OTHER, SELFPAY | PROVIDERS: PCP Nurse Practitioner Family; Visit Provider Internal Medicine | DX: J44.89 Other specified chronic obstructive pulmonary disease (principal); Z87.891 Personal history of nicotine dependence | CPT/HCPCS: 99214 ==

== ENCOUNTER → 2025-07-01 08:33 | Outpatient (BNVA) | payer MEDICARE, OTHER, SELFPAY | PROVIDERS: PCP Nurse Practitioner Family; Visit Provider Nurse Practitioner Family | DX: L57.8 Other skin changes due to chronic exposure to nonionizing radiation (principal); M71.342 Other bursal cyst, left hand; Z08 Encounter for follow-up examination after completed treatment for malignant neoplasm; Z85.828 Personal history of other malignant neoplasm of skin; Z09 Encounter for follow-up examination after completed treatment for conditions other than malignant neoplasm; Z87.2 Personal history of diseases of the skin and subcutaneous tissue; L82.0 Inflamed seborrheic keratosis; L29.89 Other pruritus; L53.8 Other specified erythematous conditions; R20.8 Other disturbances of skin sensation; D48.5 Neoplasm of uncertain behavior of skin; L57.0 Actinic keratosis | CPT/HCPCS: 11102; 17000; 17110; 99213 ==

== ENCOUNTER → 2025-07-16 08:47 | Outpatient (BNVA) | payer MEDICARE, OTHER, SELFPAY | PROVIDERS: PCP Nurse Practitioner Family; Visit Provider Dermatology | DX: D69.2 Other nonthrombocytopenic purpura (principal); L82.1 Other seborrheic keratosis; C44.619 Basal cell carcinoma of skin of left upper limb, including shoulder | CPT/HCPCS: 17262; 99213 ==

== ENCOUNTER 2025-08-06 13:52 | Oncology outpatient (recurring) (ONCR) | payer MEDICARE, OTHER, SELFPAY ==
[2025-08-04 14:47] LABS: Hematocrit 37.5 % (37-53); Hemoglobin 12.10 g/dL (11.27-16.99); Mean Corpuscular HGB Conc 32.3 g/dL (30-55); Mean Corpuscular Hemoglobin 30.9 pg (27-33); Mean Corpuscular Volume 95.9 fl (82-101); Nucleated Red Blood Cells % 0 %; Platelet Count 130 10^3/cmm (157-399); Red Blood Count 3.91 10^6/uL (3.85-5.65); White Blood Count 8.50 10^3/uL (3.29-11.43)
[2025-08-04 15:14] LABS: Alanine Aminotransferase 20 U/L (0-41); Albumin Level 4.0 g/dL (3.5-5.2); Alkaline Phosphatase 90 U/L (40-130); Anion Gap 12.3 (5-19); Aspartate Amino Transferase 27 U/L (0-40); Blood Urea Nitrogen 21 mg/dL (8-23); Calcium 9.2 mg/dL (8.5-10.5); Carbon Dioxide 27 mmol/L (22-29); Chloride 99 mmol/L (98-107); Ferritin 32 ng/mL (30-400); Globulin 2.2 g/dL (1.3-4.6); Glucose 110 mg/dL (65-115); Iron 60 ug/dL (59-158); Magnesium 1.9 mg/dL (1.7-2.3); Osmolality Calculated 282 mOsm/kg (285-295); Potassium 4.3 mmol/L (3.5-5.1); Sodium 134 mmol/L (136-145); Total Iron Binding Capacity 269 mcg/dl; Total Protein 6.2 g/dL (6.6-8.7); Unsaturated Iron Binding 209 ug/dL (112-347)
[2025-08-04 15:29] LABS: Slide Review Slide Review Perform; Vitamin B12 581 pg/mL (232-1245)
== END 2025-08-15 23:59 | disposition home or self-care (01) ==
PROVIDERS: PCP Nurse Practitioner Family; Visit Provider Internal Medicine
DX: C83.07 Small cell B-cell lymphoma, spleen (principal); Z87.891 Personal history of nicotine dependence
CPT/HCPCS: 36415; 80053; 82306; 82607; 82728; 82746; 83540; 83550; 83735; 83921; 85025; 85045; 99213

== ENCOUNTER → 2025-08-20 12:20 | Outpatient (BNVA) | payer MEDICARE, OTHER, SELFPAY | PROVIDERS: PCP Nurse Practitioner Family; Visit Provider Internal Medicine Cardiovascular Disease | DX: I25.5 Ischemic cardiomyopathy (principal); I25.10 Atherosclerotic heart disease of native coronary artery without angina pectoris; I50.9 Heart failure, unspecified; I48.91 Unspecified atrial fibrillation; J44.89 Other specified chronic obstructive pulmonary disease; I49.3 Ventricular premature depolarization; K22.70 Barrett's esophagus without dysplasia; Z79.01 Long term (current) use of anticoagulants | CPT/HCPCS: 99214 ==

== ENCOUNTER → 2025-08-26 14:45 | Outpatient (BNVA) | payer MEDICARE, OTHER, SELFPAY | PROVIDERS: PCP Nurse Practitioner Family; Visit Provider Nurse Practitioner Family | DX: L57.8 Other skin changes due to chronic exposure to nonionizing radiation (principal); D22.5 Melanocytic nevi of trunk; L82.1 Other seborrheic keratosis; L81.4 Other melanin hyperpigmentation; Z08 Encounter for follow-up examination after completed treatment for malignant neoplasm; Z85.828 Personal history of other malignant neoplasm of skin; L57.0 Actinic keratosis | CPT/HCPCS: 17000; 99213 ==

== ENCOUNTER 2025-10-01 13:21 | Oncology outpatient (recurring) (ONCR) | payer MEDICARE, OTHER, SELFPAY ==
--- NOTE | 2025-09-29 10:00 | USCV_ITS ---
Rizwan Lobato Age: 75 Gender: M : 1950 Exam Date: 09/29/2025 10:07 Ordering Phys: Rm Hubbard MD ([email or web address]) Technologist: Exam Location[place] [facility] [place]ication: ef BP: 134 / 75 HR: Rhythm: Sinus Technical Quality: Adequate MEASUREMENTS (Male / Female) Normal Values 2D ECHO LV Diastolic Diameter PLAX 6.2 cm 4.2 - 5.9 / 3.9 - 5.3 cm IVS Diastolic Thickness 1.3 cm 0.6 - 1.0 / 0.6 - 0.9 cm IVS Systolic Thickness 1.5 cm LVPW Diastolic Thickness 1.6 cm 0.6 - 1.0 / 0.6 - 0.9 cm LVPW Systolic Thickness 1.5 cm LVOT Diameter 2.0 cm LV Ejection Fraction 2D Teich 54.3 % LV Ejection Fraction MOD 4C 53.7 % LV Ejection Fraction MOD 2C 48.5 % LV Ejection Fraction 2C AL 48.4 % LA Diameter 4.4 cm Aorta at Sinotubular Diameter 3.2 cm M-MODE LA Ao Ratio MM 1.4 AV Cusp Separation MM 2.5 cm DOPPLER TR Peak Velocity 349.0 cm/s TR Peak Gradient 48.7 mmHg PV Peak Velocity 117.0 cm/s FINDINGS Left Ventricle Moderately increased left ventricular cavity size. Moderately decreased left ventricular systolic function. Left ventricular ejection fraction is estimated at 40 %. Global left ventricular hypokinesis. Abnormal septal motion consistent with pacemaker. Right Ventricle Right Atrium Left Atrium IA Septum Mitral Valve Aortic Valve Tricuspid Valve Pulmonic Valve Pericardium Aorta IVC CONCLUSIONS Limited echocardiogram Moderately increased left ventricular cavity size. Moderately decreased left ventricular systolic function. Left ventricular ejection fraction is estimated at 40 %. Global left ventricular hypokinesis. Abnormal septal motion consistent with pacemaker. There is no pericardial effusion. Rm Hubbard MD (Electronically Signed) Final Date: 01 October 2025 16:50 S
[2025-09-29 10:33] LABS: Hematocrit 42.2 % (37-53); Hemoglobin 13.10 g/dL (11.27-16.99); Mean Corpuscular HGB Conc 31.0 g/dL (30-55); Mean Corpuscular Hemoglobin 30.6 pg (27-33); Mean Corpuscular Volume 98.6 fl (82-101); Nucleated Red Blood Cells % 0 %; Platelet Count 139 10^3/cmm (157-399); Red Blood Count 4.28 10^6/uL (3.85-5.65); White Blood Count 8.51 10^3/uL (3.29-11.43)
[2025-09-29 10:48] LABS: Slide Review Slide Review Perform
[2025-09-29 10:50] LABS: Alanine Aminotransferase 19 U/L (0-41); Albumin Level 4.2 g/dL (3.5-5.2); Alkaline Phosphatase 88 U/L (40-130); Anion Gap 11.6 (5-19); Aspartate Amino Transferase 26 U/L (0-40); Blood Urea Nitrogen 21 mg/dL (8-23); Calcium 8.9 mg/dL (8.5-10.5); Carbon Dioxide 29 mmol/L (22-29); Chloride 104 mmol/L (98-107); Globulin 2.4 g/dL (1.3-4.6); Glucose 82 mg/dL (65-115); Osmolality Calculated 292 mOsm/kg (285-295); Potassium 4.6 mmol/L (3.5-5.1); Sodium 140 mmol/L (136-145); Total Protein 6.6 g/dL (6.6-8.7); Uric Acid 5.5 mg/dL (3.4-7.0)
[2025-09-30 06:15] LABS: PROTEIN, TOTAL 6.3 g/dL (6.1-8.1)
[2025-09-30 19:29] LABS: ALPHA 1 GLOBULIN 0.2 g/dL (0.2-0.3); ALPHA 2 GLOBULIN 0.6 g/dL (0.5-0.9); BETA 1 GLOBULIN 0.4 g/dL (0.4-0.6); BETA 2 GLOBULIN 0.3 g/dL (0.2-0.5)
== END 2025-10-15 23:59 | disposition home or self-care (01) ==
PROVIDERS: PCP Nurse Practitioner Family; Visit Provider Internal Medicine
DX: C83.07 Small cell B-cell lymphoma, spleen (principal); Z87.891 Personal history of nicotine dependence; I25.10 Atherosclerotic heart disease of native coronary artery without angina pectoris
CPT/HCPCS: 36415; 80053; 82232; 82784; 83010; 83615; 84155; 84165; 84550; 85025; 86334; 93308; 99213